=== PATIENT | female | born 1960 | race Caucasian/White ===

== ENCOUNTER → 2018-02-04 | Outpatient (CLI) | payer BC ==
--- NOTE | 2018-02-08 14:34 | MM ---
Reason for exam: screening (asymptomatic). Last mammogram was performed 2 years and 6 months ago. History: Patient is postmenopausal and had first child at age 34. Took hormonal contraceptives for 5 years beginning at age 19. Physical Findings: A clinical breast exam by your physician is recommended on an annual basis and results should be correlated with mammographic findings. MG 3D Screening Mammo W/Cad Bilateral CC and MLO view(s) were taken. Prior study comparison: August 20, 2015, bilateral MG 3d screening mammo w/cad. August 22, 2010, right breast mammogram dig work up. The breast tissue is extremely dense which could obscure a lesion on mammography. There are typically benign round dystrophic calcifications in both breasts. There is no discrete abnormality. ASSESSMENT: Benign, BI-RAD 2 RECOMMENDATION: Routine screening mammogram of both breasts in 1 year.
== END | disposition home or self-care (01) ==
LOC: RADMAMWWP 10:05
PROVIDERS: ATTEND Family Medicine
DX: Z12.31 Encounter for screening mammogram for malignant neoplasm of breast (principal)
CPT/HCPCS: 77063; 77067

== ENCOUNTER → 2018-12-02 | Outpatient (CLI) | payer BC ==
[2018-12-02 14:29] LABS: HCT 45.3 % (34.0-46.0); HGB 14.4 gm/dL (11.4-16.0); MCH 28.6 pg (25.0-35.0); MCHC 31.9 g/dL (31.0-37.0); MCV 89.6 fL (80.0-100.0); Mean Platelet Volume 7.1; Platelet Count 244 k/uL (150-450); RBC 5.06 m/uL (3.80-5.40); RDW 13.2 % (11.5-15.5)
[2018-12-02 19:43] LABS: Albumin 4.7 g/dL (3.80-4.90); Albumin/Globulin Ratio 2.76 (1.60-3.17); Anion Gap 6.5 mmol/L (4.00-12.00); Calcium 9.3 mg/dL (8.7-10.3); Carbon Dioxide 25.5 mmol/L (21.6-31.8); Globulin 1.7 g/dL (1.6-3.3); Potassium 4.2 mmol/L (3.5-5.5); Total Bilirubin 0.5 mg/dL (0.3-1.2); Total Protein 6.4 g/dL (6.2-8.2)
== END | disposition home or self-care (01) ==
LOC: LABWHC1 12:41
PROVIDERS: ATTEND Thoracic Surgery (Cardiothoracic Vascular Surgery)
DX: E63.8 Other specified nutritional deficiencies (principal)
CPT/HCPCS: 36415; 80053; 84134; 85027

== ENCOUNTER → 2019-02-13 | Outpatient (CLI) | payer BC ==
--- NOTE | 2019-02-14 13:49 | MM ---
Reason for exam: screening (asymptomatic). Last mammogram was performed 1 year ago. History: Patient is postmenopausal and had first child at age 34. Took hormonal contraceptives for 5 years beginning at age 19. Physical Findings: A clinical breast exam by your physician is recommended on an annual basis and results should be correlated with mammographic findings. MG 3D Screening Mammo W/Cad Bilateral CC and MLO view(s) were taken. Prior study comparison: February 04, 2018, bilateral MG 3d screening mammo w/cad. August 20, 2015, bilateral MG 3d screening mammo w/cad. The breast tissue is extremely dense which could obscure a lesion on mammography. Benign appearing bilateral calcifications. No suspicious abnormality. No significant changes when compared with prior studies. ASSESSMENT: Benign, BI-RAD 2 RECOMMENDATION: Routine screening mammogram of both breasts in 1 year.
== END | disposition home or self-care (01) ==
LOC: RADMAMWWP 10:09
PROVIDERS: ATTEND Family Medicine
DX: Z12.31 Encounter for screening mammogram for malignant neoplasm of breast (principal)
CPT/HCPCS: 77063; 77067

== ENCOUNTER → 2019-07-10 | Outpatient (CLI) | payer BC ==
--- NOTE | 2019-07-11 10:30 | BD ---
EXAMINATION TYPE: Axial Bone Density DATE OF EXAM: 07/10/2019 COMPARISON: NONE CLINICAL HISTORY: Z 78.0 Height: 5 FT 7 IN Weight: 174 FRAX RISK QUESTIONS: Secondary Osteoporosis: Current Tobacco Use: YES RISK FACTORS HISTORY OF: Active: YES Postmenopausal woman: AGE 54 Lost more than 2 inches in height since high school: YES MEDICATIONS: Additional Medications: JUST STARTED STEROID PACK FOR INFLAMMATION ,MULTI Additional History: EXAM MEASUREMENTS: Bone mineral densitometry was performed using the [employer] System. Bone mineral density as measured about the Lumbar spine is: ----- L1-L4(G/cm2): 1.007 T Score Values are as follows: ----- L2: -1.7 ----- L3: -1.1 ----- L4: -2.0 ----- L1-L4: -1.4 BASELINE Bone mineral density about the R hip (g/cm2): 0.723 Bone mineral density about the L hip (g/cm2): 0.768 T Score values are as follows: -----R Neck: -2.3 -----L Neck: -1.9 -----R Total: -2.1 -----L Total: -1.7 BASELINE IMPRESSION: Osteopenia (T Score between -2.5 and -1). There is slightly increased risk of fracture and the patient may be considered for treatment. Re-Screen 2-5 years. NOTE: T-SCORE=SD OF THE YOUNG ADULT MEAN.
== END | disposition home or self-care (01) ==
LOC: RADBDWWP 14:02
PROVIDERS: ATTEND Family Medicine
DX: M85.80 Other specified disorders of bone density and structure, unspecified site (principal); Z78.0 Asymptomatic menopausal state
CPT/HCPCS: 77080

== ENCOUNTER 2024-03-31 13:48 | Inpatient (IN) | payer BC, MEDICARE ==
--- NOTE | 2024-03-31 15:07 | ED ---
General Adult HPI - General Chief complaint: Abdominal Pain Stated complaint: abd pain Time Seen by Provider: 03/31/24 14:15 Source: patient, RN notes reviewed, old records reviewed Mode of arrival: ambulatory Limitations: no limitations - History of Present Illness Initial comments: This is a 64-year-old female who presents emergency Department complaining of lower abdominal pain both on the right and the left. Patient states it started yesterday and she had some vomiting yesterday and today is become diarrhea. Patient states diarrhea is profuse. Patient denies any fevers chills. Patient states she has had her gallbladder out she did have a many years ago. Patient denies any back pain. Patient denies dysuria hematuria urinary fr equency. Patient denies any chest pain or difficulty breathing. - Related Data Home Medications Medication Instructions Recorded Confirmed Acetaminophen Tab [Tylenol] 500 mg PO DAILY PRN 11/30/18 12/14/18 Multivitamin [Multivitamins Adult 1 tab PO DAILY 11/30/18 12/14/18 Gummies] Allergies Allergy/AdvReac Type Severity Reaction Status Date / Time codeine Allergy Unknown Verified 03/31/24 14:01 NSAIDS (Non-Steroidal Allergy Rash/Hives Verified 03/31/24 14:01 Anti-Inflamma Review of Systems ROS Statement: Those systems with pertinent positive or pertinent negative responses have been documented in the HPI. ROS Other: All systems not noted in ROS Statement are negative. Past Medical History Additional Past Medical History / Comment(s): varicose veins History of Any Multi-Drug Resistant Organisms: None Reported Past Surgical History: Section, Cholecystectomy, Tonsillectomy Past Psychological History: No Psychological Hx Reported Smoking Status: Current every day smoker Past Alcohol Use History: None Reported Past Drug Use History: None Reported - Past Family History Sister(s) Family Medical History: Cancer Additional Family Medical History / Comment(s): Leukemia,bone cancer General Exam - General Exam Comments Initial Comments: GENERAL: Patient is well-developed and well-nourished. Patient is nontoxic and well- hydrated and is in Mild distress. ENT: Neck is soft and supple. No significant lymphadenopathy is noted. Oropharynx is clear. Dry mucous membranes. Neck has full range of motion without eliciting any pain. There is no thyroid enlargement and no masses were felt. EYES: The sclera were anicteric and conjunctiva were pink and moist. Extraocular movements were intact and pupils were equal round and reactive to light. Eyelids were unremarkable. PULMONARY: Unlabored respirations. Good breath sounds bilaterally. No audible rales rhonchi or wheezing was noted. CARDIOVASCULAR: There is a tachycardic and rhythm without any murmurs gallops or rubs. ABDOMEN: Patient has tenderness in the lower quadrants left and right there is no rebound SKIN: Skin is clear with no lesions or rashes and otherwise unremarkable. NEUROLOGIC: Patient is alert and oriented x3. Cranial nerves II through XII are grossly intact. Motor and sensory are also intact. Normal speech, volume and content. Symmetrical smile. MUSCULOSKELETAL: Normal extremities with adequate strength and full range of motion. No lower extremity swelling or edema. No calf tenderness. LYMPHATICS: No significant lymphadenopathy is noted PSYCHIATRIC: Normal psychiatric evaluation. Limitations: no limitations Course Vital Signs 03/31/24 13:56 Temperature 98.1 F Pulse Rate 115 H Respiratory 18 Rate Blood Pressure 113/72 O2 Sat by Pulse 91 L Oximetry Medical Decision Making - Medical Decision Making EKG is interpreted by myself. EKG shows a sinus tachycardia at 122 bpm [place] interval is 170 QRS 129 QT interval 351 QTC is 424. Patient's shows a right bundle branch block. There is no ST segment elevation Was pt. sent in by a medical professional or institution ([facility], COUNTY ATTORNEY, urgent care, hospital, or fpc...) When possible be specific @ -No Did you speak to anyone other than the patient for history (EMS, parent, family, police, friend...)? What history was obtained from this source @ -[No] Did you review nursing and triage notes (agree or disagree)? Why? @ -[I reviewed and agree with nursing and triage notes] Were old charts reviewed (outside hosp., previous admission, EMS record, old EKG, old radiological studies, urgent care reports/EKG's, fpc records)? Report findings @ -[No old charts were reviewed] Differential Diagnosis? @ -Differential Abdominal Pain Women: Appendicitis, Cholecystitis, diverticulosis, ischemic bowel, pancreatitis, hepatitis, UTI, gastroenteritis, AAA, incarcerated hernia, bowel obstruction, constipation, inflammatory bowel, hepatitis, peptic ulcer disease, splenic infarction, perforated viscus, vulvitis, ovarian torsion, PID, kidney stone, placenta abruption, this is not meant to be an all-inclusive list EKG interpreted by me (3pts min.). @ -[As above] X-rays interpreted by me (1pt min.). @ -[None done] CT interpreted by me (1pt min.). @ -CT scan shows acute appendicitis with probable perforation with small amount of free air throughout the abdomen U/S interpreted by me (1pt. min.). @ -[None done] What testing was considered but not performed or refused? (CT, X-rays, U/S, labs)? Why? @ -[None] What meds were considered but not given or refused? Why? @ -[None] Did you discuss the management of the patient with other professionals (professionals i.e. , PA, COUNTY ATTORNEY, lab, RT, psych nurse, social studies department chair, principal automation engineer, teacher, founder and chief technical officer, lining caser)? Give summary @ -I spoke with Dr. Juarez he agreed to admit the patient he will be taking the patient to the OR Was smoking cessation discussed for >3mins.? @ -[No] Was critical care preformed (if so, how long)? @ -35 minutes Were there social determinants of health that impacted care today? How? (Homelessness, low income, unemployed, alcoholism, drug addiction, transportation, low edu. Level, literacy, decrease access to med. care, care home, rehab)? @ -[No] Was there de-escalation of care discussed even if they declined (Discuss DNR or withdrawal of care, Hospice)? DNR status @ -[No] What co-morbidities impacted this encounter? (DM, HTN, Smoking, COPD, CAD, Cancer, CVA, ARF, Chemo, Hep., AIDS, mental health diagnosis, sleep apnea, morbid obesity)? @ -[None] Was patient admitted / discharged? Hospital course, mention meds given and route, prescriptions, significant lab abnormalities, going to OR and other pertinent info. @ -Acute appendicitis. Patient was started on Zosyn. Dr. Lynch was contacted who be taking the patient to the OR Undiagnosed new problem with uncertain prognosis? @ -[No] Drug Therapy requiring intensive monitoring for toxicity (Heparin, Nitro, Insulin, Cardizem)? @ -[No] Were any procedures done? @ -[No] Diagnosis/symptom? @ -Acute appendicitis Acute, or Chronic, or Acute on Chronic? @ -Acute Uncomplicated (without systemic symptoms) or Complicated (systemic symptoms)? @ -Complicated Side effects of treatment? @ -[No] Exacerbation, Progression, or Severe Exacerbation? @ -[No] Poses a threat to life or bodily function? How? (Chest pain, [place], [place], pneumonia, PE, COPD, DKA, ARF, appy, cholecystitis, CVA, Diverticulitis, Homicidal, Suicidal, threat to staff... and all critical care pts) @ -Yes this could lead to sepsis and endorgan dysfunction - Lab Data Result diagrams: 03/31/24 14:50 03/31/24 14:50 Lab Results 03/31/24 03/31/24 03/31/24 Range/Units 14:50 14:50 14:50 WBC 14.3 H (3.8-10.6) k/uL RBC 5.71 H (3.80-5.40) m/uL Hgb 16.4 H (11.4-16.0) gm/dL Hct 50.1 H (34.0-46.0) % MCV 87.6 (80.0-100.0) fL MCH 28.7 (25.0-35.0) pg MCHC 32.7 (31.0-37.0) g/dL RDW 12.7 (11.5-15.5) % Plt Count 274 (150-450) k/uL MPV 7.9 Neutrophils % 88 % Lymphocytes % 6 % Monocytes % 4 % Eosinophils % 1 % Basophils % 0 % Neutrophils # 12.6 H (1.3-7.7) k/uL Lymphocytes # 0.9 L (1.0-4.8) k/uL Monocytes # 0.6 (0-1.0) k/uL Eosinophils # 0.1 (0-0.7) k/uL Basophils # 0.0 (0-0.2) k/uL Sodium 134 L (137-145) mmol/L Potassium 3.3 L (3.5-5.1) mmol/L Chloride 102 (98-107) mmol/L Carbon Dioxide 19 L (22-30) mmol/L Anion Gap 13 mmol/L BUN 22 H (7-17) mg/dL Creatinine 1.25 H (0.52-1.04) mg/dL Est GFR (CKD-EPI)AfAm 52 (>60 ml/min/1.73 sqM) Est GFR (CKD-EPI)NonAf 45 (>60 ml/min/1.73 sqM) Glucose 159 H (74-99) mg/dL Plasma Lactic Acid Alonso 2.6 H* (0.7-2.0) mmol/L Calcium 9.7 (8.4-10.2) mg/dL Total Bilirubin 2.7 H (0.2-1.3) mg/dL AST 24 (14-36) U/L ALT 16 (4-34) U/L Alkaline Phosphatase 121 (38-126) U/L Total Protein 6.9 (6.3-8.2) g/dL Albumin 4.2 (3.5-5.0) g/dL Amylase 34 (30-110) U/L Lipase 21 L (23-300) U/L C. difficile (EIA) Intrp (Negative) 03/31/24 Range/Units 15:08 WBC (3.8-10.6) k/uL RBC (3.80-5.40) m/uL Hgb (11.4-16.0) gm/dL Hct (34.0-46.0) % MCV (80.0-100.0) fL MCH (25.0-35.0) pg MCHC (31.0-37.0) g/dL RDW (11.5-15.5) % Plt Count (150-450) k/uL MPV Neutrophils % % Lymphocytes % % Monocytes % % Eosinophils % % Basophils % % Neutrophils # (1.3-7.7) k/uL Lymphocytes # (1.0-4.8) k/uL Monocytes # (0-1.0) k/uL Eosinophils # (0-0.7) k/uL Basophils # (0-0.2) k/uL Sodium (137-145) mmol/L Potassium (3.5-5.1) mmol/L Chloride (98-107) mmol/L Carbon Dioxide (22-30) mmol/L Anion Gap mmol/L BUN (7-17) mg/dL Creatinine (0.52-1.04) mg/dL Est GFR (CKD-EPI)AfAm (>60 ml/min/1.73 sqM) Est GFR (CKD-EPI)NonAf (>60 ml/min/1.73 sqM) Glucose (74-99) mg/dL Plasma Lactic Acid Alonso (0.7-2.0) mmol/L Calcium (8.4-10.2) mg/dL Total Bilirubin (0.2-1.3) mg/dL AST (14-36) U/L ALT (4-34) U/L Alkaline Phosphatase (38-126) U/L Total Protein (6.3-8.2) g/dL Albumin (3.5-5.0) g/dL Amylase (30-110) U/L Lipase (23-300) U/L C. difficile (EIA) Intrp Negative (Negative) Disposition Clinical Impression: Acute appendicitis with perforation and localized peritonitis Disposition: ADMITTED IP TO THIS HOSP Referrals: Rex Funes MD [Primary Care Provider] - 1-2 days Time of Disposition: 18:49
[2024-03-31 16:26] LABS: Basophils % (A) 0 %; Eosinophils # (A) 0.1 k/uL (0-0.7); Eosinophils % (A) 1 %; HCT 50.1 % (34.0-46.0); HGB 16.4 gm/dL (11.4-16.0); Lymphocytes # (A) 0.9 k/uL (1.0-4.8); Lymphocytes % (A) 6 %; MCH 28.7 pg (25.0-35.0); MCHC 32.7 g/dL (31.0-37.0); MCV 87.6 fL (80.0-100.0); Mean Platelet Volume 7.9; Monocytes # (A) 0.6 k/uL (0-1.0); Monocytes % (A) 4 %; Neutrophils # (A) 12.6 k/uL (1.3-7.7); Neutrophils % (A) 88 %; Platelet Count 274 k/uL (150-450); RBC 5.71 m/uL (3.80-5.40); RDW 12.7 % (11.5-15.5); WBC 14.3 k/uL (3.8-10.6)
[2024-03-31 16:41] LABS: ALT 16 U/L (4-34); AST 24 U/L (14-36); African American GFR (CKD) 52 (>60 ml/min/1.73 sqM); Albumin 4.2 g/dL (3.5-5.0); Alkaline Phosphatase 121 U/L (38-126); Amylase 34 U/L (30-110); Anion Gap 13 mmol/L; Blood Urea Nitrogen 22 mg/dL (7-17); Calcium 9.7 mg/dL (8.4-10.2); Carbon Dioxide 19 mmol/L (22-30); Chloride 102 mmol/L (98-107); Glucose 159 mg/dL (74-99); Lipase 21 U/L (23-300); Non-African American GFR(CKD) 45 (>60 ml/min/1.73 sqM); Potassium 3.3 mmol/L (3.5-5.1); Sodium 134 mmol/L (137-145); Total Bilirubin 2.7 mg/dL (0.2-1.3); Total Protein 6.9 g/dL (6.3-8.2)
[2024-03-31] MEDS: DIPHENOX-ATROP 2.5-0.025 MG 1 EACH TAB PO STA (16:50)
[2024-03-31] MEDS: SODIUM CHLORIDE 0.9% 1,000 ML IV ONE ×2 (16:51→18:59)
[2024-03-31] MEDS: ONDANSETRON 4 MG/2 ML VIAL IVP STA (16:51)
[2024-03-31] MEDS: SODIUM CHLORIDE 0.9% 500 ML 500 ML IV ONE (16:52)
--- NOTE | 2024-03-31 18:33 | CT ---
EXAMINATION TYPE: CT abdomen pelvis w con CT DLP: 855 mGycm, Automated exposure control for dose reduction was used. DATE OF EXAM: 03/31/2024 6:02 PM COMPARISON: None. CLINICAL INDICATION:Female, 64 years old with history of Lower abdominal pain; Lower abdominal pain. no history. TECHNIQUE: Axial CT abdomen pelvis w con;Sagittal and coronal reformats were created on a separate w orkstation. Contrast used:80ml mL of Isovue 300 with IV Contrast, (none if empty) Oral contrast used: without Oral Contrast (none if empty) FINDINGS: LOWER CHEST: Atelectasis changes in the lung bases right ABDOMEN LIVER: Unremarkable GALLBLADDER AND BILE DUCTS: The gallbladder is surgically absent. PANCREAS: Unremarkable. SPLEEN: Unremarkable. ADRENAL GLANDS: Unremarkable. KIDNEYS AND URETERS: No evidence of hydronephrosis or renal calculus. The ureters are unremarkable. PELVIS BLADDER: Unremarkable REPRODUCTIVE: Unremarkable. ABDOMEN & PELVIS STOMACH AND BOWEL: No evidence of bowel obstruction. Short segment of circumferential wall thickening of kristine small bowel in the right lower quadrant with wall thickening up to 7 mm at the terminal ileu m. Appendicolith in the ostium of the appendix measuring 5 mm wit dilation of the appendix and fat stran ding. The appendix measures 18 mm and diameter. Scattered free air is seen throughout the abdomen. PERITONEUM/RETROPERITONEUM: Scattered foci of pneumoperitoneum seen throughout the abdomen. Structure s no free fluid layering in the pelvis. VASCULATURE: No evidence of aortic aneurysm. MUSCULOSKELETAL: No acute osseous abnormalities LYMPH NODES: No gross evidence for lymphadenopathy. SOFT TISSUE/ABDOMINAL WALL: Unremarkable IMPRESSION: 1. Acute appendicitis with obstructing calculus at the ostium of the appendix and pneumoperitoneum s uggesting rupture. Free fluid in the pelvis without organizing fluid collection. Surgical consultatio n recommended. 2. Short segment of terminal ileum wall thickening possibly reactive to #1. Correlate for enteritis. 3. Colonic diverticulosis. Findings communicated to Dr. Francisco Gatica MD on 03/31/2024 6:[address] Musa Fraga.
[2024-03-31] MEDS: PIPERACILLIN-TAZOBACTAM 3.375 GM in SODIUM CHLORIDE 0.9% 100 ML IVPB STA (18:38)
[2024-03-31] MEDS ORDERED: NEOSTIGMINE 1 MG/ML 10 ML VIAL ONE (20:00)
[2024-03-31] MEDS ORDERED: LIDOCAINE 1% INJ 10MG/ML (20 ML MDV) ONE (20:00)
[2024-03-31] MEDS ORDERED: PROPOFOL 10 MG/ML 20 ML VIAL IV ONE (20:00)
[2024-03-31] MEDS ORDERED: fentaNYL (PF) 50 MCG/ML 2 ML AMP ONE (20:00)
[2024-03-31] MEDS ORDERED: ONDANSETRON 4 MG/2 ML VIAL ONE (20:00)
[2024-03-31] MEDS ORDERED: SUGAMMADEX SODIUM 200 MG/2 ML SDV IV ONE (20:00)
[2024-03-31] MEDS ORDERED: PHENYLEPHRINE-0.9% NACL SYG 1,000 MCG/10 ML SYRINGE ONE (20:00)
[2024-03-31] MEDS ORDERED: GLYCOPYRROLATE 0.2 MG/ML 2 ML VIAL ONE (20:00)
[2024-03-31] MEDS ORDERED: MIDAZOLAM 2 MG/2 ML VIAL ONE (20:00)
[2024-03-31] MEDS ORDERED: HEPARIN SODIUM,PORCINE 5,000 UNIT/ML 1 ML VIAL ONE (20:00)
[2024-03-31] MEDS ORDERED: ROCURONIUM 10 MG/ML (5 ML VIAL) IV ONE (20:00)
[2024-03-31] MEDS ORDERED: SUCCINYLCHOLINE CHLORIDE 200 MG/10 ML VIAL IV ONE (20:00)
[2024-03-31] MEDS: IV FLUID CONTINUATION 100 ML IV ONE (20:03)
--- NOTE | 2024-03-31 20:04 | P.GSHP ---
History of Present Illness H&P Date: 03/31/24 Chief Complaint: abdominal pain is a 64-year-old female who has a 48 hour history of severe abdominal pain. Patient was worked up and Roman. She has evidence of perforated appendicitis. Past Medical History Additional Past Medical History / Comment(s): varicose veins History of Any Multi-Drug Resistant Organisms: None Reported Past Surgical History: Section, Cholecystectomy, Tonsillectomy Past Psychological History: No Psychological Hx Reported Smoking Status: Current every day smoker Past Alcohol Use History: None Reported Past Drug Use History: None Reported - Past Family History Sister(s) Family Medical History: Cancer Additional Family Medical History / Comment(s): Leukemia,bone cancer Medications and Allergies Home Medications Medication Instructions Recorded Confirmed Type Acetaminophen Tab [Tylenol] 500 mg PO DAILY PRN 11/30/18 03/31/24 History Multivitamin [Multivitamins Adult 1 tab PO DAILY 11/30/18 03/31/24 History Gummies] Allergies Allergy/AdvReac Type Severity Reaction Status Date / Time codeine Allergy Unknown Verified 03/31/24 19:07 NSAIDS (Non-Steroidal Allergy Rash/Hives Verified 03/31/24 19:07 Anti-Inflamma Surgical - Exam Vital Signs Temp Pulse Resp BP Pulse Ox 98.1 F 115 H 18 113/72 91 L 03/31/24 13:56 03/31/24 13:56 03/31/24 13:56 03/31/24 13:56 03/31/24 13:56 - General well developed, well nourished, no distress - Eyes PERRL - ENT normal pinna - Neck no masses - Respiratory normal expansion - Cardiovascular Rhythm: regular - Abdomen patient has multiple laparotomy scars. She is tender on the right side with tenderness on palpation and rebound. Results - Labs 03/31/24 14:50 03/31/24 14:50 Abnormal Lab Results - Last 24 Hours (Table) 03/31/24 03/31/24 03/31/24 Range/Units 14:50 14:50 14:50 WBC 14.3 H (3.8-10.6) k/uL RBC 5.71 H (3.80-5.40) m/uL Hgb 16.4 H (11.4-16.0) gm/dL Hct 50.1 H (34.0-46.0) % Neutrophils # 12.6 H (1.3-7.7) k/uL Lymphocytes # 0.9 L (1.0-4.8) k/uL Sodium 134 L (137-145) mmol/L Potassium 3.3 L (3.5-5.1) mmol/L Carbon Dioxide 19 L (22-30) mmol/L BUN 22 H (7-17) mg/dL Creatinine 1.25 H (0.52-1.04) mg/dL Glucose 159 H (74-99) mg/dL Plasma Lactic Acid Alonso 2.6 H* (0.7-2.0) mmol/L Total Bilirubin 2.7 H (0.2-1.3) mg/dL Lipase 21 L (23-300) U/L 03/31/24 Range/Units 19:10 WBC (3.8-10.6) k/uL RBC (3.80-5.40) m/uL Hgb (11.4-16.0) gm/dL Hct (34.0-46.0) % Neutrophils # (1.3-7.7) k/uL Lymphocytes # (1.0-4.8) k/uL Sodium (137-145) mmol/L Potassium (3.5-5.1) mmol/L Carbon Dioxide (22-30) mmol/L BUN (7-17) mg/dL Creatinine (0.52-1.04) mg/dL Glucose (74-99) mg/dL Plasma Lactic Acid Alonso 2.9 H* (0.7-2.0) mmol/L Total Bilirubin (0.2-1.3) mg/dL Lipase (23-300) U/L Diabetes panel 03/31/24 Range/Units 14:50 Sodium 134 L (137-145) mmol/L Potassium 3.3 L (3.5-5.1) mmol/L Chloride 102 (98-107) mmol/L Carbon Dioxide 19 L (22-30) mmol/L BUN 22 H (7-17) mg/dL Creatinine 1.25 H (0.52-1.04) mg/dL Glucose 159 H (74-99) mg/dL Calcium 9.7 (8.4-10.2) mg/dL AST 24 (14-36) U/L ALT 16 (4-34) U/L Alkaline Phosphatase 121 (38-126) U/L Total Protein 6.9 (6.3-8.2) g/dL Albumin 4.2 (3.5-5.0) g/dL Calcium panel 03/31/24 Range/Units 14:50 Calcium 9.7 (8.4-10.2) mg/dL Albumin 4.2 (3.5-5.0) g/dL Pituitary panel 03/31/24 Range/Units 14:50 Sodium 134 L (137-145) mmol/L Potassium 3.3 L (3.5-5.1) mmol/L Chloride 102 (98-107) mmol/L Carbon Dioxide 19 L (22-30) mmol/L BUN 22 H (7-17) mg/dL Creatinine 1.25 H (0.52-1.04) mg/dL Glucose 159 H (74-99) mg/dL Calcium 9.7 (8.4-10.2) mg/dL Adrenal panel 03/31/24 Range/Units 14:50 Sodium 134 L (137-145) mmol/L Potassium 3.3 L (3.5-5.1) mmol/L Chloride 102 (98-107) mmol/L Carbon Dioxide 19 L (22-30) mmol/L BUN 22 H (7-17) mg/dL Creatinine 1.25 H (0.52-1.04) mg/dL Glucose 159 H (74-99) mg/dL Calcium 9.7 (8.4-10.2) mg/dL Total Bilirubin 2.7 H (0.2-1.3) mg/dL AST 24 (14-36) U/L ALT 16 (4-34) U/L Alkaline Phosphatase 121 (38-126) U/L Total Protein 6.9 (6.3-8.2) g/dL Albumin 4.2 (3.5-5.0) g/dL - Imaging CT scan - abdomen: report reviewed (18 mm dilated appendix with fat stranding with possible perforation.) Assessment and Plan Assessment: ruptured appendix. Patient was taken for laparoscopic possible open appendectomy.
[2024-03-31] MEDS: IV FLUID CONTINUATION 1,000 ML IV ONE ×3 (20:10→21:37)
[2024-03-31] MEDS: LIDOCAINE 1%-EPI 1:100,000 20 ML VIAL SQ ONE (20:21)
[2024-03-31] MEDS ORDERED: NALOXONE 0.4 MG/ML 1 ML VIAL IV PRN (20:51)
--- NOTE | 2024-03-31 20:51 | P.OP ---
Date of Procedure: 03/31/24 Preoperative Diagnosis: perforated appendicitis Postoperative Diagnosis: perforated appendicitis Procedure(s) Performed: laparoscopic appendectomy with drainage of abscess Anesthesia: ELOY Surgeon: Kyle Collins Estimated Blood Loss (ml): 5 Pathology: other (appendix) Condition: stable Disposition: PACU Description of Procedure: HarThe patient's placed on the operating table in the supine position. The patient received general anesthesia. The abdomen was prepped and draped in the usual sterile fashion. The skin was anesthetized 1% local Xylocaine at the trocar sites. Using an 11 blade the skin was incised at the umbilicus. The umbilicus was grasped with a Damon clamp and then a Veress needle was placed into the peritoneal cavity. Position of the Veress needle was confirmed with positive drop test. After adequate insufflation a 5 mm trocar was placed into the peritoneal cavity. The abdomen was further insufflated. And then the laparoscope was placed in the peritoneal cavity. Next a 5 mm trocar was placed in the midline suprapubic position. And then a 10 mm trocar was placed in the midline epigastric position. The patient was rotated with the right side up and in Trendelenburg. The appendix was visualized. The appendix appeared to be inflamed. the appendix was perforated near the base of the appendix.The appendix was grasped and then using the Harmonic scissors the mesoappendix was divided. the base of the appendix and cecum were divided using the laparoscopic DENNIS stapler. The appendix was placed into an Endo Catch and brought out through the 10 mm trocar site. The abdomen was irrigated. a SHELL drains placed in the right lower quadrant. This was brought out through the epigastric port site. The SHELL drain secured with 2-0 nylon.There is no bleeding seen. The trochars withdrawn. The skin was closed interrupted 3-0 Monocryl suture. Dermabond dressing was applied. Patient was sent to recovery room in stable condition.
[2024-03-31] MEDS: LACTATED RINGERS 1,000 ML IV SCH (21:09)
[2024-03-31] MEDS: HYDROcodone/APAP 5-325MG 1 EACH TAB PO PRN (22:09)
[2024-03-31] MEDS: KETOROLAC 15 MG/ML 1 ML VIAL IVP SCH (23:11)
[2024-04-01] MEDS: SODIUM CHLORIDE 0.9% 500 ML 500 ML IV ONE (00:32)
[2024-04-01] MEDS ORDERED: PIPERACILLIN-TAZOBACTAM 3.375 GM in SODIUM CHLORIDE 0.9% 100 ML IVPB SCH (01:00)
[2024-04-01] MEDS: SODIUM CHLORIDE 0.9% 500 ML BAG IV STA (01:28)
[2024-04-01] MEDS: PIPERACILLIN-TAZOBACTAM 3.375 GM in SODIUM CHLORIDE 0.9% 100 ML IVPB SCH (01:28)
[2024-04-01 02:36] LABS: Basophils % (A) 0 %; Eosinophils % (A) 0 %; HCT 38.9 % (34.0-46.0); Lymphocytes # (A) 1.1 k/uL (1.0-4.8); Lymphocytes % (A) 8 %; MCH 29.3 pg (25.0-35.0); MCHC 32.5 g/dL (31.0-37.0); MCV 90.1 fL (80.0-100.0); Mean Platelet Volume 8.3; Monocytes # (A) 0.7 k/uL (0-1.0); Monocytes % (A) 5 %; Neutrophils # (A) 11.7 k/uL (1.3-7.7); Neutrophils % (A) 86 %; Platelet Count 211 k/uL (150-450); RBC 4.32 m/uL (3.80-5.40); RDW 12.8 % (11.5-15.5); WBC 13.7 k/uL (3.8-10.6)
[2024-04-01] MEDS: LACTATED RINGERS 1,000 ML IV SCH (02:42)
[2024-04-01 02:45] LABS: HGB 12.7 gm/dL (11.4-16.0)
[2024-04-01 02:58] LABS: African American GFR (CKD) 80 (>60 ml/min/1.73 sqM); Anion Gap 7 mmol/L; Blood Urea Nitrogen 19 mg/dL (7-17); Calcium 7.6 mg/dL (8.4-10.2); Carbon Dioxide 18 mmol/L (22-30); Chloride 110 mmol/L (98-107); Glucose 106 mg/dL (74-99); Non-African American GFR(CKD) 70 (>60 ml/min/1.73 sqM); Potassium 3.4 mmol/L (3.5-5.1); Sodium 135 mmol/L (137-145)
[2024-04-01] MEDS: ENOXAPARIN 30 MG/0.3 ML SYRINGE SQ SCH (08:58)
[2024-04-01] MEDS: ACETAMINOPHEN TAB 325 MG TAB PO PRN (09:04)
[2024-04-01 09:49] LABS: Basophils # (A) 0.05 X 10*3/uL (0.00-0.10); Basophils % (A) 0.4 %; Eosinophils # (A) 0.16 X 10*3/uL (0.04-0.35); Eosinophils % (A) 1.2 %; HCT 38.9 % (37.2-46.3); HGB 12.8 g/dL (12.0-15.0); Lymphocytes # (A) 1.51 X 10*3/uL (0.90-5.00); Lymphocytes % (A) 10.9 %; MCH 28.2 pg (27.0-32.0); MCHC 32.9 g/dL (32.0-37.0); MCV 85.7 FL (80.0-97.0); Monocytes # (A) 1.09 X 10*3/uL (0.20-1.00); Monocytes % (A) 7.9 %; NRBC Per 100 WBC 0 X 10*3/uL (0.00-0.01); Neutrophils # (A) 11.01 X 10*3/uL (1.80-7.70); Neutrophils % (A) 79.2 %; Platelet Count 203 X 10*3/uL (140-440); RBC 4.54 X 10*6/uL (4.10-5.20); RDW 13.8 % (11.5-14.5); WBC 13.88 X 10*3/uL (4.50-10.00)
[2024-04-01 09:57] LABS: ALT 10 U/L (8-44); AST 13 U/L (13-35); Albumin 3.1 g/dL (3.8-4.9); Albumin/Globulin Ratio 1.82 Ratio (1.60-3.17); Alkaline Phosphatase 90 U/L (41-126); Calcium 7.6 mg/dL (8.7-10.3); Carbon Dioxide 19.8 mmol/L (21.6-31.8); Chloride 106 mmol/L (96-109); Globulin 1.7 g/dL (1.6-3.3); Glucose 94 mg/dL (70-110); Potassium 3.9 mmol/L (3.5-5.5); Sodium 137 mmol/L (135-145); Total Protein 4.8 g/dL (6.2-8.2)
[2024-04-01 16:33] LABS: Appearance,Urine Cloudy (Clear); Bilirubin,Urine Negative (Negative); Blood,Urine Trace (Negative); Color,Urine Yellow; Glucose,Urine (UA) Negative (Negative); Hyaline Casts,Urine 1 /lpf (0-2); Ketones,Urine Negative (Negative); Leukocyte Esterase,Urine Negative (Negative); Mucus,Urine Rare /hpf; Nitrite,Urine Negative (Negative); Protein,Urine 1+ (Negative); RBC,Urine 6 /hpf (0-5); Specific Gravity,Urine 1.036 (1.001-1.035); Squamous Epithelial Cell,Urine 1 /hpf (0-4); Urobilinogen,Urine <2.0 mg/dL (<2.0); WBC,Urine 4 /hpf (0-5)
--- NOTE | 2024-04-01 16:33 | P.PN ---
Progress Note - Text Progress Note Date: 04/01/24 CHIEF COMPLAINT: Abdominal Pain. HISTORY OF PRESENT ILLNESS: Patient states she is having a lot of fatigue and still considerable abdominal pain. She did tolerate CLD. PHYSICAL EXAM: VITAL SIGNS: Reviewed. GENERAL: no acute distress. HEENT: scleral icterus ABDOMEN: Soft. mildly distended. Incisions C/D/I skin: Jaundiced ASSESSMENT: 1. POD #1 Laparoscopic Appendectomy secondary to Perforated Appendicitis PLAN: -Advance to Low Fat Diet -Pain and Nausea Control -OOB, ambulate, IS -Likely discharge tomorrow
--- NOTE | 2024-04-02 07:14 | P.CONS ---
History of Present Illness - Reason for Consult Consult date: 04/01/24 Perforated appendicitis Requesting physician: Kyle Collins - Chief Complaint Abdominal pain x 2 days - History of Present Illness Patient is a 64-year-old female with a past medical history significant for varicose vein current everyday smoker presenting to the hospital yesterday afternoon for evaluation of abdominal pain that has been going on for about a day before presentation to the hospital patient pain has been mostly to the right lower abdominal and across the lower abdominal area patient was describing the pain to be sharp moderate to severe intensity did have associated vomiting and an episode of diarrhea patient did have some chills denies high- grade fever with the symptoms the patient was evaluated on presentation to the hospital patient was afebrile and no fever have been recorded subsequently patient was tachycardic mildly hypertensive but not requiring any pressor support not hypoxic or need for supplemental oxygen patient did have a white count of 13.7 creatinine 0.88 patient did have a abdominal pelvis CT with evidence of acute appendicitis and pneumoperitoneum suggestive of rupture free fluid in the pelvis short segment of primarily with thickening possibly reactive patient was taken to the OR and the patient is status post laparoscopic appendectomy with drainage of the abscess patient has been admitted to the hospital started on Zosyn infectious disease was consulted for further management of antibiotic therapy Review of Systems Positive point and negatives has been mentioned in the HPI, complete review of systems was performed and all other systems are negative Past Medical History Additional Past Medical History / Comment(s): varicose veins History of Any Multi-Drug Resistant Organisms: None Reported Past Surgical History: Appendectomy, Section, Cholecystectomy, Tonsillectomy Past Anesthesia/Blood Transfusion Reactions: No Reported Reaction Past Psychological History: No Psychological Hx Reported Smoking Status: Current every day smoker Past Alcohol Use History: None Reported Past Drug Use History: None Reported - Past Family History Sister(s) Family Medical History: Cancer Additional Family Medical History / Comment(s): Leukemia,bone cancer Father Family Medical History: Diabetes Mellitus Medications and Allergies Home Medications Medication Instructions Recorded Confirmed Type Acetaminophen Tab [Tylenol] 500 mg PO DAILY PRN 11/30/18 03/31/24 History Multivitamin [Multivitamins Adult 1 tab PO DAILY 11/30/18 03/31/24 History Gummies] Allergies Allergy/AdvReac Type Severity Reaction Status Date / Time codeine Allergy Unknown Verified 03/31/24 19:07 NSAIDS (Non-Steroidal Allergy Rash/Hives Verified 03/31/24 19:07 Anti-Inflamma Physical Exam Vitals: Vital Signs Temp Pulse Pulse Pulse Resp BP BP 04/01/24 08:00 97.3 F L 100 18 04/01/24 07:50 04/01/24 07:49 04/01/24 07:43 70/42 04/01/24 06:23 98.0 F 94 17 04/01/24 05:47 87/56 04/01/24 05:13 98.0 F 91 17 04/01/24 04:20 91 18 04/01/24 03:59 90 17 04/01/24 02:50 89 18 04/01/24 02:35 94 17 04/01/24 02:20 93 16 04/01/24 02:05 99 16 04/01/24 01:50 89 16 04/01/24 01:43 92 16 04/01/24 01:35 95 16 04/01/24 01:14 93 17 04/01/24 01:00 04/01/24 00:46 04/01/24 00:35 04/01/24 00:18 03/31/24 23:54 03/31/24 23:52 99 03/31/24 23:20 102 H 18 03/31/24 22:50 102 H 18 03/31/24 22:35 101 H 17 03/31/24 22:25 20 03/31/24 22:20 99 18 03/31/24 22:05 98.5 F 101 H 18 03/31/24 21:50 95 17 03/31/24 21:41 96 16 03/31/24 21:31 91 16 03/31/24 21:16 90 16 03/31/24 21:01 98.1 F 87 16 03/31/24 13:56 98.1 F 115 H 18 113/72 BP BP Pulse Ox 04/01/24 08:00 80/50 94 L 04/01/24 07:50 84/56 04/01/24 07:49 77/52 04/01/24 07:43 04/01/24 06:23 81/51 93 L 04/01/24 05:47 04/01/24 05:13 85/52 93 L 04/01/24 04:20 87/55 94 L 04/01/24 03:59 90/57 95 04/01/24 02:50 86/51 94 L 04/01/24 02:35 85/52 94 L 04/01/24 02:20 83/50 94 L 04/01/24 02:05 84/51 94 L 04/01/24 01:50 89/56 96 04/01/24 01:43 92/56 95 04/01/24 01:35 92/56 95 04/01/24 01:14 81/47 94 L 04/01/24 01:00 84/53 04/01/24 00:46 78/50 04/01/24 00:35 80/49 04/01/24 00:18 72/45 03/31/24 23:54 92/62 03/31/24 23:52 86/56 03/31/24 23:20 91/59 93 L 03/31/24 22:50 94/60 93 L 03/31/24 22:35 91/59 93 L 03/31/24 22:25 03/31/24 22:20 82/52 93 L 03/31/24 22:05 98/61 93 L 03/31/24 21:50 89/58 92 L 03/31/24 21:41 96/55 92 L 03/31/24 21:31 96/55 96 03/31/24 21:16 86/52 95 03/31/24 21:01 86/54 95 03/31/24 13:56 91 L Intake and Output 03/31/24 04/01/24 04/01/24 22:59 06:59 14:59 Intake Total 1600 2200 Output Total 50 735 Balance 1550 1465 Intake: IV 1600 Intake, IV Titration 2200 Amount Lactated Ringers 1,000 ml 500 @ 125 mls/hr IV .Q8H [facility] Rx#:[id number] Lactated Ringers 1,000 ml 600 @ 150 mls/hr IV .Q6H40M [facility] Rx#:[id number] Piperacillin-Tazobactam 3 100 .375 gm In Sodium Chloride 0.9% 100 ml @ 25 mls/hr IVPB Q8H [facility] Rx#: [id number] Sodium Chloride 0.9% 500 500 ml 500 ml @ 999 mls/hr IV .Q31M [facility] Rx#:[id number] Sodium Chloride 0.9% 500 500 ml 500 ml @ 999 mls/hr IV .Q31M [facility] Rx#:[id number] Output: Drainage 45 65 Abdomen 45 65 Urine 450 Post Void Residual 220 Estimated Blood Loss 5 Other: # Voids 1 Weight 79.379 kg GENERAL DESCRIPTION: Elderly female lying in bed, no distress. No tachypnea or accessory muscle of respiration use. HEENT: Shows Pallor , no scleral icterus. Oral mucous membrane is dry. No pharyngeal erythema or thrush NECK: Trachea central, no thyromegaly. LUNGS: Unlabored breathing. Clear to auscultation anteriorly. No wheeze or crackle. HEART: S1, S2, regular rate and rhythm. No loud murmur ABDOMEN: Soft, 9984 tenderness no guarding or rigidity EXTREMITIES: No edema of feet. SKIN: No rash, no masses palpable. NEUROLOGICAL: The patient is awake, alert, oriented x3, mood and affect normal. Results CBC & Chem 7: 04/01/24 05:54 04/01/24 05:54 Labs: Abnormal Lab Results - Last 24 Hours (Table) 03/31/24 03/31/24 03/31/24 Range/Units 14:50 14:50 14:50 WBC 14.3 H (3.8-10.6) k/uL RBC 5.71 H (3.80-5.40) m/uL Hgb 16.4 H (11.4-16.0) gm/dL Hct 50.1 H (34.0-46.0) % Immature Gran # (0.00-0.04) X 10*3/uL Neutrophils # 12.6 H (1.3-7.7) k/uL Lymphocytes # 0.9 L (1.0-4.8) k/uL Monocytes # (0.20-1.00) X 10*3/uL Sodium 134 L (137-145) mmol/L Potassium 3.3 L (3.5-5.1) mmol/L Chloride (98-107) mmol/L Carbon Dioxide 19 L (22-30) mmol/L BUN 22 H (7-17) mg/dL Creatinine 1.25 H (0.52-1.04) mg/dL Glucose 159 H (74-99) mg/dL Plasma Lactic Acid Alonso 2.6 H* (0.7-2.0) mmol/L Calcium (8.4-10.2) mg/dL Total Bilirubin 2.7 H (0.2-1.3) mg/dL Total Protein (6.2-8.2) g/dL Albumin (3.8-4.9) g/dL Lipase 21 L (23-300) U/L 03/31/24 04/01/24 04/01/24 Range/Units 19:10 01:21 01:21 WBC 13.7 H (3.8-10.6) k/uL RBC (3.80-5.40) m/uL Hgb (11.4-16.0) gm/dL Hct (34.0-46.0) % Immature Gran # (0.00-0.04) X 10*3/uL Neutrophils # 11.7 H (1.3-7.7) k/uL Lymphocytes # (1.0-4.8) k/uL Monocytes # (0.20-1.00) X 10*3/uL Sodium 135 L (137-145) mmol/L Potassium 3.4 L (3.5-5.1) mmol/L Chloride 110 H (98-107) mmol/L Carbon Dioxide 18 L (22-30) mmol/L BUN 19 H (7-17) mg/dL Creatinine (0.52-1.04) mg/dL Glucose 106 H (74-99) mg/dL Plasma Lactic Acid Alonso 2.9 H* (0.7-2.0) mmol/L Calcium 7.6 L (8.4-10.2) mg/dL Total Bilirubin (0.2-1.3) mg/dL Total Protein (6.2-8.2) g/dL Albumin (3.8-4.9) g/dL Lipase (23-300) U/L 04/01/24 04/01/24 Range/Units 05:54 05:54 WBC 13.88 H (3.8-10.6) k/uL RBC (3.80-5.40) m/uL Hgb (11.4-16.0) gm/dL Hct (34.0-46.0) % Immature Gran # 0.06 H (0.00-0.04) X 10*3/uL Neutrophils # 11.01 H (1.3-7.7) k/uL Lymphocytes # (1.0-4.8) k/uL Monocytes # 1.09 H (0.20-1.00) X 10*3/uL Sodium (137-145) mmol/L Potassium (3.5-5.1) mmol/L Chloride (98-107) mmol/L Carbon Dioxide 19.8 L (22-30) mmol/L BUN (7-17) mg/dL Creatinine (0.52-1.04) mg/dL Glucose (74-99) mg/dL Plasma Lactic Acid Alonso (0.7-2.0) mmol/L Calcium 7.6 L (8.4-10.2) mg/dL Total Bilirubin 2.0 H (0.2-1.3) mg/dL Total Protein 4.8 L (6.2-8.2) g/dL Albumin 3.1 L (3.8-4.9) g/dL Lipase (23-300) U/L Assessment and Plan (1) Acute appendicitis with perforation and localized peritonitis Current Visit: Yes Status: Acute Code(s): K35.32 - AC APPENDICITIS W PERF, LOC PERITONITIS, & GANGR, W/O ABSCS SNOMED Code(s): 927149674 (2) Leukocytosis Current Visit: Yes Status: Acute Code(s): D72.829 - ELEVATED WHITE BLOOD CELL COUNT, UNSPECIFIED SNOMED Code(s): 521517822 Plan: 1patient presented to hospital with abdominal pain nausea and vomiting and this patient has been diagnosed with a perforated appendicitis with intra-abdominal abscess status post appendectomy and drainage of the abscess will need to cover for the enteric gram-negative both aerobes and anaerobes 2-blood cultures will be obtained the patient spiked any fever as the patient has already started on antibiotics 3-plan at this time is to continue with Zosyn 3.375 g every 8 hour and monitor clinical course closely Question and concerns were answered We will follow on clinical condition and cultures to further adjust medication if needed Thank you for this consultation we will follow the patient along with you Dictation was produced using [employer] dictation software. please excuse any grammatical, word or spelling errors. Time with Patient: Greater than 30
[2024-04-02] MEDS: ONDANSETRON 4 MG/2 ML VIAL IVP PRN (08:13)
--- NOTE | 2024-04-02 10:16 | P.PN ---
Subjective Progress Note Date: 04/02/24 Patient states she feels better. On exam vital signs appear stable. Abdomen is soft. Incision sites are clean dry intact. SHELL drain has some serous fluid. Status post laparoscopic appendectomy for acute perforated appendicitis. Patient received IV antibiotics and supportive care. Objective - Vital Signs Vital signs: Vital Signs Temp 97.3 F L 04/02/24 07:18 Pulse 106 H 04/02/24 07:18 Resp 18 04/02/24 07:18 BP 109/70 04/02/24 07:18 Pulse Ox 92 L 04/02/24 07:18 FiO2 Intake & Output 04/01/24 04/02/24 04/02/24 18:59 06:59 18:59 Intake Total 1900 Output Total 60 50 Balance -60 1850 Intake: Intake, IV Titration 1900 Amount Lactated Ringers 1,000 ml 1800 @ 150 mls/hr IV .Q6H40M [facility] Rx#:[id number] Piperacillin-Tazobactam 3 100 .375 gm In Sodium Chloride 0.9% 100 ml @ 25 mls/hr IVPB Q8H [facility] Rx#: [id number] Output: Drainage 60 50 Abdomen 60 50 Other: # Voids 1 2 - Labs CBC & Chem 7: 04/01/24 05:54 04/01/24 05:54 Labs: Abnormal Lab Results - Last 24 Hours (Table) 04/01/24 Range/Units 14:50 Urine Appearance Cloudy H (Clear) Ur Specific [place] 1.036 H (1.001-1.035) Urine Protein 1+ H (Negative) Urine Blood Trace H (Negative) Urine RBC 6 H (0-5) /hpf Urine Mucus Rare H (None) /hpf
--- NOTE | 2024-04-02 20:41 | P.PN ---
Subjective Progress Note Date: 04/02/24 Principal diagnosis: Reason for follow-up is perforated appendicitis with abscess Patient is a 64-year-old female with a past medical history significant for varicose vein current everyday smoker presenting to the hospital with abdominal pain has been diagnosed with perforated appendicitis status post laparoscopic appendectomy and drainage of the abscess. On today's evaluation that is 04/02/2024,the patient did have low-grade fever 100.1 last evening however the patient denies any fever or any chills this morning, patient is breathing comfortably on 3 L current oxygen, the patient denies chest pain shortness of breath and no significant cough, patient denies did have some nausea but no vomiting some abdominal discomfort controlled with the pain medication no bowel movement. Patient did not have any lab draw today blood cultures are pending Objective - Vital Signs Vital signs: Vital Signs Temp 97.3 F L 04/02/24 07:18 Pulse 106 H 04/02/24 07:18 Resp 18 04/02/24 07:18 BP 109/70 04/02/24 07:18 Pulse Ox 92 L 04/02/24 07:18 FiO2 Intake & Output 04/01/24 04/02/24 04/02/24 18:59 06:59 18:59 Intake Total 1900 Output Total 60 50 Balance -60 1850 Intake: Intake, IV Titration 1900 Amount Lactated Ringers 1,000 ml 1800 @ 150 mls/hr IV .Q6H40M [facility] Rx#:[id number] Piperacillin-Tazobactam 3 100 .375 gm In Sodium Chloride 0.9% 100 ml @ 25 mls/hr IVPB Q8H [facility] Rx#: [id number] Output: Drainage 60 50 Abdomen 60 50 Other: # Voids 1 2 - Exam GENERAL DESCRIPTION: An elderly female lying in bed in no distress RESPIRATORY SYSTEM: Unlabored breathing , decreased breath sounds at bases HEART: S1 S2 regular rate and rhythm , ABDOMEN: Soft , mild tenderness EXTREMITIES: No edema feet - Labs CBC & Chem 7: 04/01/24 05:54 04/01/24 05:54 Labs: Abnormal Lab Results - Last 24 Hours (Table) 04/01/24 04/01/24 Range/Units 05:54 14:50 Carbon Dioxide 19.8 L (21.6-31.8) mmol/L Calcium 7.6 L (8.7-10.3) mg/dL Total Bilirubin 2.0 H (0.3-1.2) mg/dL Total Protein 4.8 L (6.2-8.2) g/dL Albumin 3.1 L (3.8-4.9) g/dL Urine Appearance Cloudy H (Clear) Ur Specific [place] 1.036 H (1.001-1.035) Urine Protein 1+ H (Negative) Urine Blood Trace H (Negative) Urine RBC 6 H (0-5) /hpf Urine Mucus Rare H (None) /hpf Assessment and Plan (1) Acute appendicitis with perforation and localized peritonitis Current Visit: Yes Status: Acute Code(s): K35.32 - AC APPENDICITIS W PERF, LOC PERITONITIS, & GANGR, W/O ABSCS SNOMED Code(s): 246773961 (2) Leukocytosis Current Visit: Yes Status: Acute Code(s): D72.829 - ELEVATED WHITE BLOOD CELL COUNT, UNSPECIFIED SNOMED Code(s): 132960167 Plan: 1patient presented to hospital with abdominal pain nausea and vomiting and this patient has been diagnosed with a perforated appendicitis with intra-abdominal abscess status post appendectomy and drainage of the abscess will need to cover for the enteric gram-negative both aerobes and anaerobes 2-blood cultures has been obtained and results will be followed 3-patient to continue with Zosyn 3.375 g every 8 hour and monitor clinical course closely Dictation was produced using [employer] dictation software. please excuse any grammatical, word or spelling errors. Time with Patient: Less than 30
--- NOTE | 2024-04-02 23:01 | PN ---
PROGRESS NOTE DATE OF SERVICE: 04/01/2024 CHIEF COMPLAINT: Status post appendectomy. HISTORY OF PRESENT ILLNESS: This lady is doing fairly well, but she has quite a bit of discomfort. She is not vomiting. Temperature is down. PHYSICAL EXAMINATION: CHEST: Clear. CARDIAC: Normal. ABDOMEN: Reveals scant heart sounds. IMPRESSION: 1. Status post appendectomy. 2. Chronic obstructive pulmonary disease. PLAN: Continue to follow postoperatively. She is doing well. MMODL / IJN: [id number] /
--- NOTE | 2024-04-02 23:16 | PN ---
PROGRESS NOTE DATE OF SERVICE: 04/02/2024 CHIEF COMPLAINT: Status post appendectomy. HISTORY OF PRESENT ILLNESS: This lady passed a little bit of stool. She is still quite uncomfortable. Temperature has been down. PHYSICAL EXAMINATION: CHEST: Clear. CARDIAC: Normal. IMPRESSION: 1. Status post appendectomy. 2. Chronic obstructive pulmonary disease. PLAN: Slowly advance activity and diet. MMODL / IJN: [id number] /
--- NOTE | 2024-04-03 01:01 | HP ---
HISTORY AND PHYSICAL CHIEF COMPLAINT: Abdominal pain and vomiting. HISTORY OF PRESENT ILLNESS: This is first known admission for this 64-year-old otherwise healthy female. She states that the day before coming to the hospital, she started to have lower abdominal pain. Later in the day, she started to vomit and came into the hospital where she was found to have an acute appendicitis. REVIEW OF SYSTEMS: Otherwise unremarkable. Past medical history, family history, and personal and social histories are unremarkable and noncontributory. PHYSICAL EXAMINATION: VITAL SIGNS: Normal. HEAD, EARS, EYES, NOSE, MOUTH AND THROAT: Normal. NECK: Neck veins are not distended. CHEST: Clear. CARDIAC: Normal. ABDOMEN: Flat and bowel sounds are absent. EXTREMITIES: Normal. NEUROLOGICAL: She is intact. IMPRESSION: She is admitted to the hospital with diagnoses of, 1. Acute appendicitis. 2. Nicotine abuse. RECOMMENDATION: None. Thank you respectfully, ARMANI / ORTIZ: [id number] /
[2024-04-03 08:26] LABS: Basophils % (A) 0 %; Eosinophils # (A) 0.1 k/uL (0-0.7); Eosinophils % (A) 1 %; HCT 36.9 % (34.0-46.0); HGB 12.2 gm/dL (11.4-16.0); Lymphocytes % (A) 6 %; MCH 29.2 pg (25.0-35.0); MCV 88.3 fL (80.0-100.0); Mean Platelet Volume 7.8; Monocytes # (A) 0.7 k/uL (0-1.0); Monocytes % (A) 4 %; Neutrophils # (A) 14.6 k/uL (1.3-7.7); Neutrophils % (A) 87 %; Platelet Count 252 k/uL (150-450); RBC 4.18 m/uL (3.80-5.40); WBC 16.7 k/uL (3.8-10.6)
--- NOTE | 2024-04-03 12:29 | XR ---
EXAMINATION TYPE: XR abdomen 2V DATE OF EXAM: 04/03/2024 COMPARISON: NONE HISTORY: Pain TECHNIQUE: Single supine KUB image of the abdomen is obtained FINDINGS: Scattered air-fluid level seen which may reflect ileus. Basilar atelectasis and small effusions suspe cted. No convincing evidence for pneumoperitoneum. No unusual calcifications. The lung bases are clear. The osseous structures are intact. IMPRESSION: 1. Overall nonobstructive bowel gas pattern. Relate for ileus. Progress studies are advised.
[2024-04-03] MEDS: FAMOTIDINE 20 MG/2 ML VIAL IV SCH (14:03)
--- NOTE | 2024-04-03 14:23 | P.PN ---
Subjective Progress Note Date: 04/03/24 CHIEF COMPLAINT: Appendicitis HISTORY OF PRESENT ILLNESS: Patient is postop day #3 status post laparoscopic appendectomy with drainage of abscess. Patient had increased abdominal pain last night. She was reporting pain 7 out of 10. Pain currently a 2 out of 10. She denies any nausea or vomiting. She did have a loose bowel movement and flatus. She is currently NPO. She is mildly tachycardic. WBC is up from 13.8- 16.7 PHYSICAL EXAM: VITAL SIGNS: Reviewed. GENERAL: Well-developed in no acute distress. ABDOMEN: Soft. Mildly distended. Mild tenderness at incision sites. NEUROLOGIC: Alert and oriented. Cranial nerves II through XII grossly intact. ASSESSMENT: 1. Acute perforated appendicitis PLAN: -Abdominal x-ray ordered. Results reported ileus. -Advance diet to clears -Continue to monitor -Continue antibiotics -Encourage patient to ambulate -Encourage patient use incentive spirometer -DVT prophylaxis Lovenox and GI prophylaxis Pepcid Physician Computer Hardware Engineer note has been reviewed by physician. Signing provider agrees with the documented findings, assessment, and plan of care. Objective - Vital Signs Vital signs: Vital Signs Temp 97.9 F 04/03/24 07:31 Pulse 104 H 04/03/24 09:16 Resp 17 04/03/24 09:16 BP 105/65 04/03/24 07:31 Pulse Ox 93 L 04/03/24 07:31 FiO2 Intake & Output 04/02/24 04/03/24 04/03/24 18:59 06:59 18:59 Intake Total 1950 Balance 1950 Intake: Intake, IV Titration 1950 Amount Lactated Ringers 1,000 ml 1800 @ 150 mls/hr IV .Q6H40M [facility] Rx#:[id number] Piperacillin-Tazobactam 3 150 .375 gm In Sodium Chloride 0.9% 100 ml @ 25 mls/hr IVPB Q8H [facility] Rx#: [id number] Other: # Voids 4 3 # Bowel Movements 2 - Labs CBC & Chem 7: 04/03/24 08:15 04/01/24 05:54 Labs: Abnormal Lab Results - Last 24 Hours (Table) 04/03/24 Range/Units 08:15 WBC 16.7 H (3.8-10.6) k/uL Neutrophils # 14.6 H (1.3-7.7) k/uL Microbiology - Last 24 Hours (Table) 04/01/24 01:21 Blood Culture - Preliminary Blood
--- NOTE | 2024-04-03 21:04 | P.PN ---
Subjective Progress Note Date: 04/03/[address] Funes Consult reason: Medical management, status post appendectomy History of present illness: This is a 64-year-old female who was recently admitted under surgical services and follows with Dr. Funes in the outpatient setting reporting having increased abdominal pain in the lower region that progressively got worse and started vomiting and came to the hospital for further evaluation. Patient was noted to have an acute appendicitis and is status post acute appendectomy. Patient notes that her appendix was perforated. Patient is afebrile although white count is elevated again at 16 and maintained on antibiotics with infectious disease following. Repeat blood cultures pending and current cultures are negative. Patient also currently maintained on 4 L of oxygen via nasal cannula and noted to be a significant amount of IV fluids. Will decrease the rate and x-ray of the abdomen is ordered and recommend chest x-ray. Patient reports he does not wear any oxygen outpatient. Patient also noted to have mildly elevated heart rate and will obtain EKG. Per nursing staff patient has not been getting up and moving postoperatively. Will consult PT/OT therapy and encouraged to increase activity as tolerated. Diet per surgery services. Recommend to continue with bowel regimen due to pain management. Review of systems: Constitutional: No reports of fatigue, fever, or chills Cardiovascular: No reports of chest pain or palpitations Respiratory: No reports of shortness of breath or cough GI: reports of nausea, no reports of vomiting, no bowel movement today : No reports of dysuria or retention Neurovascular: reports of generalized weakness, continued abdominal pain All medications have been reviewed PHYSICAL EXAMINATION: GENERAL: The patient is alert and oriented x4, Well developed, elderly appearing, ill-appearing HEENT: Pupils are round and equally reacting to light. EOMI. no scleral icterus. No conjunctival pallor. Normocephalic, atraumatic. No pharyngeal erythema. No thyromegaly. CARDIOVASCULAR: S1 and S2 muffled PULMONARY: diminished breath sounds bilaterally with no wheezing or rhonchi noted. ABDOMEN: soft. tender on exam. . Mildly distended, normoactive bowel sounds. No palpable organomegaly. MUSCULOSKELETAL: No joint swelling or deformity. EXTREMITIES: No cyanosis, clubbing, or pedal edema. NEUROLOGICAL: Gross neurological examination did not reveal any focal deficits. Diffuse weakness SKIN: No rashes. Assessment: Abdominal pain secondary to acute appendicitis with perforation, status post appendectomy Leukocytosis, secondary to above Continued ongoing nicotine dependence Chronic obstructive pulmonary disease GI prophylaxis DVT prophylaxis Full code Plan: Recommend to continue with current medications and management per general surgery. Patient is status post appendectomy maintained on antibiotics with infectious disease following also patient's white count Is elevated at 16, abdominal x-ray ordered with concerns of possible ileus, will order chest x-ray and also recommend lowering the fluid rate to 75 cc/h Ordered incentive spirometer and encouraged to use at least 10 times every hour while awake PT/OT therapy to evaluate Repeat labs ordered for a.m. Replace electrolytes per protocol Encouraged to increase activity as tolerated We will continue to follow with general surgery during hospitalization. Thank you kindly for this consultation. The impression and plan of care has been dictated by Mirta Duke, nurse practitioner as directed. Dr. Benjamin MD I have performed a history and examination and MDM of this patient, discussed the same with the dictator, and agree with the dictator's assessment and plan as written ,documented as a scribe. Based on total visit time, I have performed more than 50% of the visit. Any additional findings or plans will be noted. Objective - Vital Signs Vital signs: Vital Signs Temp 97.9 F 04/03/24 07:31 Pulse 104 H 04/03/24 09:16 Resp 17 04/03/24 09:16 BP 105/65 04/03/24 07:31 Pulse Ox 93 L 04/03/24 07:31 FiO2 Intake & Output 04/02/24 04/03/24 04/03/24 18:59 06:59 18:59 Intake Total 1950 Balance 1950 Intake: Intake, IV Titration 1950 Amount Lactated Ringers 1,000 ml 1800 @ 150 mls/hr IV .Q6H40M [facility] Rx#:[id number] Piperacillin-Tazobactam 3 150 .375 gm In Sodium Chloride 0.9% 100 ml @ 25 mls/hr IVPB Q8H [facility] Rx#: [id number] Other: # Voids 4 3 # Bowel Movements 2 - Labs CBC & Chem 7: 04/03/24 08:15 04/01/24 05:54 Labs: Abnormal Lab Results - Last 24 Hours (Table) 04/03/24 Range/Units 08:15 WBC 16.7 H (3.8-10.6) k/uL Neutrophils # 14.6 H (1.3-7.7) k/uL Microbiology - Last 24 Hours (Table) 04/01/24 01:21 Blood Culture - Preliminary Blood
--- NOTE | 2024-04-03 21:30 | XR ---
EXAMINATION TYPE: XR chest 1V portable DATE OF EXAM: 04/03/2024 9:16 PM CLINICAL INDICATION:Female, 64 years old with history of shortness of breath COMPARISON: None TECHNIQUE: XR chest 1V portable Frontal view of the chest. FINDINGS: Patchy airspace opacities with interstitial prominence bilaterally. Small right and trace left pleura l effusions. The cardiac silhouette is mildly enlarged. No pneumothorax. No acute osseous abnormaliti es. IMPRESSION: 1. Mild cardiomegaly with pulmonary edema and bilateral pleural effusions as described concerning for congestive heart process. 2. Concomitant patchy airspace opacities may relate to underlying infectious/inflammatory process.
[2024-04-03] MEDS: FUROSEMIDE 10 MG/ML 2 ML VIAL IV ONE (21:57)
[2024-04-04 08:45] LABS: BUN/Creat Ratio 19.17 Ratio (12.00-20.00); Blood Urea Nitrogen 11.5 mg/dL (9.0-27.0); Calcium 8.1 mg/dL (8.7-10.3); Carbon Dioxide 25.9 mmol/L (21.6-31.8); Chloride 101 mmol/L (96-109); Glucose 106 mg/dL (70-110); Magnesium 1.5 mg/dL (1.5-2.4); Potassium 3.1 mmol/L (3.5-5.5); Sodium 137 mmol/L (135-145)
[2024-04-04 08:53] LABS: Basophils # (A) 0.09 X 10*3/uL (0.00-0.10); Basophils % (A) 0.5 %; Eosinophils # (A) 0.08 X 10*3/uL (0.04-0.35); Eosinophils % (A) 0.5 %; HCT 34.7 % (37.2-46.3); HGB 11.7 g/dL (12.0-15.0); Lymphocytes # (A) 1.49 X 10*3/uL (0.90-5.00); Lymphocytes % (A) 8.6 %; MCH 28.7 pg (27.0-32.0); MCHC 33.7 g/dL (32.0-37.0); MCV 85.3 FL (80.0-97.0); Mean Platelet Volume 10.5 FL (9.5-12.2); Monocytes # (A) 1.49 X 10*3/uL (0.20-1.00); Monocytes % (A) 8.6 %; NRBC Per 100 WBC 0 X 10*3/uL (0.00-0.01); Neutrophils # (A) 13.82 X 10*3/uL (1.80-7.70); Neutrophils % (A) 80.2 %; Platelet Count 234 X 10*3/uL (140-440); RBC 4.07 X 10*6/uL (4.10-5.20); RDW 14.1 % (11.5-14.5); WBC 17.25 X 10*3/uL (4.50-10.00)
--- NOTE | 2024-04-04 12:47 | P.PN ---
Subjective Progress Note Date: 04/04/24 CHIEF COMPLAINT: Appendicitis HISTORY OF PRESENT ILLNESS: Patient is postop day #4 status post laparoscopic appendectomy with drainage of abscess. Patient does complain of abdominal pain. But reports that it is starting to improve. Pain medication is helping. She denies any nausea or vomiting. No bowel movement or flatus. She did ambulate in the hallway yesterday. Afebrile. Mildly tachycardic. Heart rate this morning 99 WBC is up from 16.7-17.25. Potassium 3.1. Chest x-ray mild cardiomegaly with pulmonary edema bilateral pleural effusions patchy airspace opacities may relate to underlying infectious/inflammatory process. [place] service did order Lasix yesterday. Patient reports that she is having some pressure and discomfort when urinating. SHELL drain serosanguineous and slightly c loudy fluid PHYSICAL EXAM: VITAL SIGNS: Reviewed. GENERAL: Well-developed in no acute distress. ABDOMEN: Soft. Mildly distended. Mild tenderness at incision sites. NEUROLOGIC: Alert and oriented. Cranial nerves II through XII grossly intact. ASSESSMENT: 1. Acute perforated appendicitis 2. Postoperative ileus can be an expected complication after surgery PLAN: -Continue clear liquid diet -Encourage patient to ambulate -Consult physical therapy -Encourage patient to use incentive spirometer -Check postvoid residual to monitor for any urinary retention -Continue antibiotics -DVT prophylaxis Lovenox and GI prophylaxis Pepcid Physician Tax Adjuster note has been reviewed by physician. Signing provider agrees with the documented findings, assessment, and plan of care. Objective - Vital Signs Vital signs: Vital Signs Temp 97.8 F 04/04/24 07:27 Pulse 99 04/04/24 07:27 Resp 18 04/04/24 09:45 BP 97/65 04/04/24 07:27 Pulse Ox 91 L 04/04/24 07:27 FiO2 Intake & Output 04/03/24 04/04/24 04/04/24 18:59 06:59 18:59 Output Total 600 1 Balance -600 -1 Output: Urine 600 1 Other: Voiding Method Toilet Toilet # Voids 3 1 - Labs CBC & Chem 7: 04/04/24 05:28 04/04/24 05:28 Labs: Abnormal Lab Results - Last 24 Hours (Table) 04/04/24 04/04/24 Range/Units 05:28 05:28 WBC 17.25 H (4.50-10.00) X 10*3/uL RBC 4.07 L (4.10-5.20) X 10*6/uL Hgb 11.7 L (12.0-15.0) g/dL Hct 34.7 L (37.2-46.3) % Immature Gran # 0.28 H (0.00-0.04) X 10*3/uL Neutrophils # 13.82 H (1.80-7.70) X 10*3/uL Monocytes # 1.49 H (0.20-1.00) X 10*3/uL Potassium 3.1 L (3.5-5.5) mmol/L Calcium 8.1 L (8.7-10.3) mg/dL Microbiology - Last 24 Hours (Table) 04/02/24 07:48 Blood Culture - Preliminary Blood 04/01/24 01:21 Blood Culture - Preliminary Blood
[2024-04-04] MEDS: HYDROcodone/APAP 5-325MG 1 EACH TAB PO PRN (14:01)
[2024-04-04] MEDS: FUROSEMIDE 10 MG/ML 2 ML VIAL IV SCH (14:58)
[2024-04-04 16:36] LABS: Appearance,Urine Clear (Clear); Bilirubin,Urine Negative (Negative); Blood,Urine Trace (Negative); Color,Urine Yellow; Glucose,Urine (UA) Negative (Negative); Ketones,Urine Negative (Negative); Leukocyte Esterase,Urine Negative (Negative); Mucus,Urine Rare /hpf; Nitrite,Urine Negative (Negative); PH, Urine 5.5 (5.0-8.0); Protein,Urine Negative (Negative); RBC,Urine 3 /hpf (0-5); Specific Gravity,Urine 1.013 (1.001-1.035); Squamous Epithelial Cell,Urine 1 /hpf (0-4); Urobilinogen,Urine <2.0 mg/dL (<2.0); WBC,Urine <1 /hpf (0-5)
--- NOTE | 2024-04-05 05:01 | P.PN ---
Subjective Progress Note Date: 04/04/[address] Funes Consult reason: Medical management, status post appendectomy History of present illness: This is a 64-year-old female who was recently admitted under surgical services and follows with Dr. Funes in the outpatient setting reporting having increased abdominal pain in the lower region that progressively got worse and started vomiting and came to the hospital for further evaluation. Patient was noted to have an acute appendicitis and is status post acute appendectomy. Patient notes that her appendix was perforated. Patient is afebrile although white count is elevated again at 16 and maintained on antibiotics with infectious disease following. Repeat blood cultures pending and current cultures are negative. Patient also currently maintained on 4 L of oxygen via nasal cannula and noted to be a significant amount of IV fluids. Will decrease the rate and x-ray of the abdomen is ordered and recommend chest x-ray. Patient reports he does not wear any oxygen outpatient. Patient also noted to have mildly elevated heart rate and will obtain EKG. Per nursing staff patient has not been getting up and moving postoperatively. Will consult PT/OT therapy and encouraged to increase activity as tolerated. Diet per surgery services. Recommend to continue with bowel regimen due to pain management. 04/04/2024 Patient is seen and evaluated in follow-up today currently sitting up in the chair reports some continued abdominal discomfort also reports a pressure and pain sensation when voiding. Will obtain a repeat urinalysis and also chest x- ray shows some mild volume overload recommend titrating the fluids down and will give IV Lasix and follow-up on repeat labs. Potassium slightly low at 3.1 and magnesium, 1.5 and being replaced per protocol. Patient continues on clear liquid diet per general surgery as patient was noted to have concerns of a postoperative ileus. Patient is not passing gas and has not had a bowel movement. Encourage the patient to get up and walk frequently around the halls. Review of systems: Constitutional: No reports of fatigue, fever, or chills Cardiovascular: No reports of chest pain or palpitations Respiratory: No reports of shortness of breath or cough GI: reports of nausea, no reports of vomiting, no bowel movement today : reports of pain with urination Neurovascular: reports of generalized weakness, continued abdominal pain All medications have been reviewed PHYSICAL EXAMINATION: GENERAL: The patient is alert and oriented x4, Well developed, elderly appearing, ill-appearing HEENT: Pupils are round and equally reacting to light. EOMI. no scleral icterus. No conjunctival pallor. Normocephalic, atraumatic. No pharyngeal erythema. No thyromegaly. CARDIOVASCULAR: S1 and S2 muffled PULMONARY: diminished breath sounds bilaterally with no wheezing or rhonchi noted. ABDOMEN: soft. tender on exam. . Mildly distended, normoactive bowel sounds. No palpable organomegaly. MUSCULOSKELETAL: No joint swelling or deformity. EXTREMITIES: No cyanosis, clubbing, or pedal edema. NEUROLOGICAL: Gross neurological examination did not reveal any focal deficits. Diffuse weakness SKIN: No rashes. Assessment: Abdominal pain secondary to acute appendicitis with perforation, status post appendectomy Leukocytosis, secondary to above Postoperative ileus Continued ongoing nicotine dependence Chronic obstructive pulmonary disease, not in exacerbation Acute hypoxic respiratory failure, secondary to volume overload, currently maintained on 2 L and does not wear oxygen outpatient GI prophylaxis DVT prophylaxis Full code Plan: Recommend to continue with current medications and management per general surgery. Patient is status post appendectomy maintained on antibiotics with infectious disease following also patient's white count remains elevated. Abdominal x-ray was ordered with concerns of possible ileus, chest x-ray with concerns of volume overload Will give IV Lasix and follow-up on repeat labs. Magnesium and potassium mildly low and will replace per protocol Patient is reporting some burning with pain during urination and pressure. Will obtain a urinalysis. Continue to encourage incentive spirometer use at least 10 times every hour while awake, patient needs reencouragement and reinforcement frequently PT/OT therapy to evaluate as patient may need ECF on discharge for continued strength and mobility Encouraged to increase activity as tolerated with frequent walking in the halls Repeat labs ordered for a.m. Replace electrolytes per protocol We will continue to follow with general surgery during hospitalization. Thank you kindly for this consultation. The impression and plan of care has been dictated by Mirta Duke, nurse practitioner as directed. Dr. Benjamin MD I have performed a history and examination and MDM of this patient, discussed the same with the dictator, and agree with the dictator's assessment and plan as written ,documented as a scribe. Based on total visit time, I have performed more than 50% of the visit. Any additional findings or plans will be noted. Objective - Vital Signs Vital signs: Vital Signs Temp 97.9 F 04/04/24 12:14 Pulse 76 07/23/24 12:14 Resp 16 04/04/24 12:14 BP 101/66 04/04/24 12:14 Pulse Ox 94 L 04/04/24 12:14 FiO2 Intake & Output 04/03/24 04/04/24 04/04/24 18:59 06:59 18:59 Output Total 600 1 Balance -600 -1 Output: Urine 600 1 Other: Voiding Method Toilet Toilet # Voids 3 1 - Labs CBC & Chem 7: 04/04/24 05:28 04/04/24 05:28 Labs: Abnormal Lab Results - Last 24 Hours (Table) 04/04/24 04/04/24 Range/Units 05:28 05:28 WBC 17.25 H (4.50-10.00) X 10*3/uL RBC 4.07 L (4.10-5.20) X 10*6/uL Hgb 11.7 L (12.0-15.0) g/dL Hct 34.7 L (37.2-46.3) % Immature Gran # 0.28 H (0.00-0.04) X 10*3/uL Neutrophils # 13.82 H (1.80-7.70) X 10*3/uL Monocytes # 1.49 H (0.20-1.00) X 10*3/uL Potassium 3.1 L (3.5-5.5) mmol/L Calcium 8.1 L (8.7-10.3) mg/dL Microbiology - Last 24 Hours (Table) 04/02/24 07:48 Blood Culture - Preliminary Blood 04/01/24 01:21 Blood Culture - Preliminary Blood
[2024-04-05] MEDS: ENOXAPARIN 40 MG/0.4 ML SYRINGE SQ SCH (08:45)
[2024-04-05 09:03] LABS: Magnesium 1.4 mg/dL (1.5-2.4)
[2024-04-05 09:08] LABS: Basophils # (A) 0.08 X 10*3/uL (0.00-0.10); Basophils % (A) 0.5 %; Eosinophils # (A) 0.09 X 10*3/uL (0.04-0.35); Eosinophils % (A) 0.6 %; HCT 36.1 % (37.2-46.3); Lymphocytes # (A) 2.42 X 10*3/uL (0.90-5.00); Lymphocytes % (A) 15.5 %; MCHC 33.2 g/dL (32.0-37.0); MCV 84.1 FL (80.0-97.0); Mean Platelet Volume 10.8 FL (9.5-12.2); Monocytes # (A) 1.53 X 10*3/uL (0.20-1.00); Monocytes % (A) 9.8 %; NRBC Per 100 WBC 0 X 10*3/uL (0.00-0.01); Neutrophils # (A) 11.18 X 10*3/uL (1.80-7.70); Neutrophils % (A) 71.4 %; Platelet Count 272 X 10*3/uL (140-440); RBC 4.29 X 10*6/uL (4.10-5.20); RDW 14.4 % (11.5-14.5); WBC 15.65 X 10*3/uL (4.50-10.00)
[2024-04-05] MEDS ORDERED: Magnesium Replacement Protocol 1 EACH MISC MISCELLANE PRN (09:19)
[2024-04-05 09:34] LABS: ALT 17 U/L (8-44); AST 22 U/L (13-35); Albumin/Globulin Ratio 1.43 Ratio (1.60-3.17); Alkaline Phosphatase 189 U/L (41-126); Blood Urea Nitrogen 9.6 mg/dL (9.0-27.0); Calcium 8.3 mg/dL (8.7-10.3); Carbon Dioxide 28.1 mmol/L (21.6-31.8); Chloride 99 mmol/L (96-109); Globulin 2.1 g/dL (1.6-3.3); Glucose 119 mg/dL (70-110); Potassium 3.2 mmol/L (3.5-5.5); Sodium 139 mmol/L (135-145); Total Bilirubin 1.2 mg/dL (0.3-1.2); Total Protein 5.1 g/dL (6.2-8.2)
[2024-04-05] MEDS ORDERED: Potassium Replacement Protocol 1 EACH MISC MISCELLANE PRN (09:55)
[2024-04-05] MEDS: POTASSIUM CHLORIDE ER 20 MEQ TAB.ER PO SCH (10:04)
[2024-04-05] MEDS: MAGNESIUM SULFATE-D5W PMX 1 GM in DEXTROSE/WATER 1 100ML.BAG IVPB SCH (10:05)
[2024-04-05] MEDS: METOCLOPRAMIDE 5 MG/ML 2 ML VIAL IVP SCH (11:12)
[2024-04-05] MEDS: bisacodyL 10 MG SUPP RECTAL STA (13:09)
--- NOTE | 2024-04-05 13:45 | P.PN ---
Subjective Progress Note Date: 04/05/24 CHIEF COMPLAINT: Appendicitis HISTORY OF PRESENT ILLNESS: Patient is postop day #5 status post laparoscopic appendectomy with drainage of abscess. Patient continues to complain of same abdominal pain she denies any bowel activity. Denies any nausea or vomiting. Decreased appetite. SHELL drain 10 mL purulent output. Afebrile. Tachycardia resolved. WBC is down from 17-15.65 Hgb 12.0 platelets 272 potassium is 3 point magnesium 1.4. Medicine service has started patient on IV Lasix for fluid overload. Patient had no evidence of urinary retention on postvoid residual. PHYSICAL EXAM: VITAL SIGNS: Reviewed. GENERAL: Well-developed in no acute distress. ABDOMEN: Soft. Mildly distended. Mild tenderness at incision sites. NEUROLOGIC: Alert and oriented. Cranial nerves II through XII grossly intact. ASSESSMENT: 1. Acute perforated appendicitis 2. Postoperative ileus can be an expected complication after surgery 4. Hypokalemia and hypomagnesemia. Patient receiving supplement per medicine service PLAN: -Add Reglan for ileus -Add Dulcolax suppository -Add Ensure for protein supplement -Continue clear liquid diet -Encourage patient to ambulate -Consult physical therapy -Encourage patient to use incentive spirometer -Continue antibiotics -DVT prophylaxis Lovenox and GI prophylaxis Pepcid Physician Grocery Sacker note has been reviewed by physician. Signing provider agrees with the documented findings, assessment, and plan of care. Objective - Vital Signs Vital signs: Vital Signs Temp 98.0 F 04/05/24 06:56 Pulse 94 04/05/24 06:56 Resp 17 04/05/24 06:56 BP 104/69 04/05/24 06:56 Pulse Ox 94 L 04/05/24 08:04 FiO2 Intake & Output 04/04/24 04/05/24 04/05/24 18:59 06:59 18:59 Output Total 95 10 Balance -95 -10 Output: Drainage 10 Abdomen 10 Urine 1 Post Void Residual 94 Other: Voiding Method Toilet Toilet Toilet # Voids 5 2 - Labs CBC & Chem 7: 04/05/24 04:48 04/05/24 04:48 Labs: Abnormal Lab Results - Last 24 Hours (Table) 04/04/24 04/05/24 04/05/24 Range/Units 15:41 04:48 04:48 WBC 15.65 H (4.50-10.00) X 10*3/uL Hct 36.1 L (37.2-46.3) % Immature Gran # 0.35 H (0.00-0.04) X 10*3/uL Neutrophils # 11.18 H (1.80-7.70) X 10*3/uL Monocytes # 1.53 H (0.20-1.00) X 10*3/uL Potassium 3.2 L (3.5-5.5) mmol/L Glucose 119 H (70-110) mg/dL Calcium 8.3 L (8.7-10.3) mg/dL Magnesium 1.4 L (1.5-2.4) mg/dL Alkaline Phosphatase 189 H (41-126) U/L Total Protein 5.1 L (6.2-8.2) g/dL Albumin 3.0 L (3.8-4.9) g/dL Albumin/Globulin Ratio 1.43 L (1.60-3.17) Ratio Urine Blood Trace H (Negative) Urine Mucus Rare H (None) /hpf Microbiology - Last 24 Hours (Table) 04/02/24 07:48 Blood Culture - Preliminary Blood 04/01/24 01:21 Blood Culture - Preliminary Blood
--- NOTE | 2024-04-06 04:48 | P.PN ---
Subjective Progress Note Date: 04/05/[address] Funes Consult reason: Medical management, status post appendectomy History of present illness: This is a 64-year-old female who was recently admitted under surgical services and follows with Dr. Funes in the outpatient setting reporting having increased abdominal pain in the lower region that progressively got worse and started vomiting and came to the hospital for further evaluation. Patient was noted to have an acute appendicitis and is status post acute appendectomy. Patient notes that her appendix was perforated. Patient is afebrile although white count is elevated again at 16 and maintained on antibiotics with infectious disease following. Repeat blood cultures pending and current cultures are negative. Patient also currently maintained on 4 L of oxygen via nasal cannula and noted to be a significant amount of IV fluids. Will decrease the rate and x-ray of the abdomen is ordered and recommend chest x-ray. Patient reports he does not wear any oxygen outpatient. Patient also noted to have mildly elevated heart rate and will obtain EKG. Per nursing staff patient has not been getting up and moving postoperatively. Will consult PT/OT therapy and encouraged to increase activity as tolerated. Diet per surgery services. Recommend to continue with bowel regimen due to pain management. 04/04/2024 Patient is seen and evaluated in follow-up today currently sitting up in the chair reports some continued abdominal discomfort also reports a pressure and pain sensation when voiding. Will obtain a repeat urinalysis and also chest x- ray shows some mild volume overload recommend titrating the fluids down and will give IV Lasix and follow-up on repeat labs. Potassium slightly low at 3.1 and magnesium, 1.5 and being replaced per protocol. Patient continues on clear liquid diet per general surgery as patient was noted to have concerns of a postoperative ileus. Patient is not passing gas and has not had a bowel movement. Encourage the patient to get up and walk frequently around the halls. 04/05/2024 Patient seen in follow-up this morning reports to feeling somewhat improved. Patient is voiding but denies any passing of gas or bowel movement. Patient continues on clear liquids with general surgery following and has been instructed to increase activity as tolerated. Continue incentive spirometer use. Patient is currently weaning FiO2 as tolerated and is on 2 L. Patient does not wear oxygen outpatient. Patient is afebrile and white count is trending down. Infectious disease following and patient is maintained on antibiotics. Review of systems: Constitutional: No reports of fatigue, fever, or chills Cardiovascular: No reports of chest pain or palpitations Respiratory: No reports of shortness of breath or cough GI: reports of nausea, no reports of vomiting, no bowel movement today : reports of pain with urination although improved Neurovascular: reports of generalized weakness, continued abdominal pain All medications have been reviewed PHYSICAL EXAMINATION: GENERAL: The patient is alert and oriented x4, Well developed, elderly appearing, ill-appearing HEENT: Pupils are round and equally reacting to light. EOMI. no scleral icterus. No conjunctival pallor. Normocephalic, atraumatic. No pharyngeal erythema. No thyromegaly. CARDIOVASCULAR: S1 and S2 muffled PULMONARY: diminished breath sounds bilaterally with no wheezing or rhonchi noted. ABDOMEN: soft. tender on exam. . Mildly distended, hypoactive bowel sounds. No palpable organomegaly. MUSCULOSKELETAL: No joint swelling or deformity. EXTREMITIES: No cyanosis, clubbing, or pedal edema. NEUROLOGICAL: Gross neurological examination did not reveal any focal deficits. Diffuse weakness SKIN: No rashes. Assessment: Abdominal pain secondary to acute appendicitis with perforation, status post appendectomy Leukocytosis, secondary to above Postoperative ileus Continued ongoing nicotine dependence Chronic obstructive pulmonary disease, not in exacerbation Acute hypoxic respiratory failure, secondary to volume overload, currently anneliese ntained on 2 L and does not wear oxygen outpatient Hypomagnesemia Hypokalemia GI prophylaxis DVT prophylaxis Full code Plan: Recommend to continue with current medications and management per general surgery. Patient is status post appendectomy maintained on antibiotics with infectious disease following also patient's white count remains elevated. Abdominal x-ray was ordered with concerns of possible ileus Magnesium and potassium mildly low and will replace per protocol. Repeat labs ordered for a.m. Patient is reporting some burning with pain during urination and pressure. Urinalysis was negative patient reports the symptoms have resolved Continue to encourage incentive spirometer use at least 10 times every hour while awake, patient needs reencouragement and reinforcement frequently PT/OT therapy to evaluate as patient may need ECF on discharge for continued strength and mobility Encouraged to increase activity as tolerated with frequent walking in the halls Repeat labs ordered for a.m. Replace electrolytes per protocol We will continue to follow with general surgery during hospitalization. Thank you kindly for this consultation. The impression and plan of care has been dictated by Mirta Duke, nurse practitioner as directed. Dr. Benjamin MD I have performed a history and examination and MDM of this patient, discussed the same with the dictator, and agree with the dictator's assessment and plan as written ,documented as a scribe. Based on total visit time, I have performed more than 50% of the visit. Any additional findings or plans will be noted. Objective - Vital Signs Vital signs: Vital Signs Temp 98.0 F 04/05/24 06:56 Pulse 94 04/05/24 06:56 Resp 17 04/05/24 06:56 BP 104/69 04/05/24 06:56 Pulse Ox 94 L 04/05/24 08:04 FiO2 Intake & Output 04/04/24 04/05/24 04/05/24 18:59 06:59 18:59 Output Total 95 10 Balance -95 -10 Output: Drainage 10 Abdomen 10 Urine 1 Post Void Residual 94 Other: Voiding Method Toilet Toilet # Voids 5 2 - Labs CBC & Chem 7: 04/05/24 04:48 04/05/24 04:48 Labs: Abnormal Lab Results - Last 24 Hours (Table) 04/04/24 04/05/24 04/05/24 Range/Units 15:41 04:48 04:48 WBC 15.65 H (4.50-10.00) X 10*3/uL Hct 36.1 L (37.2-46.3) % Immature Gran # 0.35 H (0.00-0.04) X 10*3/uL Neutrophils # 11.18 H (1.80-7.70) X 10*3/uL Monocytes # 1.53 H (0.20-1.00) X 10*3/uL Magnesium 1.4 L (1.5-2.4) mg/dL Urine Blood Trace H (Negative) Urine Mucus Rare H (None) /hpf Microbiology - Last 24 Hours (Table) 04/02/24 07:48 Blood Culture - Preliminary Blood 04/01/24 01:21 Blood Culture - Preliminary Blood
[2024-04-06 08:38] LABS: BUN/Creat Ratio 13.83 Ratio (12.00-20.00); Blood Urea Nitrogen 8.3 mg/dL (9.0-27.0); Calcium 8.3 mg/dL (8.7-10.3); Carbon Dioxide 29.1 mmol/L (21.6-31.8); Chloride 99 mmol/L (96-109); Glucose 118 mg/dL (70-110); Magnesium 1.7 mg/dL (1.5-2.4); Potassium 3.4 mmol/L (3.5-5.5); Sodium 139 mmol/L (135-145)
[2024-04-06 08:39] LABS: HCT 33.6 % (37.2-46.3); HGB 11.4 g/dL (12.0-15.0); MCH 28.6 pg (27.0-32.0); MCHC 33.9 g/dL (32.0-37.0); MCV 84.2 FL (80.0-97.0); Mean Platelet Volume 10.1 FL (9.5-12.2); NRBC Per 100 WBC 0 X 10*3/uL (0.00-0.01); Platelet Count 312 X 10*3/uL (140-440); RBC 3.99 X 10*6/uL (4.10-5.20); RDW 14.2 % (11.5-14.5)
[2024-04-06 09:30] LABS: Basophils # (A) 0.07 X 10*3/uL (0.00-0.10); Basophils % (A) 0.6 %; Eosinophils # (A) 0.12 X 10*3/uL (0.04-0.35); Lymphocytes # (A) 1.96 X 10*3/uL (0.90-5.00); Lymphocytes % (A) 16.2 %; Monocytes # (A) 1.32 X 10*3/uL (0.20-1.00); Monocytes % (A) 10.9 %; Neutrophils # (A) 8.05 X 10*3/uL (1.80-7.70); Neutrophils % (A) 66.5 %; RBC Morphology Normal (Normal)
--- NOTE | 2024-04-06 09:48 | P.PN ---
Subjective Progress Note Date: 04/05/24 Principal diagnosis: Reason for follow-up is perforated appendicitis with abscess Patient is a 64-year-old female with a past medical history significant for varicose vein current everyday smoker presenting to the hospital with abdominal pain has been diagnosed with perforated appendicitis status post laparoscopic appendectomy and drainage of the abscess. On today's evaluation that is 04/05/2024, Patient is afebrile patient is currently on 1 L nasal cannula oxygen and denies having any shortness of breath, the patient denies any chest pain or cough, the patient did have some nausea but no vomiting still complaining of abdominal discomfort about the same and did not have any bowel movement not passing any gas. The patient white count is slightly down to 15.65 creatinine 0.6 UA has been negative Objective - Vital Signs Vital signs: Vital Signs Temp 98.0 F 04/05/24 06:56 Pulse 94 04/05/24 06:56 Resp 17 04/05/24 06:56 BP 104/69 04/05/24 06:56 Pulse Ox 94 L 04/05/24 08:04 FiO2 Intake & Output 04/04/24 04/05/24 04/05/24 18:59 06:59 18:59 Output Total 95 10 Balance -95 -10 Output: Drainage 10 Abdomen 10 Urine 1 Post Void Residual 94 Other: Voiding Method Toilet Toilet # Voids 5 2 - Exam GENERAL DESCRIPTION: An elderly female lying in bed in no distress RESPIRATORY SYSTEM: Unlabored breathing , decreased breath sounds at bases HEART: S1 S2 regular rate and rhythm , ABDOMEN: Soft , mild tenderness EXTREMITIES: No edema feet - Labs CBC & Chem 7: 04/06/24 05:58 04/06/24 05:58 Labs: Abnormal Lab Results - Last 24 Hours (Table) 04/04/24 04/05/24 04/05/24 Range/Units 15:41 04:48 04:48 WBC 15.65 H (4.50-10.00) X 10*3/uL Hct 36.1 L (37.2-46.3) % Immature Gran # 0.35 H (0.00-0.04) X 10*3/uL Neutrophils # 11.18 H (1.80-7.70) X 10*3/uL Monocytes # 1.53 H (0.20-1.00) X 10*3/uL Potassium 3.2 L (3.5-5.5) mmol/L Glucose 119 H (70-110) mg/dL Calcium 8.3 L (8.7-10.3) mg/dL Magnesium 1.4 L (1.5-2.4) mg/dL Alkaline Phosphatase 189 H (41-126) U/L Total Protein 5.1 L (6.2-8.2) g/dL Albumin 3.0 L (3.8-4.9) g/dL Albumin/Globulin Ratio 1.43 L (1.60-3.17) Ratio Urine Blood Trace H (Negative) Urine Mucus Rare H (None) /hpf Microbiology - Last 24 Hours (Table) 04/02/24 07:48 Blood Culture - Preliminary Blood 04/01/24 01:21 Blood Culture - Preliminary Blood Assessment and Plan (1) Acute appendicitis with perforation and localized peritonitis Current Visit: Yes Status: Acute Code(s): K35.32 - AC APPENDICITIS W PERF, LOC PERITONITIS, & GANGR, W/O ABSCS SNOMED Code(s): 050809828 (2) Leukocytosis Current Visit: Yes Status: Acute Code(s): D72.829 - ELEVATED WHITE BLOOD CELL COUNT, UNSPECIFIED SNOMED Code(s): 140341504 Plan: 1patient presented to hospital with abdominal pain nausea and vomiting and this patient has been diagnosed with a perforated appendicitis with intra-abdominal abscess status post appendectomy and drainage of the abscess will need to cover for the enteric gram-negative both aerobes and anaerobes 2-blood cultures has been negative so far no local cultures 3-patient white count is down to 15,000 today still did not have any bowel movement laxative has been mandated by surgery will see response and for now continue with Zosyn 3.375 g every 8 hour Dictation was produced using [employer] dictation software. please excuse any grammatical, word or spelling errors. Time with Patient: Less than 30
[2024-04-06] MEDS ORDERED: Potassium Replacement Protocol 1 EACH MISC MISCELLANE PRN (09:53)
[2024-04-06] MEDS ORDERED: Magnesium Replacement Protocol 1 EACH MISC MISCELLANE PRN (09:53)
[2024-04-06] MEDS: DOCUSATE 100 MG CAP PO SCH (10:45)
[2024-04-06] MEDS: POTASSIUM CHLORIDE ER 20 MEQ TAB.ER PO SCH (10:45)
[2024-04-06] MEDS: bisacodyL 10 MG SUPP RECTAL STA (10:45)
[2024-04-06] MEDS: MAGNESIUM SULFATE-D5W PMX 1 GM in DEXTROSE/WATER 1 100ML.BAG IVPB ONE (10:46)
--- NOTE | 2024-04-06 11:05 | P.PN ---
Subjective Progress Note Date: 04/06/24 CHIEF COMPLAINT: Appendicitis HISTORY OF PRESENT ILLNESS: Patient is postop day #6 status post laparoscopic appendectomy with drainage of abscess. Patient sitting up at bedside chair. She did have 2 small BMs after the Dulcolax suppository. Patient still reports abdominal pain and bloating. She reports that it is improving. Denies any nausea or vomiting. She has been ambulating in the hallway. Afebrile. WBC is down from 15-12 Hgb 11.4 platelets 312 potassium is 3.4 magnesium 1.7. SHELL drain 10 mL purulent drainage PHYSICAL EXAM: VITAL SIGNS: Reviewed. GENERAL: Well-developed in no acute distress. ABDOMEN: Soft. distended. Mild tenderness at incision sites. SHELL drain with purulent drainage NEUROLOGIC: Alert and oriented. Cranial nerves II through XII grossly intact. ASSESSMENT: 1. Acute perforated appendicitis 2. Postoperative ileus can be an expected complication after surgery 4. Hypokalemia and hypomagnesemia PLAN: -Give another Dulcolax suppository today add Colace. Continue Reglan for ileus -Continue Ensure for protein supplement -Continue clear liquid diet -Encourage patient to ambulate -Encourage patient to use incentive spirometer -Continue antibiotics -DVT prophylaxis Lovenox and GI prophylaxis Pepcid Physician Wire Repairer note has been reviewed by physician. Signing provider agrees with the documented findings, assessment, and plan of care. Objective - Vital Signs Vital signs: Vital Signs Temp 97.5 F L 04/06/24 07:01 Pulse 82 04/06/24 07:01 Resp 18 04/06/24 07:01 BP 106/71 04/06/24 07:01 Pulse Ox 98 04/06/24 08:10 FiO2 Intake & Output 04/05/24 04/06/24 04/06/24 18:59 06:59 18:59 Other: Voiding Method Toilet Toilet # Voids 3 2 - Labs CBC & Chem 7: 04/06/24 05:58 04/06/24 05:58 Labs: Abnormal Lab Results - Last 24 Hours (Table) 04/06/24 04/06/24 Range/Units 05:58 05:58 WBC 12.10 H (4.50-10.00) X 10*3/uL RBC 3.99 L (4.10-5.20) X 10*6/uL Hgb 11.4 L (12.0-15.0) g/dL Hct 33.6 L (37.2-46.3) % Immature Gran # 0.58 H (0.00-0.04) X 10*3/uL Neutrophils # 8.05 H (1.80-7.70) X 10*3/uL Monocytes # 1.32 H (0.20-1.00) X 10*3/uL Potassium 3.4 L (3.5-5.5) mmol/L BUN 8.3 L (9.0-27.0) mg/dL Glucose 118 H (70-110) mg/dL Calcium 8.3 L (8.7-10.3) mg/dL Microbiology - Last 24 Hours (Table) 04/04/24 15:11 Blood Culture - Preliminary Blood 04/02/24 07:48 Blood Culture - Preliminary Blood
--- NOTE | 2024-04-06 15:41 | P.PN ---
Subjective Progress Note Date: 04/06/24 Principal diagnosis: Reason for follow-up is perforated appendicitis with abscess Patient is a 64-year-old female with a past medical history significant for varicose vein current everyday smoker presenting to the hospital with abdominal pain has been diagnosed with perforated appendicitis status post laparoscopic appendectomy and drainage of the abscess. On today's evaluation that is 04/06/2024, patient has been afebrile, patient is breathing comfortably and is currently on 1 L nasal cannula oxygen patient denies having any significant cough no chest pain shortness of breath, patient did have some nausea improved with Zofran regarding some abdominal pain contr olled with the pain medication and denies any bowel movement not passing any gas. The patient white count is down to 12.10, creatinine 0.6 blood culture has been negative Objective - Vital Signs Vital signs: Vital Signs Temp 97.6 F 04/06/24 13:53 Pulse 100 04/06/24 13:53 Resp 18 04/06/24 13:53 BP 101/65 04/06/24 13:53 Pulse Ox 94 L 04/06/24 13:53 FiO2 Intake & Output 04/05/24 04/06/24 04/06/24 18:59 06:59 18:59 Other: Voiding Method Toilet Toilet # Voids 3 2 - Exam GENERAL DESCRIPTION: An elderly female lying in bed in no distress RESPIRATORY SYSTEM: Unlabored breathing , decreased breath sounds at bases HEART: S1 S2 regular rate and rhythm , ABDOMEN: Soft , mild tenderness EXTREMITIES: No edema feet - Labs CBC & Chem 7: 04/06/24 05:58 04/06/24 05:58 Labs: Abnormal Lab Results - Last 24 Hours (Table) 04/06/24 04/06/24 Range/Units 05:58 05:58 WBC 12.10 H (4.50-10.00) X 10*3/uL RBC 3.99 L (4.10-5.20) X 10*6/uL Hgb 11.4 L (12.0-15.0) g/dL Hct 33.6 L (37.2-46.3) % Immature Gran # 0.58 H (0.00-0.04) X 10*3/uL Neutrophils # 8.05 H (1.80-7.70) X 10*3/uL Monocytes # 1.32 H (0.20-1.00) X 10*3/uL Potassium 3.4 L (3.5-5.5) mmol/L BUN 8.3 L (9.0-27.0) mg/dL Glucose 118 H (70-110) mg/dL Calcium 8.3 L (8.7-10.3) mg/dL Microbiology - Last 24 Hours (Table) 04/04/24 15:11 Blood Culture - Preliminary Blood 04/02/24 07:48 Blood Culture - Preliminary Blood Assessment and Plan (1) Acute appendicitis with perforation and localized peritonitis Current Visit: Yes Status: Acute Code(s): K35.32 - AC APPENDICITIS W PERF, LOC PERITONITIS, & GANGR, W/O ABSCS SNOMED Code(s): 920890385 (2) Leukocytosis Current Visit: Yes Status: Acute Code(s): D72.829 - ELEVATED WHITE BLOOD CELL COUNT, UNSPECIFIED SNOMED Code(s): 985678036 Plan: 1patient presented to hospital with abdominal pain nausea and vomiting and this patient has been diagnosed with a perforated appendicitis with intra-abdominal abscess status post appendectomy and drainage of the abscess will need to cover for the enteric gram-negative both aerobes and anaerobes 2-blood cultures has been negative so far no local cultures 3-patient white count is down to 12,000 today seems to be dealing with an ileu s/constipation surgery is following the patient closely will continue Zosyn while inpatient Dictation was produced using [employer] dictation software. please excuse any grammatical, word or spelling errors. Time with Patient: Less than 30
--- NOTE | 2024-04-06 16:12 | P.PN ---
Subjective Progress Note Date: 04/06/[address] Funes Consult reason: Medical management, status post appendectomy History of present illness: This is a 64-year-old female who was recently admitted under surgical services and follows with Dr. Funes in the outpatient setting reporting having increased abdominal pain in the lower region that progressively got worse and started vomiting and came to the hospital for further evaluation. Patient was noted to have an acute appendicitis and is status post acute appendectomy. Patient notes that her appendix was perforated. Patient is afebrile although white count is elevated again at 16 and maintained on antibiotics with infectious disease following. Repeat blood cultures pending and current cultures are negative. Patient also currently maintained on 4 L of oxygen via nasal cannula and noted to be a significant amount of IV fluids. Will decrease the rate and x-ray of the abdomen is ordered and recommend chest x-ray. Patient reports he does not wear any oxygen outpatient. Patient also noted to have mildly elevated heart rate and will obtain EKG. Per nursing staff patient has not been getting up and moving postoperatively. Will consult PT/OT therapy and encouraged to increase activity as tolerated. Diet per surgery services. Recommend to continue with bowel regimen due to pain management. 04/04/2024 Patient is seen and evaluated in follow-up today currently sitting up in the chair reports some continued abdominal discomfort also reports a pressure and pain sensation when voiding. Will obtain a repeat urinalysis and also chest x- ray shows some mild volume overload recommend titrating the fluids down and will give IV Lasix and follow-up on repeat labs. Potassium slightly low at 3.1 and magnesium, 1.5 and being replaced per protocol. Patient continues on clear liquid diet per general surgery as patient was noted to have concerns of a postoperative ileus. Patient is not passing gas and has not had a bowel movement. Encourage the patient to get up and walk frequently around the halls. 04/05/2024 Patient seen in follow-up this morning reports to feeling somewhat improved. Patient is voiding but denies any passing of gas or bowel movement. Patient continues on clear liquids with general surgery following and has been instructed to increase activity as tolerated. Continue incentive spirometer use. Patient is currently weaning FiO2 as tolerated and is on 2 L. Patient does not wear oxygen outpatient. Patient is afebrile and white count is trending down. Infectious disease following and patient is maintained on antibiotics. 04/06/2024 Patient is seen in follow-up today feeling slightly improved and is currently sitting up in the chair on room air tolerating thus far. Encouraged incentive spirometer use at least 10 times every hour while awake and getting up and frequent walking. Patient reports passing some gas and was able to have a very scant amount of bowel movement yesterday and continued on bowel regimen along with clear liquids per surgery. White count is trending down and patient is continued on antibiotics with infectious disease following. Review of systems: Constitutional: No reports of fatigue, fever, or chills Cardiovascular: No reports of chest pain or palpitations Respiratory: No reports of shortness of breath or cough GI: reports of intermittent nausea although improved, no reports of vomiting, patient had a bowel movement yesterday and reports is passing gas : reports of pain with urination although improved Neurovascular: reports of generalized weakness, continued abdominal pain All medications have been reviewed PHYSICAL EXAMINATION: GENERAL: The patient is alert and oriented x4, Well developed, elderly appearing, ill-appearing HEENT: Pupils are round and equally reacting to light. EOMI. no scleral icterus. No conjunctival pallor. Normocephalic, atraumatic. No pharyngeal erythema. No thyromegaly. CARDIOVASCULAR: S1 and S2 muffled PULMONARY: diminished breath sounds bilaterally with no wheezing or rhonchi noted. ABDOMEN: soft. tender on exam. . Mildly distended, hypoactive bowel sounds. No palpable organomegaly. MUSCULOSKELETAL: No joint swelling or deformity. EXTREMITIES: No cyanosis, clubbing, or pedal edema. NEUROLOGICAL: Gross neurological examination did not reveal any focal deficits. Diffuse weakness SKIN: No rashes. Assessment: Abdominal pain secondary to acute appendicitis with perforation, status post appendectomy Leukocytosis, secondary to above, trending down Postoperative ileus, improving Continued ongoing nicotine dependence Chronic obstructive pulmonary disease, not in exacerbation Acute hypoxic respiratory failure, secondary to volume overload, currently maintained on 2 L and does not wear oxygen outpatient Hypomagnesemia Hypokalemia GI prophylaxis DVT prophylaxis Full code Plan: Recommend to continue with current medications and management per general surgery. Patient is status post appendectomy maintained on antibiotics with infectious disease following also patient's white count remains elevated. Abdominal x-ray was ordered with concerns of possible ileus. Patient did have a small bowel movement yesterday with some passing gas Magnesium and potassium mildly low and will replace per protocol. Repeat labs ordered for a.m. Continue to encourage incentive spirometer use at least 10 times every hour while awake, patient needs reencouragement and reinforcement frequently PT/OT therapy to evaluate as patient may need ECF on discharge for continued strength and mobility Encouraged to increase activity as tolerated with frequent walking in the halls We will continue to follow with general surgery during hospitalization. Thank you kindly for this consultation. The impression and plan of care has been dictated by Mirta Duke, nurse practitioner as directed. Dr. Blayne MD I have performed a history and examination and MDM of this patient, discussed the same with the dictator, and agree with the dictator's assessment and plan as written ,documented as a scribe. Based on total visit time, I have performed more than 50% of the visit. Any additional findings or plans will be noted. Objective - Vital Signs Vital signs: Vital Signs Temp 97.5 F L 04/06/24 07:01 Pulse 82 04/06/24 07:01 Resp 18 04/06/24 07:01 BP 106/71 04/06/24 07:01 Pulse Ox 98 04/06/24 08:10 FiO2 Intake & Output 04/05/24 04/06/24 04/06/24 18:59 06:59 18:59 Other: Voiding Method Toilet Toilet # Voids 3 2 - Labs CBC & Chem 7: 04/06/24 05:58 04/06/24 05:58 Labs: Abnormal Lab Results - Last 24 Hours (Table) 04/06/24 04/06/24 Range/Units 05:58 05:58 WBC 12.10 H (4.50-10.00) X 10*3/uL RBC 3.99 L (4.10-5.20) X 10*6/uL Hgb 11.4 L (12.0-15.0) g/dL Hct 33.6 L (37.2-46.3) % Immature Gran # 0.58 H (0.00-0.04) X 10*3/uL Neutrophils # 8.05 H (1.80-7.70) X 10*3/uL Monocytes # 1.32 H (0.20-1.00) X 10*3/uL Potassium 3.4 L (3.5-5.5) mmol/L BUN 8.3 L (9.0-27.0) mg/dL Glucose 118 H (70-110) mg/dL Calcium 8.3 L (8.7-10.3) mg/dL Microbiology - Last 24 Hours (Table) 04/04/24 15:11 Blood Culture - Preliminary Blood 04/02/24 07:48 Blood Culture - Preliminary Blood
[2024-04-07 08:03] VITALS: BMI 25.1
[2024-04-07 10:11] LABS: Basophils # (A) 0.08 X 10*3/uL (0.00-0.10); Basophils % (A) 0.6 %; Eosinophils # (A) 0.17 X 10*3/uL (0.04-0.35); Eosinophils % (A) 1.3 %; HGB 11.8 g/dL (12.0-15.0); Lymphocytes # (A) 2.66 X 10*3/uL (0.90-5.00); Lymphocytes % (A) 20.5 %; MCH 28.6 pg (27.0-32.0); MCHC 33.7 g/dL (32.0-37.0); MCV 84.7 FL (80.0-97.0); Mean Platelet Volume 10.2 FL (9.5-12.2); Monocytes # (A) 1.34 X 10*3/uL (0.20-1.00); Monocytes % (A) 10.3 %; NRBC Per 100 WBC 0 X 10*3/uL (0.00-0.01); Neutrophils # (A) 8.37 X 10*3/uL (1.80-7.70); Neutrophils % (A) 64.5 %; Platelet Count 369 X 10*3/uL (140-440); RBC 4.13 X 10*6/uL (4.10-5.20); RDW 14.2 % (11.5-14.5); WBC 12.99 X 10*3/uL (4.50-10.00)
[2024-04-07 10:28] LABS: ALT 17 U/L (8-44); AST 31 U/L (13-35); Albumin 3.1 g/dL (3.8-4.9); Albumin/Globulin Ratio 1.29 Ratio (1.60-3.17); Alkaline Phosphatase 254 U/L (41-126); BUN/Creat Ratio 12.33 Ratio (12.00-20.00); Blood Urea Nitrogen 7.4 mg/dL (9.0-27.0); Calcium 8.4 mg/dL (8.7-10.3); Carbon Dioxide 30.8 mmol/L (21.6-31.8); Chloride 99 mmol/L (96-109); Globulin 2.4 g/dL (1.6-3.3); Glucose 108 mg/dL (70-110); Magnesium 1.9 mg/dL (1.5-2.4); Potassium 3.7 mmol/L (3.5-5.5); Sodium 141 mmol/L (135-145); Total Protein 5.5 g/dL (6.2-8.2)
--- NOTE | 2024-04-07 14:27 | P.PN ---
Subjective Progress Note Date: 04/07/24 CHIEF COMPLAINT: Appendicitis HISTORY OF PRESENT ILLNESS: The patient is a 64-year-old female status post appendicitis for acute perforated appendicitis. She had a bowel movement. Her ileus is resolved. She is passing flatus. She is tolerating clear liquid diet. No reports of fevers or chills. She is sitting up in a chair. ROS: No reports of nausea and vomiting. No bowel movements. No fevers or chills. No new chest pain. No productive sputum PHYSICAL EXAM: VITAL SIGNS: Reviewed CONSTITUTIONAL: Well developed and in no acute distress. EYES: Conjuctivae without sclera icterus. Extraocular movements grossly intact. HEAD, EARS, NOSE, THROAT: Moist buccal mucosa. Head is atraumatic, normocephalic. Hears conversational speech. No nasal drainage. RESPIRATORY: Non-labored respirations and equal bilateral excursions. CARDIOVASCULAR: Palpable 2+ radial pulses. ABDOMEN: Incision intact. MUSCULOSKELETAL: No gross deformity of the lower extremities noted. No clubbing. No cyanosis. SKIN: Good skin turgor. Well perfused. NEUROLOGIC: Cranial nerves II through XII grossly intact. No focal or lateralizing signs. PSYCH: Appropriate affect. Alert and oriented to person, place and time. CLINICAL LABS: Reviewed. WBC elevated from 12.1-13. ASSESSMENT: 1. Acute appendicitis with rupture with sepsis 2. Ileus, resolved PLAN: 1. Will advance to low fiber diet. 2. Antibiotic management per infectious disease. 3. Repeat CBC. 4. If continued upward trend of leukocytosis, may benefit from repeat CT of the abdomen pelvis Objective - Vital Signs Vital signs: Vital Signs Temp 97.6 F 04/07/24 07:05 Pulse 83 04/07/24 07:45 Resp 19 04/07/24 07:45 BP 105/70 04/07/24 07:05 Pulse Ox 90 L 04/07/24 07:51 FiO2 Intake & Output 04/06/24 04/07/24 04/07/24 18:59 06:59 18:59 Weight 79.379 kg Other: Voiding Method Toilet # Voids 3 2 - Labs CBC & Chem 7: 04/07/24 06:39 04/07/24 06:39 Labs: Abnormal Lab Results - Last 24 Hours (Table) 04/07/24 04/07/24 Range/Units 06:39 06:39 WBC 12.99 H (4.50-10.00) X 10*3/uL Hgb 11.8 L (12.0-15.0) g/dL Hct 35.0 L (37.2-46.3) % Immature Gran # 0.37 H (0.00-0.04) X 10*3/uL Neutrophils # 8.37 H (1.80-7.70) X 10*3/uL Monocytes # 1.34 H (0.20-1.00) X 10*3/uL BUN 7.4 L (9.0-27.0) mg/dL Calcium 8.4 L (8.7-10.3) mg/dL Alkaline Phosphatase 254 H (41-126) U/L Total Protein 5.5 L (6.2-8.2) g/dL Albumin 3.1 L (3.8-4.9) g/dL Albumin/Globulin Ratio 1.29 L (1.60-3.17) Ratio Microbiology - Last 24 Hours (Table) 04/04/24 15:11 Blood Culture - Preliminary Blood 04/01/24 01:21 Blood Culture - Final Blood
--- NOTE | 2024-04-07 15:33 | P.PN ---
Subjective Progress Note Date: 04/07/24 Principal diagnosis: Reason for follow-up is perforated appendicitis with abscess Patient is a 64-year-old female with a past medical history significant for varicose vein current everyday smoker presenting to the hospital with abdominal pain has been diagnosed with perforated appendicitis status post laparoscopic appendectomy and drainage of the abscess. On today's evaluation that is 04/07/2024, Patient is afebrile this morning patient denies having any chest pain shortness of breath or cough, the patient is breathing comfortably and currently on room air, patient abdominal pain is currently controlled with the pain medication some nausea but no vomiting menti on did have small bowel movement this morning. Patient white count is 12.99 creatinine 0.6 blood culture has been negative Objective - Vital Signs Vital signs: Vital Signs Temp 97.6 F 04/07/24 07:05 Pulse 83 04/07/24 07:45 Resp 19 04/07/24 07:45 BP 105/70 04/07/24 07:05 Pulse Ox 90 L 04/07/24 07:51 FiO2 Intake & Output 04/06/24 04/07/24 04/07/24 18:59 06:59 18:59 Weight 79.379 kg Other: Voiding Method Toilet # Voids 3 2 - Exam GENERAL DESCRIPTION: An elderly female lying in bed in no distress RESPIRATORY SYSTEM: Unlabored breathing , decreased breath sounds at bases HEART: S1 S2 regular rate and rhythm , ABDOMEN: Soft , mild tenderness EXTREMITIES: No edema feet - Labs CBC & Chem 7: 04/07/24 06:39 04/07/24 06:39 Labs: Abnormal Lab Results - Last 24 Hours (Table) 04/07/24 04/07/24 Range/Units 06:39 06:39 WBC 12.99 H (4.50-10.00) X 10*3/uL Hgb 11.8 L (12.0-15.0) g/dL Hct 35.0 L (37.2-46.3) % Immature Gran # 0.37 H (0.00-0.04) X 10*3/uL Neutrophils # 8.37 H (1.80-7.70) X 10*3/uL Monocytes # 1.34 H (0.20-1.00) X 10*3/uL BUN 7.4 L (9.0-27.0) mg/dL Calcium 8.4 L (8.7-10.3) mg/dL Alkaline Phosphatase 254 H (41-126) U/L Total Protein 5.5 L (6.2-8.2) g/dL Albumin 3.1 L (3.8-4.9) g/dL Albumin/Globulin Ratio 1.29 L (1.60-3.17) Ratio Microbiology - Last 24 Hours (Table) 04/04/24 15:11 Blood Culture - Preliminary Blood 04/01/24 01:21 Blood Culture - Final Blood Assessment and Plan (1) Acute appendicitis with perforation and localized peritonitis Current Visit: Yes Status: Acute Code(s): K35.32 - AC APPENDICITIS W PERF, L OC PERITONITIS, & GANGR, W/O ABSCS SNOMED Code(s): 795192553 (2) Leukocytosis Current Visit: Yes Status: Acute Code(s): D72.829 - ELEVATED WHITE BLOOD CELL COUNT, UNSPECIFIED SNOMED Code(s): 049790155 Plan: 1patient presented to hospital with abdominal pain nausea and vomiting and this patient has been diagnosed with a perforated appendicitis with intra-abdominal abscess status post appendectomy and drainage of the abscess will need to cover for the enteric gram-negative both aerobes and anaerobes 2-blood cultures has been negative 3-patient remains to be afebrile white count mildly elevated still dealing with anemia still have small bowel movement continue with the Zosyn while inpatient Dictation was produced using [employer] dictation software. please excuse any grammatical, word or spelling errors. Time with Patient: Less than 30
[2024-04-07] MEDS: PANTOPRAZOLE 40 MG TABLET PO SCH (17:24)
--- NOTE | 2024-04-08 06:52 | P.PN ---
Subjective Progress Note Date: 04/07/[address] Funes Consult reason: Medical management, status post appendectomy History of present illness: This is a 64-year-old female who was recently admitted under surgical services and follows with Dr. Funes in the outpatient setting reporting having increased abdominal pain in the lower region that progressively got worse and started vomiting and came to the hospital for further evaluation. Patient was noted to have an acute appendicitis and is status post acute appendectomy. Patient notes that her appendix was perforated. Patient is afebrile although white count is elevated again at 16 and maintained on antibiotics with infectious disease following. Repeat blood cultures pending and current cultures are negative. Patient also currently maintained on 4 L of oxygen via nasal cannula and noted to be a significant amount of IV fluids. Will decrease the rate and x-ray of the abdomen is ordered and recommend chest x-ray. Patient reports he does not wear any oxygen outpatient. Patient also noted to have mildly elevated heart rate and will obtain EKG. Per nursing staff patient has not been getting up and moving postoperatively. Will consult PT/OT therapy and encouraged to increase activity as tolerated. Diet per surgery services. Recommend to continue with bowel regimen due to pain management. 04/04/2024 Patient is seen and evaluated in follow-up today currently sitting up in the chair reports some continued abdominal discomfort also reports a pressure and pain sensation when voiding. Will obtain a repeat urinalysis and also chest x- ray shows some mild volume overload recommend titrating the fluids down and will give IV Lasix and follow-up on repeat labs. Potassium slightly low at 3.1 and magnesium, 1.5 and being replaced per protocol. Patient continues on clear liquid diet per general surgery as patient was noted to have concerns of a postoperative ileus. Patient is not passing gas and has not had a bowel movement. Encourage the patient to get up and walk frequently around the halls. 04/05/2024 Patient seen in follow-up this morning reports to feeling somewhat improved. Patient is voiding but denies any passing of gas or bowel movement. Patient continues on clear liquids with general surgery following and has been instructed to increase activity as tolerated. Continue incentive spirometer use. Patient is currently weaning FiO2 as tolerated and is on 2 L. Patient does not wear oxygen outpatient. Patient is afebrile and white count is trending down. Infectious disease following and patient is maintained on antibiotics. 04/06/2024 Patient is seen in follow-up today feeling slightly improved and is currently sitting up in the chair on room air tolerating thus far. Encouraged incentive spirometer use at least 10 times every hour while awake and getting up and frequent walking. Patient reports passing some gas and was able to have a very scant amount of bowel movement yesterday and continued on bowel regimen along with clear liquids per surgery. White count is trending down and patient is continued on antibiotics with infectious disease following. 04/07/2024 Patient is seen in follow-up today currently up and walking the halls. Patient reports is having bowel movements and urinating with no difficulties. Patient has been weaned off maintaining 90% above on room air. Patient has been instructed to continue using incentive spirometer at least 10 times every hour while awake. Patient continues on clear liquid diet per general surgery and to be advanced for them. Patient is reporting she is feeling more hungry and tired of eating clear liquids. Patient is afebrile although white count is mildly elayne vated at 12 and is maintained on antibiotics with infectious disease following. Repeat labs ordered for a.m. Review of systems: Constitutional: No reports of fatigue, fever, or chills Cardiovascular: No reports of chest pain or palpitations Respiratory: No reports of shortness of breath or cough GI: reports of intermittent nausea although improved, no reports of vomiting, patient had a bowel movement and reports is passing gas : reports of pain with urination although improved Neurovascular: reports of generalized weakness, continued abdominal pain All medications have been reviewed PHYSICAL EXAMINATION: GENERAL: The patient is alert and oriented x4, Well developed, elderly wallace earing, ill-appearing HEENT: Pupils are round and equally reacting to light. EOMI. no scleral icterus. No conjunctival pallor. Normocephalic, atraumatic. No pharyngeal erythema. No thyromegaly. CARDIOVASCULAR: S1 and S2 muffled PULMONARY: diminished breath sounds bilaterally with no wheezing or rhonchi noted. ABDOMEN: soft. tender on exam. . Mildly distended, hypoactive bowel sounds. No palpable organomegaly. MUSCULOSKELETAL: No joint swelling or deformity. EXTREMITIES: No cyanosis, clubbing, or pedal edema. NEUROLOGICAL: Gross neurological examination did not reveal any focal deficits. Diffuse weakness SKIN: No rashes. Assessment: Abdominal pain secondary to acute appendicitis with perforation, status post appendectomy Leukocytosis, secondary to above, trending down Postoperative ileus, improving Continued ongoing nicotine dependence Chronic obstructive pulmonary disease, not in exacerbation Acute hypoxic respiratory failure, secondary to volume overload, currently maint ained on 2 L and does not wear oxygen outpatient Hypomagnesemia Hypokalemia GI prophylaxis DVT prophylaxis Full code Plan: Recommend to continue with current medications and management per general s urgery. Patient is status post appendectomy maintained on antibiotics with infectious disease following also patient's white count remains elevated. Abdominal x-ray was ordered with concerns of possible ileus. Patient did have a small bowel movement today with some passing gas Magnesium and potassium mildly low and will replace per protocol. Repeat labs ordered for a.m. Continue to encourage incentive spirometer use at least 10 times every hour while awake, patient needs reencouragement and reinforcement frequently PT/OT therapy to evaluate as patient may need ECF on discharge for continued strength and mobility Encouraged to increase activity as tolerated with frequent walking in the halls We will continue to follow with general surgery during hospitalization. Thank you kindly for this consultation. The impression and plan of care has been dictated by Mirta Duke, nurse practitioner as directed. Dr. Blayne MD I have performed a history and examination and MDM of this patient, discussed the same with the dictator, and agree with the dictator's assessment and plan as written ,documented as a scribe. Based on total visit time, I have performed more than 50% of the visit. Any additional findings or plans will be noted. Objective - Vital Signs Vital signs: Vital Signs Temp 97.6 F 04/07/24 07:05 Pulse 83 04/07/24 07:45 Resp 19 04/07/24 07:45 BP 105/70 04/07/24 07:05 Pulse Ox 90 L 04/07/24 07:51 FiO2 Intake & Output 04/06/24 04/07/24 04/07/24 18:59 06:59 18:59 Weight 79.379 kg Other: Voiding Method Toilet # Voids 3 2 - Labs CBC & Chem 7: 04/07/24 06:39 04/07/24 06:39 Labs: Abnormal Lab Results - Last 24 Hours (Table) 04/07/24 04/07/24 Range/Units 06:39 06:39 WBC 12.99 H (4.50-10.00) X 10*3/uL Hgb 11.8 L (12.0-15.0) g/dL Hct 35.0 L (37.2-46.3) % Immature Gran # 0.37 H (0.00-0.04) X 10*3/uL Neutrophils # 8.37 H (1.80-7.70) X 10*3/uL Monocytes # 1.34 H (0.20-1.00) X 10*3/uL BUN 7.4 L (9.0-27.0) mg/dL Calcium 8.4 L (8.7-10.3) mg/dL Alkaline Phosphatase 254 H (41-126) U/L Total Protein 5.5 L (6.2-8.2) g/dL Albumin 3.1 L (3.8-4.9) g/dL Albumin/Globulin Ratio 1.29 L (1.60-3.17) Ratio Microbiology - Last 24 Hours (Table) 04/04/24 15:11 Blood Culture - Preliminary Blood 04/01/24 01:21 Blood Culture - Final Blood
[2024-04-08 07:36] LABS: Basophils % (A) 0 %; Eosinophils # (A) 0.2 k/uL (0-0.7); Eosinophils % (A) 1 %; HCT 34.1 % (34.0-46.0); HGB 11.1 gm/dL (11.4-16.0); Lymphocytes # (A) 1.5 k/uL (1.0-4.8); Lymphocytes % (A) 14 %; MCH 28.9 pg (25.0-35.0); MCHC 32.6 g/dL (31.0-37.0); MCV 88.4 fL (80.0-100.0); Mean Platelet Volume 7.5; Monocytes # (A) 0.7 k/uL (0-1.0); Monocytes % (A) 6 %; Neutrophils # (A) 8.4 k/uL (1.3-7.7); Neutrophils % (A) 76 %; Platelet Count 378 k/uL (150-450); RBC 3.86 m/uL (3.80-5.40); RDW 13.3 % (11.5-15.5)
[2024-04-08 08:03] LABS: ALT 19 U/L (4-34); AST 30 U/L (14-36); African American GFR (CKD) >90 (>60 ml/min/1.73 sqM); Albumin 2.8 g/dL (3.5-5.0); Albumin/Globulin Ratio 1.1; Alkaline Phosphatase 202 U/L (38-126); Anion Gap 1 mmol/L; Blood Urea Nitrogen 8 mg/dL (7-17); Calcium 8.3 mg/dL (8.4-10.2); Carbon Dioxide 33 mmol/L (22-30); Chloride 103 mmol/L (98-107); Globulin 2.5 g/dL; Glucose 100 mg/dL (74-99); Non-African American GFR(CKD) >90 (>60 ml/min/1.73 sqM); Potassium 3.3 mmol/L (3.5-5.1); Sodium 137 mmol/L (137-145); Total Bilirubin 1.3 mg/dL (0.2-1.3); Total Protein 5.3 g/dL (6.3-8.2)
--- NOTE | 2024-04-08 14:59 | P.PN ---
Subjective Progress Note Date: 04/08/24 Principal diagnosis: Reason for follow-up is perforated appendicitis with abscess Patient is a 64-year-old female with a past medical history significant for varicose vein current everyday smoker presenting to the hospital with abdominal pain has been diagnosed with perforated appendicitis status post laparoscopic appendectomy and drainage of the abscess. On today's evaluation that is 04/08/2024,the patient denies any fever or any chills, patient is breathing comfortably on room air, the patient denies chest pain shortness of breath and no significant cough, patient still complaining of some abdominal discomfort controlled with the pain medication no nausea vomiting did have a small bowel movement. Patient white count is down to 11,000, creatinine 0.53 Objective - Vital Signs Vital signs: Vital Signs Temp 97.6 F 04/08/24 12:44 Pulse 101 H 04/08/24 12:44 Resp 18 04/08/24 12:44 BP 116/75 04/08/24 12:44 Pulse Ox 91 L 04/08/24 12:44 FiO2 Intake & Output 04/07/24 04/08/24 04/08/24 18:59 06:59 18:59 Output Total 3 0 Balance -3 0 Weight 79.379 kg Output: Drainage 3 0 Abdomen 3 0 Other: Voiding Method Toilet Toilet # Voids 3 1 # Bowel Movements 1 - Exam GENERAL DESCRIPTION: An elderly female lying in bed in no distress RESPIRATORY SYSTEM: Unlabored breathing , decreased breath sounds at bases HEART: S1 S2 regular rate and rhythm , ABDOMEN: Soft , mild tenderness EXTREMITIES: No edema feet - Labs CBC & Chem 7: 04/08/24 06:49 04/08/24 06:49 Labs: Abnormal Lab Results - Last 24 Hours (Table) 04/08/24 04/08/24 Range/Units 06:49 06:49 WBC 11.0 H (3.8-10.6) k/uL Hgb 11.1 L (11.4-16.0) gm/dL Neutrophils # 8.4 H (1.3-7.7) k/uL Potassium 3.3 L (3.5-5.1) mmol/L Carbon Dioxide 33 H (22-30) mmol/L Glucose 100 H (74-99) mg/dL Calcium 8.3 L (8.4-10.2) mg/dL Alkaline Phosphatase 202 H (38-126) U/L Total Protein 5.3 L (6.3-8.2) g/dL Albumin 2.8 L (3.5-5.0) g/dL Microbiology - Last 24 Hours (Table) 04/04/24 15:11 Blood Culture - Preliminary Blood 04/02/24 07:48 Blood Culture - Final Blood Assessment and Plan (1) Acute appendicitis with perforation and localized peritonitis Current Visit: Yes Status: Acute Code(s): K35.32 - AC APPENDICITIS W PERF, LOC PERITONITIS, & GANGR, W/O ABSCS SNOMED Code(s): 771621779 (2) Leukocytosis Current Visit: Yes Status: Acute Code(s): D72.829 - ELEVATED WHITE BLOOD CELL COUNT, UNSPECIFIED SNOMED Code(s): 419024635 Plan: 1patient presented to hospital with abdominal pain nausea and vomiting and this patient has been diagnosed with a perforated appendicitis with intra-abdominal abscess status post appendectomy and drainage of the abscess will need to cover for the enteric gram-negative both aerobes and anaerobes 2-blood cultures has been negative 3-patient remains to be afebrile and the white count has almost normalized we will keep the patient on Zosyn transition to oral antibiotics on discharge Dictation was produced using [employer] dictation software. please excuse any grammatical, word or spelling errors. Time with Patient: Less than 30
--- NOTE | 2024-04-09 00:33 | P.PN ---
Subjective Patient seen and evaluated at bedside. Dong well, tolerating diet, denies nausea, vomiting, fevers, chills, shortness of breath or chest pain. Objective - Vital Signs Vital signs: Vital Signs Temp 98.0 F 04/08/24 19:30 Pulse 86 04/08/24 19:30 Resp 18 04/08/24 19:30 BP 112/71 04/08/24 19:30 Pulse Ox 93 L 04/08/24 19:30 FiO2 Intake & Output 04/08/24 04/08/24 04/09/24 06:59 18:59 06:59 Output Total 0 Balance 0 Output: Drainage 0 Abdomen 0 Other: Voiding Method Toilet # Voids 1 4 # Bowel Movements 2 - Exam gen: nad cv: rrr pu: non labored breathing abd: soft, minimally tender to palpation, surgical incision c/d/i, britton drain min amount of purulent output - Labs CBC & Chem 7: 04/08/24 06:49 04/08/24 06:49 Labs: Abnormal Lab Results - Last 24 Hours (Table) 04/08/24 04/08/24 Range/Units 06:49 06:49 WBC 11.0 H (3.8-10.6) k/uL Hgb 11.1 L (11.4-16.0) gm/dL Neutrophils # 8.4 H (1.3-7.7) k/uL Potassium 3.3 L (3.5-5.1) mmol/L Carbon Dioxide 33 H (22-30) mmol/L Glucose 100 H (74-99) mg/dL Calcium 8.3 L (8.4-10.2) mg/dL Alkaline Phosphatase 202 H (38-126) U/L Total Protein 5.3 L (6.3-8.2) g/dL Albumin 2.8 L (3.5-5.0) g/dL Microbiology - Last 24 Hours (Table) 04/04/24 15:11 Blood Culture - Preliminary Blood Assessment and Plan Assessment: 64 yo female s/p lap appy for perforated appendicitis w/ britton drain -continue diet -continue abx -britton purulent output as expected Time with Patient: Less than 30
--- NOTE | 2024-04-09 03:42 | PN ---
PROGRESS NOTE DATE OF SERVICE: 04/08/2024 SUBJECTIVE: This is 64-year-old woman who was admitted after perforated appendix and surgery, is improving significantly. No chest pain. No palpitations. No fever. PHYSICAL EXAMINATION: VITAL SIGNS: Pulse is 101, blood pressure n, respirations 18. CHEST: Clear to auscultation. CARDIOVASCULAR: S1, S2 normal. ABDOMEN: Soft. Mild distention. Nontender. LABORATORY DATA: Labs are reviewed. ASSESSMENT: 1. Acute appendicitis, perforation, status post appendectomy. 2. Leukocytosis. 3. Postoperative ileus. 4. Multiple medical issues. RECOMMENDATIONS: Recommended to continue current management, continue symptomatic treatment. Monitor lytes closely. I would recommend potassium supplementation. We will closely monitor with surgery. Further recommendations to follow. MMEZEQUIELL / KENYONN: [id number] / MTDD
[2024-04-09 10:07] LABS: Basophils # (A) 0.05 X 10*3/uL (0.00-0.10); Basophils % (A) 0.4 %; Eosinophils # (A) 0.13 X 10*3/uL (0.04-0.35); HCT 32.9 % (37.2-46.3); HGB 10.9 g/dL (12.0-15.0); Lymphocytes # (A) 2.06 X 10*3/uL (0.90-5.00); Lymphocytes % (A) 16.6 %; MCH 28.5 pg (27.0-32.0); MCHC 33.1 g/dL (32.0-37.0); MCV 85.9 FL (80.0-97.0); Mean Platelet Volume 9.9 FL (9.5-12.2); Monocytes # (A) 1.11 X 10*3/uL (0.20-1.00); Monocytes % (A) 8.9 %; NRBC Per 100 WBC 0 X 10*3/uL (0.00-0.01); Neutrophils # (A) 8.77 X 10*3/uL (1.80-7.70); Neutrophils % (A) 70.7 %; Platelet Count 388 X 10*3/uL (140-440); RBC 3.83 X 10*6/uL (4.10-5.20); RDW 14.4 % (11.5-14.5); WBC 12.42 X 10*3/uL (4.50-10.00)
[2024-04-09 10:24] LABS: BUN/Creat Ratio 15.17 Ratio (12.00-20.00); Blood Urea Nitrogen 9.1 mg/dL (9.0-27.0); Calcium 8.2 mg/dL (8.7-10.3); Carbon Dioxide 27.6 mmol/L (21.6-31.8); Chloride 102 mmol/L (96-109); Glucose 104 mg/dL (70-110); Potassium 3.6 mmol/L (3.5-5.5); Sodium 141 mmol/L (135-145)
--- NOTE | 2024-04-09 12:21 | P.PN ---
Subjective Progress Note Date: 04/09/24 CHIEF COMPLAINT: Appendicitis HISTORY OF PRESENT ILLNESS: The patient is a 64-year-old female status post appendicitis for acute perforated appendicitis. Sitting up at bedside. For lunch she is having manage potatoes and meat loaf. She reports lower abdominal discomfort. Family is at bedside eating along lunch with her. ROS: Having bowel movements. No fevers or chills. No new chest pain. No productive sputum PHYSICAL EXAM: VITAL SIGNS: Reviewed CONSTITUTIONAL: Well developed and in no acute distress. EYES: Conjuctivae without sclera icterus. Extraocular movements grossly intact. HEAD, EARS, NOSE, THROAT: Moist buccal mucosa. Head is atraumatic, normocephalic. Hears conversational speech. No nasal drainage. RESPIRATORY: Non-labored respirations and equal bilateral excursions. CARDIOVASCULAR: Palpable 2+ radial pulses. ABDOMEN: Incision intact. SHELL fecal purulence. Output less than 10 cc daily. MUSCULOSKELETAL: No gross deformity of the lower extremities noted. No club siobhan. No cyanosis. SKIN: Good skin turgor. Well perfused. NEUROLOGIC: Cranial nerves II through XII grossly intact. No focal or lateralizing signs. PSYCH: Appropriate affect. Alert and oriented to person, place and time. CLINICAL LABS: Reviewed. WBC persistent elevation, over 12,000 ASSESSMENT: 1. Acute appendicitis with rupture with sepsis 2. Ileus, resolved PLAN: 1. As her WBC continues to elevate, recommend CT of the abdomen pelvis for intra-abdominal abscess. 2. Continue low fiber diet. Objective - Vital Signs Vital signs: Vital Signs Temp 97.5 F L 04/09/24 06:59 Pulse 81 04/09/24 07:26 Resp 18 04/09/24 07:26 BP 122/79 04/09/24 06:59 Pulse Ox 91 L 04/09/24 06:59 FiO2 Intake & Output 04/08/24 04/09/24 04/09/24 18:59 06:59 18:59 Output Total 0 0 5 Balance 0 0 -5 Output: Drainage 0 0 5 Abdomen 0 0 5 Other: Voiding Method Toilet Toilet Toilet # Voids 4 2 # Bowel Movements 2 - Labs CBC & Chem 7: 04/09/24 04:34 04/09/24 04:34 Labs: Abnormal Lab Results - Last 24 Hours (Table) 04/09/24 04/09/24 Range/Units 04:34 04:34 WBC 12.42 H (4.50-10.00) X 10*3/uL RBC 3.83 L (4.10-5.20) X 10*6/uL Hgb 10.9 L (12.0-15.0) g/dL Hct 32.9 L (37.2-46.3) % Immature Gran # 0.30 H (0.00-0.04) X 10*3/uL Neutrophils # 8.77 H (1.80-7.70) X 10*3/uL Monocytes # 1.11 H (0.20-1.00) X 10*3/uL Calcium 8.2 L (8.7-10.3) mg/dL
--- NOTE | 2024-04-09 14:21 | XR ---
EXAMINATION TYPE: XR chest 1V portable DATE OF EXAM: 04/09/2024 2:07 PM CLINICAL INDICATION:Female, 64 years old with history of pneumonia?; [facility] COMPARISON: Chest radiographs 04/03/2024 from TECHNIQUE: XR chest 1V portable Frontal view of the chest. FINDINGS: Lungs/Pleura: Low lung volumes are present. There is no evidence of pleural effusion, focal consolida tion, or pneumothorax. Pulmonary vascularity: Unremarkable. Heart/mediastinum: Cardiomediastinal silhouette is unremarkable. Musculoskeletal: No acute osseous pathology. IMPRESSION: No significant change. No focal airspace opacities visualized. Low lung volumes.
--- NOTE | 2024-04-09 17:13 | P.PN ---
Subjective Progress Note Date: 04/09/24 Principal diagnosis: Reason for follow-up is perforated appendicitis with abscess Patient is a 64-year-old female with a past medical history significant for varicose vein current everyday smoker presenting to the hospital with abdominal pain has been diagnosed with perforated appendicitis status post laparoscopic appendectomy and drainage of the abscess. On today's evaluation that is 04/09/2024,the patient remains to be afebrile, patient is on room air not requiring supplemental oxygen and denies any shortness of breath no chest pain or cough.Patient denies having any nausea or vomiting, abdominal pain slightly decreased intensity mention to have small bowel movement. Patient white count is slightly up to 12.42 today, creatinine is 0.6 chest x-ray no focal airspace disease Objective - Vital Signs Vital signs: Vital Signs Temp 97.3 F L 04/09/24 13:40 Pulse 78 04/09/24 13:40 Resp 18 04/09/24 13:40 BP 114/71 04/09/24 13:40 Pulse Ox 93 L 04/09/24 13:40 FiO2 Intake & Output 04/08/24 04/09/24 04/09/24 18:59 06:59 18:59 Output Total 0 0 5 Balance 0 0 -5 Output: Drainage 0 0 5 Abdomen 0 0 5 Other: Voiding Method Toilet Toilet Toilet # Voids 4 2 # Bowel Movements 2 - Exam GENERAL DESCRIPTION: An elderly female lying in bed in no distress RESPIRATORY SYSTEM: Unlabored breathing , decreased breath sounds at bases HEART: S1 S2 regular rate and rhythm , ABDOMEN: Soft , mild tenderness EXTREMITIES: No edema feet - Labs CBC & Chem 7: 04/09/24 04:34 04/09/24 04:34 Labs: Abnormal Lab Results - Last 24 Hours (Table) 04/09/24 04/09/24 Range/Units 04:34 04:34 WBC 12.42 H (4.50-10.00) X 10*3/uL RBC 3.83 L (4.10-5.20) X 10*6/uL Hgb 10.9 L (12.0-15.0) g/dL Hct 32.9 L (37.2-46.3) % Immature Gran # 0.30 H (0.00-0.04) X 10*3/uL Neutrophils # 8.77 H (1.80-7.70) X 10*3/uL Monocytes # 1.11 H (0.20-1.00) X 10*3/uL Calcium 8.2 L (8.7-10.3) mg/dL Assessment and Plan (1) Acute appendicitis with perforation and localized peritonitis Current Visit: Yes Status: Acute Code(s): K35.32 - AC APPENDICITIS W PERF, LOC PERITONITIS, & GANGR, W/O ABSCS SNOMED Code(s): 505465679 (2) Leukocytosis Current Visit: Yes Status: Acute Code(s): D72.829 - ELEVATED WHITE BLOOD CELL COUNT, UNSPECIFIED SNOMED Code(s): 906078190 Plan: 1patient presented to hospital with abdominal pain nausea and vomiting and this patient has been diagnosed with a perforated appendicitis with intra-abdominal abscess status post appendectomy and drainage of the abscess will need to cover for the enteric gram-negative both aerobes and anaerobes 2-blood cultures has been negative 3-patient remains to be afebrile and the white count slightly up today with persistent symptoms of ileus and elevated white count may benefit from CT abdominal pelvis for now continue with the [employer] Dictation was produced using [employer] dictation software. please excuse any grammatical, word or spelling errors. Time with Patient: Less than 30
--- NOTE | 2024-04-10 04:45 | PN ---
PROGRESS NOTE DATE OF SERVICE: 04/09/2024 SUBJECTIVE: This is a 64-year-old woman who was admitted with acute appendicitis and some minimal abdominal distention. No chest pain. No palpitation. PHYSICAL EXAMINATION: VITAL SIGNS: Pulse is 74, blood pressure n, respirations 17. CHEST: Clear to auscultation. CARDIOVASCULAR: S1, S2. ABDOMEN: Soft. LABORATORY DATA: WBC 12.242. ASSESSMENT: 1. Acute appendicitis, perforation, status post appendectomy. 2. Elevated WBC. 3. Postoperative ileus. 4. Multiple medical issues. RECOMMENDATIONS: I recommended to continue current management and continue symptomatic treatment. Otherwise, at this time, I would recommend repeat labs tomorrow. The most recent chest x-ray which was reviewed showed some basal atelectasis. I recommended a chest x-ray and continue to monitor. Further recommendations to follow. ARMANI / KENYONN: [id number] / MTDD
[2024-04-10] MEDS: IOPAMIDOL CONTRAST (ORAL USE) VIAL PO PRN (07:27)
[2024-04-10 08:44] LABS: Basophils # (A) 0.04 X 10*3/uL (0.00-0.10); Basophils % (A) 0.3 %; Eosinophils # (A) 0.22 X 10*3/uL (0.04-0.35); Eosinophils % (A) 1.6 %; HCT 34.4 % (37.2-46.3); HGB 11.2 g/dL (12.0-15.0); Lymphocytes # (A) 2.13 X 10*3/uL (0.90-5.00); Lymphocytes % (A) 15.9 %; MCH 28.1 pg (27.0-32.0); MCHC 32.6 g/dL (32.0-37.0); MCV 86.4 FL (80.0-97.0); Mean Platelet Volume 9.6 FL (9.5-12.2); Monocytes # (A) 1.15 X 10*3/uL (0.20-1.00); Monocytes % (A) 8.6 %; NRBC Per 100 WBC 0 X 10*3/uL (0.00-0.01); Platelet Count 422 X 10*3/uL (140-440); RBC 3.98 X 10*6/uL (4.10-5.20); RDW 14.4 % (11.5-14.5); WBC 13.36 X 10*3/uL (4.50-10.00)
[2024-04-10 08:52] LABS: BUN/Creat Ratio 13.83 Ratio (12.00-20.00); Blood Urea Nitrogen 8.3 mg/dL (9.0-27.0); Calcium 8.5 mg/dL (8.7-10.3); Carbon Dioxide 26.7 mmol/L (21.6-31.8); Chloride 105 mmol/L (96-109); Glucose 109 mg/dL (70-110); Sodium 142 mmol/L (135-145)
--- NOTE | 2024-04-10 13:58 | CT ---
EXAMINATION TYPE: CT abdomen pelvis w con DATE OF EXAM: 04/10/2024 COMPARISON: 03/31/2024 HISTORY: History of ruptured appendicitis CONTRAST: CT scan of the abdomen and pelvis is performed with Oral Contrast and with IV Contrast, patient injec kobe with 100 mL of Isovue 300. FINDINGS: LUNG BASES-: Basilar atelectasis with small effusions right greater than left. LIVER/GB: The gallbladder is surgically absent. No space occupying hepatic lesion. Biliary tree is of normal caliber. PANCREAS: No inflammation. No distinct mass. SPLEEN: No splenic enlargement. No lesion seen. ADRENALS: No nodule. No thickening. KIDNEYS/BLADDER: No hydronephrosis. No nephrolithiasis. No distinct renal mass. Urinary bladder g rossly unremarkable. BOWEL: There is a right lower quadrant drainage catheter noted to be in place. Postoperative changes of appendectomy. 2 cm fluid collection noted image 71 of 104 right lower quadrant. Additional right l ower quadrant fluid measuring 2.0 x 1.1 cm. Pelvic fluid noted measuring 2.3 x 5.4 cm. The findings c ould be related postoperative seroma however developing abscesses are difficult to exclude. Correlate clinically. There is a small amount of fluid adjacent to the surgical bed as well image 70 01/12/2004 measuring 2.1 cm. Mild persistent reactive ileus. GENITAL ORGANS: No gross abnormality. LYMPH NODES: No greater than 1cm abdominal or pelvic lymph nodes are appreciated. AORTA: No significant abnormality. OSSEOUS STRUCTURES: No significant abnormality is seen. OTHER: No significant additional abnormality is seen. IMPRESSION: 1. Several fluid collections noted right lower quadrant and pelvis which could be related to postoper ative seroma however infected collections are not excluded. 2. Status post appendectomy with drainage catheter noted to be in place.
--- NOTE | 2024-04-10 15:07 | P.PN ---
Subjective Progress Note Date: 04/10/24 CHIEF COMPLAINT: Appendicitis HISTORY OF PRESENT ILLNESS: Patient is postop day #9 status post laparoscopic appendectomy with drainage of abscess. Patient's last bowel movement was 2 days ago. She does report that her abdomen is still distended. She denies any nausea or vomiting. She still reports pain. She had a CT scan abdomen completed due to elevated white count. The results reported several fluid collections noted right lower quadrant and pelvis which could be related to postoperative seroma however infected collections are not excluded. Status post appendectomy with drainage catheter noted to be in place. Afebrile. WBC is up at 13.36 Hgb 11.2 PHYSICAL EXAM: VITAL SIGNS: Reviewed. GENERAL: Well-developed in no acute distress. ABDOMEN: Soft. distended. Tenderness right lower quadrant SHELL drain with purulent drainage NEUROLOGIC: Alert and oriented. Cranial nerves II through XII grossly intact. ASSESSMENT: 1. Acute perforated appendicitis 2. Postoperative ileus can be an expected complication after surgery 3. CT scan reporting several fluid collections right lower quadrant and pelvis with possible postoperative seroma. Infected fluid collections or not excluded PLAN: -Consult interventional radiology for possible drainage of pelvic abscess -Continue low fiber diet -Encourage patient to ambulate -Encourage patient to use incentive spirometer -Continue antibiotics -DVT prophylaxis Lovenox and GI prophylaxis Pepcid Physician Social Work Faculty Member note has been reviewed by physician. Signing provider agrees with the documented findings, assessment, and plan of care. Objective - Vital Signs Vital signs: Vital Signs Temp 97.7 F 04/10/24 07:18 Pulse 86 04/10/24 07:18 Resp 18 04/10/24 07:18 BP 121/74 04/10/24 07:18 Pulse Ox 90 L 04/10/24 07:18 FiO2 Intake & Output 04/09/24 04/10/24 04/10/24 18:59 06:59 18:59 Output Total 10 20 Balance -10 -20 Output: Drainage 10 20 Abdomen 10 20 Other: Voiding Method Toilet Toilet # Voids 3 3 - Labs CBC & Chem 7: 04/10/24 05:16 04/10/24 05:16 Labs: Abnormal Lab Results - Last 24 Hours (Table) 04/10/24 04/10/24 Range/Units 05:16 05:16 WBC 13.36 H (4.50-10.00) X 10*3/uL RBC 3.98 L (4.10-5.20) X 10*6/uL Hgb 11.2 L (12.0-15.0) g/dL Hct 34.4 L (37.2-46.3) % Immature Gran # 0.22 H (0.00-0.04) X 10*3/uL Neutrophils # 9.60 H (1.80-7.70) X 10*3/uL Monocytes # 1.15 H (0.20-1.00) X 10*3/uL BUN 8.3 L (9.0-27.0) mg/dL Calcium 8.5 L (8.7-10.3) mg/dL Microbiology - Last 24 Hours (Table) 04/04/24 15:11 Blood Culture - Final Blood
[2024-04-10 16:31] LABS: Partial Thromboplastin Time 26.5 sec (22.0-30.0)
--- NOTE | 2024-04-11 05:53 | P.PN ---
Subjective Progress Note Date: 04/10/[address] Funes Consult reason: Medical management, status post appendectomy History of present illness: This is a 64-year-old female who was recently admitted under surgical services and follows with Dr. Funes in the outpatient setting reporting having increased abdominal pain in the lower region that progressively got worse and started vomiting and came to the hospital for further evaluation. Patient was noted to have an acute appendicitis and is status post acute appendectomy. Patient notes that her appendix was perforated. Patient is afebrile although white count is elevated again at 16 and maintained on antibiotics with infectious disease following. Repeat blood cultures pending and current cultures are negative. Patient also currently maintained on 4 L of oxygen via nasal cannula and noted to be a significant amount of IV fluids. Will decrease the rate and x-ray of the abdomen is ordered and recommend chest x-ray. Patient reports he does not wear any oxygen outpatient. Patient also noted to have mildly elevated heart rate and will obtain EKG. Per nursing staff patient has not been getting up and moving postoperatively. Will consult PT/OT therapy and encouraged to increase activity as tolerated. Diet per surgery services. Recommend to continue with bowel regimen due to pain management. 04/04/2024 Patient is seen and evaluated in follow-up today currently sitting up in the chair reports some continued abdominal discomfort also reports a pressure and pain sensation when voiding. Will obtain a repeat urinalysis and also chest x- ray shows some mild volume overload recommend titrating the fluids down and will give IV Lasix and follow-up on repeat labs. Potassium slightly low at 3.1 and magnesium, 1.5 and being replaced per protocol. Patient continues on clear liquid diet per general surgery as patient was noted to have concerns of a postoperative ileus. Patient is not passing gas and has not had a bowel movement. Encourage the patient to get up and walk frequently around the halls. 04/05/2024 Patient seen in follow-up this morning reports to feeling somewhat improved. Patient is voiding but denies any passing of gas or bowel movement. Patient continues on clear liquids with general surgery following and has been instructed to increase activity as tolerated. Continue incentive spirometer use. Patient is currently weaning FiO2 as tolerated and is on 2 L. Patient does not wear oxygen outpatient. Patient is afebrile and white count is trending down. Infectious disease following and patient is maintained on antibiotics. 04/06/2024 Patient is seen in follow-up today feeling slightly improved and is currently sitting up in the chair on room air tolerating thus far. Encouraged incentive spirometer use at least 10 times every hour while awake and getting up and frequent walking. Patient reports passing some gas and was able to have a very scant amount of bowel movement yesterday and continued on bowel regimen along with clear liquids per surgery. White count is trending down and patient is continued on antibiotics with infectious disease following. 04/07/2024 Patient is seen in follow-up today currently up and walking the halls. Patient reports is having bowel movements and urinating with no difficulties. Patient has been weaned off maintaining 90% above on room air. Patient has been instructed to continue using incentive spirometer at least 10 times every hour while awake. Patient continues on clear liquid diet per general surgery and to be advanced for them. Patient is reporting she is feeling more hungry and tired of eating clear liquids. Patient is afebrile although white count is mildly elayne vated at 12 and is maintained on antibiotics with infectious disease following. Repeat labs ordered for a.m. 04/10/2024 Patient is seen in follow-up this morning followed by general surgery and infec tious disease. Patient white count is elevated and abdomen feels more distended and repeat CT abdomen is ordered and pending. Patient continues on antibiotics with infectious disease following and diet was recently advanced to low fiber diet. Patient was having bowel movements and passing gas. Patient is voiding with no difficulties. Patient has been using incentive spirometer and currently maintaining above percent on room air. Patient is afebrile with no reports of chest pain or shortness of breath. Review of systems: Constitutional: No reports of fatigue, fever, or chills Cardiovascular: No reports of chest pain or palpitations Respiratory: No reports of shortness of breath or cough GI: reports of intermittent nausea although improved, no reports of vomiting, patient had a bowel movement and reports is passing gas, reports feeling more distended and bloated : No reports of pain or burning with urination Neurovascular: reports of generalized weakness, continued abdominal pain All medications have been reviewed PHYSICAL EXAMINATION: GENERAL: The patient is alert and oriented x4, Well developed, elderly appearing, ill-appearing HEENT: Pupils are round and equally reacting to light. EOMI. no scleral icterus. No conjunctival pallor. Normocephalic, atraumatic. No pharyngeal erythema. No thyromegaly. CARDIOVASCULAR: S1 and S2 muffled PULMONARY: diminished breath sounds bilaterally with no wheezing or rhonchi noted. ABDOMEN: soft. tender on exam. . Appears more distended, hypoactive bowel sounds. No palpable organomegaly. MUSCULOSKELETAL: No joint swelling or deformity. EXTREMITIES: No cyanosis, clubbing, or pedal edema. NEUROLOGICAL: Gross neurological examination did not reveal any focal deficits. Diffuse weakness SKIN: No rashes. Assessment: Abdominal pain secondary to acute appendicitis with perforation, status post appendectomy Leukocytosis, secondary to above, trending down Postoperative ileus, improving Concerns for multiple fluid collections with concerns of abscess on CT abdomen, interventional radiology consulted for possible abscess drainage Continued ongoing nicotine dependence Chronic obstructive pulmonary disease, not in exacerbation Acute hypoxic respiratory failure, secondary to volume overload, improved, currently maintaining 90% and above on room air Hypomagnesemia Hypokalemia GI prophylaxis DVT prophylaxis Full code Plan: Recommend to continue with current medications and management per general surgery. Patient is status post appendectomy maintained on antibiotics with infectious disease following also patient's white count remains elevated. Postoperative ileus appears improved although patient is having increased distention and bloating. Repeat CT abdomen suggestive of multiple fluid collections with concerns of abscess and infectious process not excluded. Interventional radiology consulted for possible drainage. Recommend cultures during drainage Magnesium and potassium are improved and being replaced per protocol. Repeat labs ordered for a.m. monitor white count. Patient is afebrile Continue to encourage incentive spirometer use at least 10 times every hour while awake, patient needs reencouragement and reinforcement frequently PT/OT therapy to evaluate as patient may need ECF on discharge for continued strength and mobility Encouraged to increase activity as tolerated with frequent walking in the halls We will continue to follow with general surgery during hospitalization. Thank you kindly for this consultation. The impression and plan of care has been dictated by Mirta Duke, nurse practitioner as directed. Dr. Blayne MD I have performed a history and examination and MDM of this patient, discussed the same with the dictator, and agree with the dictator's assessment and plan as written ,documented as a scribe. Based on total visit time, I have performed more than 50% of the visit. Any additional findings or plans will be noted. Objective - Vital Signs Vital signs: Vital Signs Temp 97.7 F 04/10/24 14:46 Pulse 85 04/10/24 14:46 Resp 20 04/10/24 14:46 BP 119/75 04/10/24 14:46 Pulse Ox 94 L 04/10/24 14:46 FiO2 Intake & Output 04/09/24 04/10/24 04/10/24 18:59 06:59 18:59 Output Total 10 20 Balance -10 -20 Weight 79.379 kg Output: Drainage 10 20 Abdomen 10 20 Other: Voiding Method Toilet Toilet # Voids 3 3 2 # Bowel Movements 1 - Labs CBC & Chem 7: 04/10/24 05:16 04/10/24 05:16 Labs: Abnormal Lab Results - Last 24 Hours (Table) 04/10/24 04/10/24 Range/Units 05:16 05:16 WBC 13.36 H (4.50-10.00) X 10*3/uL RBC 3.98 L (4.10-5.20) X 10*6/uL Hgb 11.2 L (12.0-15.0) g/dL Hct 34.4 L (37.2-46.3) % Immature Gran # 0.22 H (0.00-0.04) X 10*3/uL Neutrophils # 9.60 H (1.80-7.70) X 10*3/uL Monocytes # 1.15 H (0.20-1.00) X 10*3/uL BUN 8.3 L (9.0-27.0) mg/dL Calcium 8.5 L (8.7-10.3) mg/dL Microbiology - Last 24 Hours (Table) 04/04/24 15:11 Blood Culture - Final Blood
[2024-04-11 08:40] LABS: Basophils # (A) 0.06 X 10*3/uL (0.00-0.10); Basophils % (A) 0.5 %; Eosinophils # (A) 0.25 X 10*3/uL (0.04-0.35); Eosinophils % (A) 2.1 %; HCT 33.9 % (37.2-46.3); HGB 11.1 g/dL (12.0-15.0); Lymphocytes # (A) 1.61 X 10*3/uL (0.90-5.00); Lymphocytes % (A) 13.2 %; MCH 28.5 pg (27.0-32.0); MCHC 32.7 g/dL (32.0-37.0); MCV 86.9 FL (80.0-97.0); Mean Platelet Volume 9.6 FL (9.5-12.2); Monocytes # (A) 1.15 X 10*3/uL (0.20-1.00); Monocytes % (A) 9.4 %; NRBC Per 100 WBC 0 X 10*3/uL (0.00-0.01); Neutrophils % (A) 73.2 %; Platelet Count 475 X 10*3/uL (140-440); RDW 14.6 % (11.5-14.5); WBC 12.17 X 10*3/uL (4.50-10.00)
[2024-04-11 09:21] LABS: BUN/Creat Ratio 16.17 Ratio (12.00-20.00); Blood Urea Nitrogen 9.7 mg/dL (9.0-27.0); Calcium 8.6 mg/dL (8.7-10.3); Carbon Dioxide 26.1 mmol/L (21.6-31.8); Chloride 104 mmol/L (96-109); Glucose 108 mg/dL (70-110); Magnesium 1.7 mg/dL (1.5-2.4); Sodium 140 mmol/L (135-145)
--- NOTE | 2024-04-11 11:55 | CT ---
EXAMINATION TYPE: CT guided abscess drainage DATE OF EXAM: 04/11/2024 11:44 AM CLINICAL INDICATION:Female, 64 years old with history of See IR consult for order details; Abscess dr madrigal. COMPARISON: 04/10/2024 TECHNIQUE: CT-guided abscess drainage with pigtail catheter placement. CT DLP: 2738 mGycm, Automated exposure control for dose reduction was used. Contrast used: mL of , none Oral contrast used: none ATTENDING: Musa Fraga D.O. PROCEDURE: DLP administered was [address] localizer images were taken which showed safest allowable access to the fluid collection. The patient was prepped, draped in the usual sterile fashion, and locally anesthetized. A 18 x 20 cm Sosa lucien blunt needle was used to access the pelvic abscess with return of purulent fluid. Ove r 0.038 Bentson guidewire exchange an 8.5 [place] pig tail catheter was placed. Approximately 12 point mL of fluid was drained and sent to the lab for analysis. A vacuum drainage b ag was then attached the catheter. There was no blood loss and post-procedure hemostasis was achieve d. The patient tolerated the procedure well without complication. Patient was transferred to the [facility] in stable condition. IMPRESSION: CT guided placement of a percutaneous pigtail drainage catheter.
--- NOTE | 2024-04-11 13:22 | P.PN ---
Subjective Progress Note Date: 04/11/24 CHIEF COMPLAINT: Appendicitis HISTORY OF PRESENT ILLNESS: Patient is postop day #10 status post laparoscopic appendectomy with drainage of abscess. Patient had fluid collection noted in the pelvis on CT scan. IR consulted today for placement of drain for fluid collection. Patient continues to complain of abdominal pain. She did have a bowel movement yesterday. She is having flatus. WBC is 13 down to 12.17 PHYSICAL EXAM: VITAL SIGNS: Reviewed. GENERAL: Well-developed in no acute distress. ABDOMEN: Soft. distended. Tenderness right lower quadrant. SHELL drain with purulent drainage NEUROLOGIC: Alert and oriented. Cranial nerves II through XII grossly intact. ASSESSMENT: 1. Acute perforated appendicitis 2. Postoperative ileus can be an expected complication after surgery 3. CT scan reporting several fluid collections right lower quadrant and pelvis with possible postoperative seroma. Infected fluid collections or not excluded PLAN: -Patient status post CT-guided drain placement by interventional radiology service for pelvic fluid collection -Repeat CBC in a.m. -Continue low fiber diet -Encourage patient to ambulate -Encourage patient to use incentive spirometer -Continue antibiotics -DVT prophylaxis Lovenox and GI prophylaxis Pepcid Physician Music Arranger note has been reviewed by physician. Signing provider agrees with the documented findings, assessment, and plan of care. Objective - Vital Signs Vital signs: Vital Signs Temp 98.1 F 04/11/24 07:25 Pulse 85 04/11/24 11:50 Resp 16 04/11/24 11:50 BP 132/83 04/11/24 11:50 Pulse Ox 91 L 04/11/24 11:50 FiO2 Intake & Output 04/10/24 04/11/24 04/11/24 18:59 06:59 18:59 Output Total 0 Balance 0 Weight 79.379 kg Output: Drainage 0 Abdomen 0 Other: Voiding Method Toilet # Voids 2 2 # Bowel Movements 1 - Labs CBC & Chem 7: 04/11/24 05:24 04/11/24 05:24 Labs: Abnormal Lab Results - Last 24 Hours (Table) 04/11/24 04/11/24 Range/Units 05:24 05:24 WBC 12.17 H (4.50-10.00) X 10*3/uL RBC 3.90 L (4.10-5.20) X 10*6/uL Hgb 11.1 L (12.0-15.0) g/dL Hct 33.9 L (37.2-46.3) % RDW 14.6 H (11.5-14.5) % Plt Count 475 H (140-440) X 10*3/uL Immature Gran # 0.20 H (0.00-0.04) X 10*3/uL Neutrophils # 8.90 H (1.80-7.70) X 10*3/uL Monocytes # 1.15 H (0.20-1.00) X 10*3/uL Calcium 8.6 L (8.7-10.3) mg/dL
--- NOTE | 2024-04-11 14:18 | P.PN ---
Subjective Progress Note Date: 04/10/24 Principal diagnosis: Reason for follow-up is perforated appendicitis with abscess Patient is a 64-year-old female with a past medical history significant for varicose vein current everyday smoker presenting to the hospital with abdominal pain has been diagnosed with perforated appendicitis status post laparoscopic appendectomy and drainage of the abscess. On today's evaluation that is 04/10/2024, the patient continues to be afebrile, the patient is on room air and breathing comfortably, the Pt denies having any chest pain or cough, the patient did have some nausea but no vomiting still complaining of abdominal pain and no significant bowel movement. Patient white count up to 13.36, creatinine 0.6, patient have a CT abdominal pelvis with several fluid collection question of seroma versus infection Objective - Vital Signs Vital signs: Vital Signs Temp 97.7 F 04/10/24 07:18 Pulse 86 04/10/24 07:18 Resp 18 04/10/24 07:18 BP 121/74 04/10/24 07:18 Pulse Ox 90 L 04/10/24 07:18 FiO2 Intake & Output 04/09/24 04/10/24 04/10/24 18:59 06:59 18:59 Output Total 10 20 Balance -10 -20 Output: Drainage 10 20 Abdomen 10 20 Other: Voiding Method Toilet Toilet # Voids 3 3 - Exam GENERAL DESCRIPTION: An elderly female lying in bed in no distress RESPIRATORY SYSTEM: Unlabored breathing , decreased breath sounds at bases HEART: S1 S2 regular rate and rhythm , ABDOMEN: Soft , mild tenderness EXTREMITIES: No edema feet - Labs CBC & Chem 7: 04/11/24 05:24 04/11/24 05:24 Labs: Abnormal Lab Results - Last 24 Hours (Table) 04/10/24 04/10/24 Range/Units 05:16 05:16 WBC 13.36 H (4.50-10.00) X 10*3/uL RBC 3.98 L (4.10-5.20) X 10*6/uL Hgb 11.2 L (12.0-15.0) g/dL Hct 34.4 L (37.2-46.3) % Immature Gran # 0.22 H (0.00-0.04) X 10*3/uL Neutrophils # 9.60 H (1.80-7.70) X 10*3/uL Monocytes # 1.15 H (0.20-1.00) X 10*3/uL BUN 8.3 L (9.0-27.0) mg/dL Calcium 8.5 L (8.7-10.3) mg/dL Microbiology - Last 24 Hours (Table) 04/04/24 15:11 Blood Culture - Final Blood Assessment and Plan (1) Acute appendicitis with perforation and localized peritonitis Current Visit: Yes Status: Acute Code(s): K35.32 - AC APPENDICITIS W PERF, LOC PERITONITIS, & GANGR, W/O ABSCS SNOMED Code(s): 147652067 (2) Leukocytosis Current Visit: Yes Status: Acute Code(s): D72.829 - ELEVATED WHITE BLOOD CELL COUNT, UNSPECIFIED SNOMED Code(s): 048612232 Plan: 1patient presented to hospital with abdominal pain nausea and vomiting and this patient has been diagnosed with a perforated appendicitis with intra-abdominal abscess status post appendectomy and drainage of the abscess will need to cover for the enteric gram-negative both aerobes and anaerobes 2-blood cultures has been negative 3-patient did have CT abdominal pelvis with evidence of multiple fluid colle ction will benefit from a CT-guided aspiration and culture and continue with the Zosyn Dictation was produced using [employer] dictation software. please excuse any grammatical, word or spelling errors. Time with Patient: Less than 30
--- NOTE | 2024-04-11 14:19 | P.PN ---
Subjective Progress Note Date: 04/11/24 Principal diagnosis: Reason for follow-up is perforated appendicitis with abscess Patient is a 64-year-old female with a past medical history significant for varicose vein current everyday smoker presenting to the hospital with abdominal pain has been diagnosed with perforated appendicitis status post laparoscopic appendectomy and drainage of the abscess. Patient is status post CT-guided drainage of the intra-abdominal fluid collection completed on 04/11/2024. On today's evaluation that is 04/11/2024, Patient is afebrile patient is currently on room air and denies having any shortness of breath, the patient denies any chest pain or cough, the patient has been complaining of some nausea and abdominal pain postprocedure mention she did have a good bowel movement yesterday. Patient white count is down to 12.17, creatinine 0.6 Objective - Vital Signs Vital signs: Vital Signs Temp 98.1 F 04/11/24 07:25 Pulse 85 04/11/24 11:50 Resp 16 04/11/24 11:50 BP 132/83 04/11/24 11:50 Pulse Ox 91 L 04/11/24 11:50 FiO2 Intake & Output 04/10/24 04/11/24 04/11/24 18:59 06:59 18:59 Output Total 0 Balance 0 Weight 79.379 kg Output: Drainage 0 Abdomen 0 Other: Voiding Method Toilet # Voids 2 2 # Bowel Movements 1 - Exam GENERAL DESCRIPTION: An elderly female lying in bed in no distress RESPIRATORY SYSTEM: Unlabored breathing , decreased breath sounds at bases HEART: S1 S2 regular rate and rhythm , ABDOMEN: Soft , mild tenderness EXTREMITIES: No edema feet - Labs CBC & Chem 7: 04/11/24 05:24 04/11/24 05:24 Labs: Abnormal Lab Results - Last 24 Hours (Table) 04/11/24 04/11/24 Range/Units 05:24 05:24 WBC 12.17 H (4.50-10.00) X 10*3/uL RBC 3.90 L (4.10-5.20) X 10*6/uL Hgb 11.1 L (12.0-15.0) g/dL Hct 33.9 L (37.2-46.3) % RDW 14.6 H (11.5-14.5) % Plt Count 475 H (140-440) X 10*3/uL Immature Gran # 0.20 H (0.00-0.04) X 10*3/uL Neutrophils # 8.90 H (1.80-7.70) X 10*3/uL Monocytes # 1.15 H (0.20-1.00) X 10*3/uL Calcium 8.6 L (8.7-10.3) mg/dL Assessment and Plan (1) Acute appendicitis with perforation and localized peritonitis Current Visit: Yes Status: Acute Code(s): K35.32 - AC APPENDICITIS W PERF, LOC PERITONITIS, & GANGR, W/O ABSCS SNOMED Code(s): 779586255 (2) Leukocytosis Current Visit: Yes Status: Acute Code(s): D72.829 - ELEVATED WHITE BLOOD CELL COUNT, UNSPECIFIED SNOMED Code(s): 113385110 Plan: 1patient presented to hospital with abdominal pain nausea and vomiting and this patient has been diagnosed with a perforated appendicitis with intra-abdominal abscess status post appendectomy and drainage of the abscess will need to cover for the enteric gram-negative both aerobes and anaerobes 2-blood cultures has been negative,Patient did have CT abdominal pelvis with evidence of multiple fluid collection status post CT-guided aspiration and culture which will be followed continue with the Zosyn adjust antibiotic further on the basis of culture report Dictation was produced using [email or web address] dictation software. please excuse any grammatical, word or spelling errors. Time with Patient: Less than 30
--- NOTE | 2024-04-12 06:01 | P.PN ---
Subjective Progress Note Date: 04/11/[address] Funes Consult reason: Medical management, status post appendectomy History of present illness: This is a 64-year-old female who was recently admitted under surgical services and follows with Dr. Funes in the outpatient setting reporting having increased abdominal pain in the lower region that progressively got worse and started vomiting and came to the hospital for further evaluation. Patient was noted to have an acute appendicitis and is status post acute appendectomy. Patient notes that her appendix was perforated. Patient is afebrile although white count is elevated again at 16 and maintained on antibiotics with infectious disease following. Repeat blood cultures pending and current cultures are negative. Patient also currently maintained on 4 L of oxygen via nasal cannula and noted to be a significant amount of IV fluids. Will decrease the rate and x-ray of the abdomen is ordered and recommend chest x-ray. Patient reports he does not wear any oxygen outpatient. Patient also noted to have mildly elevated heart rate and will obtain EKG. Per nursing staff patient has not been getting up and moving postoperatively. Will consult PT/OT therapy and encouraged to increase activity as tolerated. Diet per surgery services. Recommend to continue with bowel regimen due to pain management. 04/04/2024 Patient is seen and evaluated in follow-up today currently sitting up in the chair reports some continued abdominal discomfort also reports a pressure and pain sensation when voiding. Will obtain a repeat urinalysis and also chest x- ray shows some mild volume overload recommend titrating the fluids down and will give IV Lasix and follow-up on repeat labs. Potassium slightly low at 3.1 and magnesium, 1.5 and being replaced per protocol. Patient continues on clear liquid diet per general surgery as patient was noted to have concerns of a postoperative ileus. Patient is not passing gas and has not had a bowel movement. Encourage the patient to get up and walk frequently around the halls. 04/05/2024 Patient seen in follow-up this morning reports to feeling somewhat improved. Patient is voiding but denies any passing of gas or bowel movement. Patient continues on clear liquids with general surgery following and has been instructed to increase activity as tolerated. Continue incentive spirometer use. Patient is currently weaning FiO2 as tolerated and is on 2 L. Patient does not wear oxygen outpatient. Patient is afebrile and white count is trending down. Infectious disease following and patient is maintained on antibiotics. 04/06/2024 Patient is seen in follow-up today feeling slightly improved and is currently sitting up in the chair on room air tolerating thus far. Encouraged incentive spirometer use at least 10 times every hour while awake and getting up and frequent walking. Patient reports passing some gas and was able to have a very scant amount of bowel movement yesterday and continued on bowel regimen along with clear liquids per surgery. White count is trending down and patient is continued on antibiotics with infectious disease following. 04/07/2024 Patient is seen in follow-up today currently up and walking the halls. Patient reports is having bowel movements and urinating with no difficulties. Patient has been weaned off maintaining 90% above on room air. Patient has been instructed to continue using incentive spirometer at least 10 times every hour while awake. Patient continues on clear liquid diet per general surgery and to be advanced for them. Patient is reporting she is feeling more hungry and tired of eating clear liquids. Patient is afebrile although white count is mildly elayne vated at 12 and is maintained on antibiotics with infectious disease following. Repeat labs ordered for a.m. 04/10/2024 Patient is seen in follow-up this morning followed by general surgery and infec tious disease. Patient white count is elevated and abdomen feels more distended and repeat CT abdomen is ordered and pending. Patient continues on antibiotics with infectious disease following and diet was recently advanced to low fiber diet. Patient was having bowel movements and passing gas. Patient is voiding with no difficulties. Patient has been using incentive spirometer and currently maintaining above percent on room air. Patient is afebrile with no reports of chest pain or shortness of breath. 04/11/2024 Patient seen and evaluated today undergoing drainage tube placement for abdo jose a abscess for fluid collection. Cultures ordered and pending with infectious disease following and will await finalized cultures to determine antibiotics. Patient reporting some continued bloating and abdominal discomfort. Patient is passing gas and tolerating diet and had a large bowel movement yesterday. Patient is afebrile and white count is trending down and will continue on current antibiotic regimen while awaiting cultures. No reports of chest pain or shortness of breath. Occasional nausea, no vomiting noted. Encouraged continued walks at least 3 times per day out in the halls and continued incentive spirometer use Review of systems: Constitutional: No reports of fatigue, fever, or chills Cardiovascular: No reports of chest pain or palpitations Respiratory: No reports of shortness of breath or cough GI: reports of intermittent nausea although improved, no reports of vomiting, patient had a bowel movement and reports is passing gas, reports feeling distended and bloated with discomfort : No reports of pain or burning with urination Neurovascular: reports of generalized weakness, continued abdominal pain All medications have been reviewed PHYSICAL EXAMINATION: GENERAL: The patient is alert and oriented x4, Well developed, elderly appearing, ill-appearing HEENT: Pupils are round and equally reacting to light. EOMI. no scleral icterus. No conjunctival pallor. Normocephalic, atraumatic. No pharyngeal erythema. No thyromegaly. CARDIOVASCULAR: S1 and S2 muffled PULMONARY: diminished breath sounds bilaterally with no wheezing or rhonchi noted. ABDOMEN: soft. tender on exam. . Appears distended, normoactive bowel sounds. No palpable organomegaly. MUSCULOSKELETAL: No joint swelling or deformity. EXTREMITIES: No cyanosis, clubbing, or pedal edema. NEUROLOGICAL: Gross neurological examination did not reveal any focal deficits. Diffuse weakness SKIN: No rashes. Assessment: Abdominal pain secondary to acute appendicitis with perforation, status post appendectomy Leukocytosis, secondary to above, trending down Postoperative ileus, improving Concerns for multiple fluid collections with concerns of abscess on CT abdomen, interventional radiology evaluated and placed to drainage tube 04/11/2024 Continued ongoing nicotine dependence Chronic obstructive pulmonary disease, not in exacerbation Acute hypoxic respiratory failure, secondary to volume overload, improved, currently maintaining 90% and above on room air Hypomagnesemia Hypokalemia GI prophylaxis DVT prophylaxis Full code Plan: Recommend to continue with current medications and management per general surgery. Patient is status post appendectomy maintained on antibiotics with infectious disease following also patient's white count remains elevated. Postoperative ileus appears improved although patient is having increased distention and bloating. Repeat CT abdomen suggestive of multiple fluid collections with concerns of abscess and infectious process not excluded. Interventional radiology consulted and is status post drainage tube placement today 04/11/2024. Cultures obtained and pending with infectious disease following and awaiting finalized cultures to adjust antibiotics Magnesium and potassium are improved and being replaced per protocol. Repeat la bs ordered for a.m. monitor white count. Patient is afebrile Continue to encourage incentive spirometer use at least 10 times every hour while awake, patient needs reencouragement and reinforcement frequently PT/OT therapy to evaluate as patient may need ECF on discharge for continued strength and mobility Encouraged to increase activity as tolerated with frequent walking in the halls We will continue to follow with general surgery during hospitalization. Thank you kindly for this consultation. The impression and plan of care has been dictated by Mirta Duke, nurse practitioner as directed. Dr. Blayne MD I have performed a history and examination and MDM of this patient, discussed the same with the dictator, and agree with the dictator's assessment and plan as written ,documented as a scribe. Based on total visit time, I have performed more than 50% of the visit. Any additional findings or plans will be noted. Objective - Vital Signs Vital signs: Vital Signs Temp 98.2 F 04/11/24 02:00 Pulse 89 04/11/24 02:00 Resp 16 04/11/24 02:00 BP 116/75 04/11/24 02:00 Pulse Ox 91 L 04/11/24 02:00 FiO2 Intake & Output 04/10/24 04/10/24 04/11/24 06:59 18:59 06:59 Output Total 20 0 Balance -20 0 Weight 79.379 kg Output: Drainage 20 0 Abdomen 20 0 Other: Voiding Method Toilet # Voids 3 2 # Bowel Movements 1 - Labs CBC & Chem 7: 04/11/24 05:24 04/11/24 05:24 Labs: Abnormal Lab Results - Last 24 Hours (Table) 04/10/24 04/10/24 Range/Units 05:16 05:16 WBC 13.36 H (4.50-10.00) X 10*3/uL RBC 3.98 L (4.10-5.20) X 10*6/uL Hgb 11.2 L (12.0-15.0) g/dL Hct 34.4 L (37.2-46.3) % Immature Gran # 0.22 H (0.00-0.04) X 10*3/uL Neutrophils # 9.60 H (1.80-7.70) X 10*3/uL Monocytes # 1.15 H (0.20-1.00) X 10*3/uL BUN 8.3 L (9.0-27.0) mg/dL Calcium 8.5 L (8.7-10.3) mg/dL
[2024-04-12 10:37] LABS: Basophils # (A) 0.06 X 10*3/uL (0.00-0.10); Basophils % (A) 0.4 %; Eosinophils # (A) 0.23 X 10*3/uL (0.04-0.35); Eosinophils % (A) 1.6 %; HCT 35.8 % (37.2-46.3); HGB 11.7 g/dL (12.0-15.0); Lymphocytes # (A) 1.96 X 10*3/uL (0.90-5.00); MCH 28.1 pg (27.0-32.0); MCHC 32.7 g/dL (32.0-37.0); MCV 85.9 FL (80.0-97.0); Mean Platelet Volume 9.7 FL (9.5-12.2); Monocytes # (A) 1.38 X 10*3/uL (0.20-1.00); Monocytes % (A) 9.8 %; NRBC Per 100 WBC 0 X 10*3/uL (0.00-0.01); Neutrophils # (A) 10.24 X 10*3/uL (1.80-7.70); Neutrophils % (A) 73.1 %; Platelet Count 570 X 10*3/uL (140-440); RBC 4.17 X 10*6/uL (4.10-5.20); RDW 14.6 % (11.5-14.5); WBC 14.03 X 10*3/uL (4.50-10.00)
--- NOTE | 2024-04-12 12:36 | P.PN ---
Subjective Progress Note Date: 04/12/24 Principal diagnosis: Reason for follow-up is perforated appendicitis with abscess Patient is a 64-year-old female with a past medical history significant for varicose vein current everyday smoker presenting to the hospital with abdominal pain has been diagnosed with perforated appendicitis status post laparoscopic appendectomy and drainage of the abscess. Patient is status post CT-guided drainage of the intra-abdominal fluid collection completed on 04/11/2024. On today's evaluation that is 04/12/2024, patient has been afebrile, patient is breathing comfortably and is currently on room air, patient denies having any significant cough no chest pain shortness of breath, patient denies nausea vomiting or abdominal discomfort has decreased in intensity did have 2 small bowel movement. Patient white count is 14.03 Creatinine 0.6 blood cultures currently pending Objective - Vital Signs Vital signs: Vital Signs Temp 98.3 F 04/12/24 07:08 Pulse 86 04/12/24 07:08 Resp 17 04/12/24 07:08 BP 124/77 04/12/24 07:08 Pulse Ox 93 L 04/12/24 08:43 FiO2 Intake & Output 04/11/24 04/12/24 04/12/24 18:59 06:59 18:59 Output Total 28 Balance -28 Output: Drainage 28 Abdomen 3 Lower Sacrum 25 Other: Voiding Method Toilet Toilet # Voids 4 2 - Exam GENERAL DESCRIPTION: An elderly female lying in bed in no distress RESPIRATORY SYSTEM: Unlabored breathing , decreased breath sounds at bases HEART: S1 S2 regular rate and rhythm , ABDOMEN: Soft , mild tenderness EXTREMITIES: No edema feet - Labs CBC & Chem 7: 04/12/24 06:20 04/11/24 05:24 Labs: Abnormal Lab Results - Last 24 Hours (Table) 04/12/24 Range/Units 06:20 WBC 14.03 H (4.50-10.00) X 10*3/uL Hgb 11.7 L (12.0-15.0) g/dL Hct 35.8 L (37.2-46.3) % RDW 14.6 H (11.5-14.5) % Plt Count 570 H (140-440) X 10*3/uL Immature Gran # 0.16 H (0.00-0.04) X 10*3/uL Neutrophils # 10.24 H (1.80-7.70) X 10*3/uL Monocytes # 1.38 H (0.20-1.00) X 10*3/uL Assessment and Plan (1) Acute appendicitis with perforation and localized peritonitis Current Visit: Yes Status: Acute Code(s): K35.32 - AC APPENDICITIS W PERF, LOC PERITONITIS, & GANGR, W/O ABSCS SNOMED Code(s): 278920661 (2) Leukocytosis Current Visit: Yes Status: Acute Code(s): D72.829 - ELEVATED WHITE BLOOD CELL COUNT, UNSPECIFIED SNOMED Code(s): 484215316 Plan: 1patient presented to hospital with abdominal pain nausea and vomiting and this patient has been diagnosed with a perforated appendicitis with intra-abdominal abscess status post appendectomy and drainage of the abscess will need to cover for the enteric gram-negative both aerobes and anaerobes 2-blood cultures has been negative,Patient did have CT abdominal pelvis with evidence of multiple fluid collection status post CT-guided aspiration and culture which are currently pending 3patient to continue with the Zosyn while waiting for the culture to finalize Dictation was produced using [employer] dictation software. please excuse any grammatical, word or spelling errors. Time with Patient: Less than 30
--- NOTE | 2024-04-12 12:58 | P.PN ---
Subjective Progress Note Date: 04/12/24 CHIEF COMPLAINT: Appendicitis HISTORY OF PRESENT ILLNESS: Patient is postop day #11 status post laparoscopic appendectomy with drainage of abscess. Patient status post IR drain placement. Patient reports some relief in her abdominal pain. She denies any nausea or vomiting. She is having bowel movements. Drain output 25 mL cloudy serous drainage. Afebrile. WBC is up from 12-14. SHELL drain with 3 mL purulent drainage PHYSICAL EXAM: VITAL SIGNS: Reviewed. GENERAL: Well-developed in no acute distress. ABDOMEN: Soft. distended. Decreased tenderness right lower quadrant. SHELL drain with purulent drainage NEUROLOGIC: Alert and oriented. Cranial nerves II through XII grossly intact. ASSESSMENT: 1. Acute perforated appendicitis 2. Postoperative ileus can be an expected complication after surgery 3. Fluid collection in the pelvis status post drain placement PLAN: -Continue antibiotics -Continue to monitor CBC -Continue low fiber diet -Encourage patient to ambulate -Encourage patient to use incentive spirometer -DVT prophylaxis Lovenox and GI prophylaxis Pepcid Physician Night Clerk Auditor note has been reviewed by physician. Signing provider agrees with the documented findings, assessment, and plan of care. Objective - Vital Signs Vital signs: Vital Signs Temp 98.3 F 04/12/24 07:08 Pulse 86 04/12/24 07:08 Resp 17 04/12/24 07:08 BP 124/77 04/12/24 07:08 Pulse Ox 93 L 04/12/24 08:43 FiO2 Intake & Output 04/11/24 04/12/24 04/12/24 18:59 06:59 18:59 Output Total 28 Balance -28 Output: Drainage 28 Abdomen 3 Lower Sacrum 25 Other: Voiding Method Toilet Toilet # Voids 4 2 - Labs CBC & Chem 7: 04/12/24 06:20 04/11/24 05:24 Labs: Abnormal Lab Results - Last 24 Hours (Table) 04/12/24 Range/Units 06:20 WBC 14.03 H (4.50-10.00) X 10*3/uL Hgb 11.7 L (12.0-15.0) g/dL Hct 35.8 L (37.2-46.3) % RDW 14.6 H (11.5-14.5) % Plt Count 570 H (140-440) X 10*3/uL Immature Gran # 0.16 H (0.00-0.04) X 10*3/uL Neutrophils # 10.24 H (1.80-7.70) X 10*3/uL Monocytes # 1.38 H (0.20-1.00) X 10*3/uL
[2024-04-12] MEDS: FUROSEMIDE 10 MG/ML 4 ML VIAL IV STA (13:44)
--- NOTE | 2024-04-13 05:49 | P.PN ---
Subjective Progress Note Date: 04/12/[address] Funes Consult reason: Medical management, status post appendectomy History of present illness: This is a 64-year-old female who was recently admitted under surgical services and follows with Dr. Funes in the outpatient setting reporting having increased abdominal pain in the lower region that progressively got worse and started vomiting and came to the hospital for further evaluation. Patient was noted to have an acute appendicitis and is status post acute appendectomy. Patient notes that her appendix was perforated. Patient is afebrile although white count is elevated again at 16 and maintained on antibiotics with infectious disease following. Repeat blood cultures pending and current cultures are negative. Patient also currently maintained on 4 L of oxygen via nasal cannula and noted to be a significant amount of IV fluids. Will decrease the rate and x-ray of the abdomen is ordered and recommend chest x-ray. Patient reports he does not wear any oxygen outpatient. Patient also noted to have mildly elevated heart rate and will obtain EKG. Per nursing staff patient has not been getting up and moving postoperatively. Will consult PT/OT therapy and encouraged to increase activity as tolerated. Diet per surgery services. Recommend to continue with bowel regimen due to pain management. 04/04/2024 Patient is seen and evaluated in follow-up today currently sitting up in the chair reports some continued abdominal discomfort also reports a pressure and pain sensation when voiding. Will obtain a repeat urinalysis and also chest x- ray shows some mild volume overload recommend titrating the fluids down and will give IV Lasix and follow-up on repeat labs. Potassium slightly low at 3.1 and magnesium, 1.5 and being replaced per protocol. Patient continues on clear liquid diet per general surgery as patient was noted to have concerns of a postoperative ileus. Patient is not passing gas and has not had a bowel movement. Encourage the patient to get up and walk frequently around the halls. 04/05/2024 Patient seen in follow-up this morning reports to feeling somewhat improved. Patient is voiding but denies any passing of gas or bowel movement. Patient continues on clear liquids with general surgery following and has been instructed to increase activity as tolerated. Continue incentive spirometer use. Patient is currently weaning FiO2 as tolerated and is on 2 L. Patient does not wear oxygen outpatient. Patient is afebrile and white count is trending down. Infectious disease following and patient is maintained on antibiotics. 04/06/2024 Patient is seen in follow-up today feeling slightly improved and is currently sitting up in the chair on room air tolerating thus far. Encouraged incentive spirometer use at least 10 times every hour while awake and getting up and frequent walking. Patient reports passing some gas and was able to have a very scant amount of bowel movement yesterday and continued on bowel regimen along with clear liquids per surgery. White count is trending down and patient is continued on antibiotics with infectious disease following. 04/07/2024 Patient is seen in follow-up today currently up and walking the halls. Patient reports is having bowel movements and urinating with no difficulties. Patient has been weaned off maintaining 90% above on room air. Patient has been instructed to continue using incentive spirometer at least 10 times every hour while awake. Patient continues on clear liquid diet per general surgery and to be advanced for them. Patient is reporting she is feeling more hungry and tired of eating clear liquids. Patient is afebrile although white count is mildly elayne vated at 12 and is maintained on antibiotics with infectious disease following. Repeat labs ordered for a.m. 04/10/2024 Patient is seen in follow-up this morning followed by general surgery and infec tious disease. Patient white count is elevated and abdomen feels more distended and repeat CT abdomen is ordered and pending. Patient continues on antibiotics with infectious disease following and diet was recently advanced to low fiber diet. Patient was having bowel movements and passing gas. Patient is voiding with no difficulties. Patient has been using incentive spirometer and currently maintaining above percent on room air. Patient is afebrile with no reports of chest pain or shortness of breath. 04/11/2024 Patient seen and evaluated today undergoing drainage tube placement for abdo jose a abscess for fluid collection. Cultures ordered and pending with infectious disease following and will await finalized cultures to determine antibiotics. Patient reporting some continued bloating and abdominal discomfort. Patient is passing gas and tolerating diet and had a large bowel movement yesterday. Patient is afebrile and white count is trending down and will continue on current antibiotic regimen while awaiting cultures. No reports of chest pain or shortness of breath. Occasional nausea, no vomiting noted. Encouraged continued walks at least 3 times per day out in the halls and continued incentive spirometer use 04/12/2024 Patient is seen in follow-up today reports to feeling bloated with abdominal distention. Patient reports she is having bowel movements and passing gas. Patient did have a drainage tube placed by interventional radiology for to abdominal abscess cultures thus far negative. Infectious disease following and patient is maintained on IV antibiotics. Patient is afebrile and white count is trending down, recommend follow-up labs in the a.m. Encouraged incentive spirometer use and continued frequent walking Review of systems: Constitutional: No reports of fatigue, fever, or chills Cardiovascular: No reports of chest pain or palpitations Respiratory: No reports of shortness of breath or cough GI: reports of intermittent nausea although improved, no reports of vomiting, patient had a bowel movement and reports is passing gas, reports feeling distended and bloated with discomfort : No reports of pain or burning with urination Neurovascular: reports of generalized weakness, continued abdominal pain All medications have been reviewed PHYSICAL EXAMINATION: GENERAL: The patient is alert and oriented x4, Well developed, elderly a ppearing, ill-appearing HEENT: Pupils are round and equally reacting to light. EOMI. no scleral icterus. No conjunctival pallor. Normocephalic, atraumatic. No pharyngeal erythema. No thyromegaly. CARDIOVASCULAR: S1 and S2 muffled PULMONARY: diminished breath sounds bilaterally with no wheezing or rhonchi noted. ABDOMEN: soft. tender on exam. . Appears distended, normoactive bowel sounds. No palpable organomegaly. MUSCULOSKELETAL: No joint swelling or deformity. EXTREMITIES: No cyanosis, clubbing, or pedal edema. NEUROLOGICAL: Gross neurological examination did not reveal any focal deficits. Diffuse weakness SKIN: No rashes. Assessment: Abdominal pain secondary to acute appendicitis with perforation, status post appendectomy Leukocytosis, secondary to above, trending down Postoperative ileus, improved Concerns for multiple fluid collections with concerns of abscess on CT abdomen, interventional radiology evaluated and placed to drainage tube 04/11/2024 Continued ongoing nicotine dependence Chronic obstructive pulmonary disease, not in exacerbation Acute hypoxic respiratory failure, secondary to volume overload, improved, currently maintaining 90% and above on room air Hypomagnesemia Hypokalemia GI prophylaxis DVT prophylaxis Full code Plan: Recommend to continue with current medications and management per general surgery. Patient is status post appendectomy maintained on antibiotics with infectious disease following also patient's white count remains elevated. Postoperative ileus appears improved although patient is having increased distention and bloating. Repeat CT abdomen suggestive of multiple fluid collections with concerns of abscess and infectious process not excluded. Interventional radiology consulted and is status post drainage tube placement 04/11/2024. Cultures obtained and negative thus far, finalized is pending with infectious disease following. Awaiting finalized cultures to adjust antibiotics Magnesium and potassium are improved and being replaced per protocol. Repeat labs ordered for a.m. monitor white count. Patient is afebrile Continue to encourage incentive spirometer use at least 10 times every hour while awake, patient needs reencouragement and reinforcement frequently Encouraged to increase activity as tolerated with frequent walking in the halls We will continue to follow with general surgery during hospitalization. Thank you kindly for this consultation. The impression and plan of care has been dictated by Mirta Duke, nurse practitioner as directed. Dr. Blayne MD I have performed a history and examination and MDM of this patient, discussed the same with the dictator, and agree with the dictator's assessment and plan as written ,documented as a scribe. Based on total visit time, I have performed more than 50% of the visit. Any additional findings or plans will be noted. Objective - Vital Signs Vital signs: Vital Signs Temp 97.9 F 04/13/24 01:34 Pulse 85 04/13/24 01:34 Resp 17 04/13/24 01:34 BP 113/70 04/13/24 01:34 Pulse Ox 95 04/13/24 01:34 FiO2 Intake & Output 04/12/24 04/12/24 04/13/24 06:59 18:59 06:59 Output Total 28 Balance -28 Output: Drainage 28 Abdomen 3 Lower Sacrum 25 Other: Voiding Method Toilet # Voids 2 5 1 # Bowel Movements 5 - Labs CBC & Chem 7: 04/12/24 06:20 04/11/24 05:24 Labs: Abnormal Lab Results - Last 24 Hours (Table) 04/12/24 Range/Units 06:20 WBC 14.03 H (4.50-10.00) X 10*3/uL Hgb 11.7 L (12.0-15.0) g/dL Hct 35.8 L (37.2-46.3) % RDW 14.6 H (11.5-14.5) % Plt Count 570 H (140-440) X 10*3/uL Immature Gran # 0.16 H (0.00-0.04) X 10*3/uL Neutrophils # 10.24 H (1.80-7.70) X 10*3/uL Monocytes # 1.38 H (0.20-1.00) X 10*3/uL Microbiology - Last 24 Hours (Table) 04/11/24 11:25 Gram Stain - Preliminary Aspirate Body Fluid Culture - Preliminary
--- NOTE | 2024-04-13 15:43 | P.PN ---
Subjective Progress Note Date: 04/13/24 CHIEF COMPLAINT: Appendicitis HISTORY OF PRESENT ILLNESS: Patient is postop day #12 status post laparoscopic appendectomy with drainage of abscess. Patient status post IR drain placement. Patient continues to feel better. Patient reports she is having multiple bowel movements that are loose. She has refused the Colace. WBC 14 PHYSICAL EXAM: VITAL SIGNS: Reviewed. GENERAL: Well-developed in no acute distress. ABDOMEN: Soft. Less distended. SHELL drain with very minimal purulent output. IR drain with 5 mL purulent output NEUROLOGIC: Alert and oriented. Cranial nerves II through XII grossly intact. ASSESSMENT: 1. Acute perforated appendicitis 2. Postoperative ileus can be an expected complication after surgery improved 3. Fluid collection in the pelvis status post drain placement PLAN: -Continue antibiotics -Continue to monitor CBC -Awaiting culture results -Discontinue Reglan and Colace due to loose stools -Continue low fiber diet -Encourage patient to ambulate -Encourage patient to use incentive spirometer -DVT prophylaxis Lovenox and GI prophylaxis Pepcid Physician Crew Leader Gluing note has been reviewed by physician. Signing provider agrees with the documented findings, assessment, and plan of care. Objective - Vital Signs Vital signs: Vital Signs Temp 98.5 F 04/13/24 13:14 Pulse 80 04/13/24 13:14 Resp 15 04/13/24 13:14 BP 119/81 04/13/24 13:14 Pulse Ox 93 L 04/13/24 13:14 FiO2 Intake & Output 04/12/24 04/13/24 04/13/24 18:59 06:59 18:59 Output Total 5 Balance -5 Output: Drainage 5 Lower Sacrum 5 Other: Voiding Method Toilet # Voids 5 1 # Bowel Movements 5 - Labs CBC & Chem 7: 04/12/24 06:20 04/11/24 05:24 Labs: Microbiology - Last 24 Hours (Table) 04/11/24 11:25 Gram Stain - Preliminary Aspirate Body Fluid Culture - Preliminary
--- NOTE | 2024-04-13 21:08 | P.PN ---
Subjective Progress Note Date: 04/13/24 Principal diagnosis: Reason for follow-up is perforated appendicitis with abscess Patient is a 64-year-old female with a past medical history significant for varicose vein current everyday smoker presenting to the hospital with abdominal pain has been diagnosed with perforated appendicitis status post laparoscopic appendectomy and drainage of the abscess. Patient is status post CT-guided drainage of the intra-abdominal fluid collection completed on 04/11/2024. On today's evaluation that is 04/13/2024, Patient is afebrile this morning patient denies having any chest pain shortness of breath or cough, the patient is breathing comfortably and currently on room air, patient abdominal pain has decreased intensity denies any nausea vomiting and did have a bowel movement. The patient white count is 14.03 creatinine 0.6 cultures are currently pending Objective - Vital Signs Vital signs: Vital Signs Temp 98.5 F 04/13/24 13:14 Pulse 80 04/13/24 13:14 Resp 15 04/13/24 13:14 BP 119/81 04/13/24 13:14 Pulse Ox 93 L 04/13/24 13:14 FiO2 Intake & Output 04/12/24 04/13/24 04/13/24 18:59 06:59 18:59 Output Total 5 Balance -5 Output: Drainage 5 Lower Sacrum 5 Other: Voiding Method Toilet # Voids 5 1 # Bowel Movements 5 - Exam GENERAL DESCRIPTION: An elderly female lying in bed in no distress RESPIRATORY SYSTEM: Unlabored breathing , decreased breath sounds at bases HEART: S1 S2 regular rate and rhythm , ABDOMEN: Soft , mild tenderness EXTREMITIES: No edema feet - Labs CBC & Chem 7: 04/12/24 06:20 04/11/24 05:24 Labs: Microbiology - Last 24 Hours (Table) 04/11/24 11:25 Gram Stain - Preliminary Aspirate Body Fluid Culture - Preliminary Assessment and Plan (1) Acute appendicitis with perforation and localized peritonitis Current Visit: Yes Status: Acute Code(s): K35.32 - AC APPENDICITIS W PERF, LOC PERITONITIS, & GANGR, W/O ABSCS SNOMED Code(s): 237241978 (2) Leukocytosis Current Visit: Yes Status: Acute Code(s): D72.829 - ELEVATED WHITE BLOOD CELL COUNT, UNSPECIFIED SNOMED Code(s): 861291631 Plan: 1patient presented to hospital with abdominal pain nausea and vomiting and this patient has been diagnosed with a perforated appendicitis with intra-abdominal abscess status post appendectomy and drainage of the abscess will need to cover for the enteric gram-negative both aerobes and anaerobes 2-blood cultures has been negative,Patient did have CT abdominal pelvis with evidence of multiple fluid collection status post CT-guided aspiration and culture which are currently pending 3patient did have shown some clinical improvement however the white count slightly up need to monitor closely repeat CBC in a.m. will continue with the [employer] Dictation was produced using [employer] dictation software. please excuse any grammatical, word or spelling errors. Time with Patient: Less than 30
--- NOTE | 2024-04-14 05:38 | P.PN ---
Subjective Progress Note Date: 04/13/[address] Funes Consult reason: Medical management, status post appendectomy History of present illness: This is a 64-year-old female who was recently admitted under surgical services and follows with Dr. Funes in the outpatient setting reporting having increased abdominal pain in the lower region that progressively got worse and started vomiting and came to the hospital for further evaluation. Patient was noted to have an acute appendicitis and is status post acute appendectomy. Patient notes that her appendix was perforated. Patient is afebrile although white count is elevated again at 16 and maintained on antibiotics with infectious disease following. Repeat blood cultures pending and current cultures are negative. Patient also currently maintained on 4 L of oxygen via nasal cannula and noted to be a significant amount of IV fluids. Will decrease the rate and x-ray of the abdomen is ordered and recommend chest x-ray. Patient reports he does not wear any oxygen outpatient. Patient also noted to have mildly elevated heart rate and will obtain EKG. Per nursing staff patient has not been getting up and moving postoperatively. Will consult PT/OT therapy and encouraged to increase activity as tolerated. Diet per surgery services. Recommend to continue with bowel regimen due to pain management. 04/04/2024 Patient is seen and evaluated in follow-up today currently sitting up in the chair reports some continued abdominal discomfort also reports a pressure and pain sensation when voiding. Will obtain a repeat urinalysis and also chest x- ray shows some mild volume overload recommend titrating the fluids down and will give IV Lasix and follow-up on repeat labs. Potassium slightly low at 3.1 and magnesium, 1.5 and being replaced per protocol. Patient continues on clear liquid diet per general surgery as patient was noted to have concerns of a postoperative ileus. Patient is not passing gas and has not had a bowel movement. Encourage the patient to get up and walk frequently around the halls. 04/05/2024 Patient seen in follow-up this morning reports to feeling somewhat improved. Patient is voiding but denies any passing of gas or bowel movement. Patient continues on clear liquids with general surgery following and has been instructed to increase activity as tolerated. Continue incentive spirometer use. Patient is currently weaning FiO2 as tolerated and is on 2 L. Patient does not wear oxygen outpatient. Patient is afebrile and white count is trending down. Infectious disease following and patient is maintained on antibiotics. 04/06/2024 Patient is seen in follow-up today feeling slightly improved and is currently sitting up in the chair on room air tolerating thus far. Encouraged incentive spirometer use at least 10 times every hour while awake and getting up and frequent walking. Patient reports passing some gas and was able to have a very scant amount of bowel movement yesterday and continued on bowel regimen along with clear liquids per surgery. White count is trending down and patient is continued on antibiotics with infectious disease following. 04/07/2024 Patient is seen in follow-up today currently up and walking the halls. Patient reports is having bowel movements and urinating with no difficulties. Patient has been weaned off maintaining 90% above on room air. Patient has been instructed to continue using incentive spirometer at least 10 times every hour while awake. Patient continues on clear liquid diet per general surgery and to be advanced for them. Patient is reporting she is feeling more hungry and tired of eating clear liquids. Patient is afebrile although white count is mildly elayne vated at 12 and is maintained on antibiotics with infectious disease following. Repeat labs ordered for a.m. 04/10/2024 Patient is seen in follow-up this morning followed by general surgery and infec tious disease. Patient white count is elevated and abdomen feels more distended and repeat CT abdomen is ordered and pending. Patient continues on antibiotics with infectious disease following and diet was recently advanced to low fiber diet. Patient was having bowel movements and passing gas. Patient is voiding with no difficulties. Patient has been using incentive spirometer and currently maintaining above percent on room air. Patient is afebrile with no reports of chest pain or shortness of breath. 04/11/2024 Patient seen and evaluated today undergoing drainage tube placement for abdo jose a abscess for fluid collection. Cultures ordered and pending with infectious disease following and will await finalized cultures to determine antibiotics. Patient reporting some continued bloating and abdominal discomfort. Patient is passing gas and tolerating diet and had a large bowel movement yesterday. Patient is afebrile and white count is trending down and will continue on current antibiotic regimen while awaiting cultures. No reports of chest pain or shortness of breath. Occasional nausea, no vomiting noted. Encouraged continued walks at least 3 times per day out in the halls and continued incentive spirometer use 04/12/2024 Patient is seen in follow-up today reports to feeling bloated with abdominal distention. Patient reports she is having bowel movements and passing gas. Patient did have a drainage tube placed by interventional radiology for to abdominal abscess cultures thus far negative. Infectious disease following and patient is maintained on IV antibiotics. Patient is afebrile and white count is trending down, recommend follow-up labs in the a.m. Encouraged incentive spirometer use and continued frequent walking 04/13/2024 Patient is seen in follow-up today reports to having multiple bowel movements that are loose and occasionally a little more formed. Stool softener discontinued and patient is maintained on low fiber diet. Patient continues to have bloating distention although reports feels slightly improved. Patient continues on antibiotics with infectious disease following white count is elevated recommend follow-up CBC in the a.m. as it went up to 14 today. Patient is afebrile. Patient is using incentive spirometer and has been up and walking frequently. Review of systems: Constitutional: No reports of fatigue, fever, or chills Cardiovascular: No reports of chest pain or palpitations Respiratory: No reports of shortness of breath or cough GI: reports of intermittent nausea although improved, no reports of vomiting, patient had multiple loose bowel movements and reports is passing gas, reports feeling distended and bloated with discomfort : No reports of pain or burning with urination Neurovascular: reports of generalized weakness, continued abdominal pain All medications have been reviewed PHYSICAL EXAMINATION: GENERAL: The patient is alert and oriented x4, Well developed, elderly appearing, ill-appearing HEENT: Pupils are round and equally reacting to light. EOMI. no scleral icterus. No conjunctival pallor. Normocephalic, atraumatic. No pharyngeal erythema. No thyromegaly. CARDIOVASCULAR: S1 and S2 muffled PULMONARY: diminished breath sounds bilaterally with no wheezing or rhonchi noted. ABDOMEN: soft. tender on exam. . Appears distended, normoactive bowel sounds. No palpable organomegaly. MUSCULOSKELETAL: No joint swelling or deformity. EXTREMITIES: No cyanosis, clubbing, or pedal edema. NEUROLOGICAL: Gross neurological examination did not reveal any focal deficits. Diffuse weakness SKIN: No rashes. Assessment: Abdominal pain secondary to acute appendicitis with perforation, status post appendectomy Leukocytosis, secondary to above, trending down Postoperative ileus, improved Concerns for multiple fluid collections with concerns of abscess on CT abdomen, interventional radiology evaluated and placed to drainage tube 04/11/2024 Continued ongoing nicotine dependence Chronic obstructive pulmonary disease, not in exacerbation Acute hypoxic respiratory failure, secondary to volume overload, improved, currently maintaining 90% and above on room air Hypomagnesemia, improved after replacement Hypokalemia, improved after replacement GI prophylaxis DVT prophylaxis Full code Plan: Recommend to continue with current medications and management per general surgery. Patient is status post appendectomy maintained on antibiotics with infectious disease following also patient's white count remains elevated. WBC 14 today maintained on antibiotics recommending follow-up CBC. Patient remains afebrile Postoperative ileus appears improved although patient is having increased distention and bloating. Repeat CT abdomen suggestive of multiple fluid collections with concerns of abscess and infectious process not excluded. Interventional radiology consulted and is status post drainage tube placement 04/11/2024. Cultures obtained and negative thus far, finalized is pending with infectious disease following. Awaiting finalized cultures to adjust antibiotics Patient is now having multiple bowel movements and Reglan and Colace discontinued Continue to encourage incentive spirometer use at least 10 times every hour while awake, patient needs reencouragement and reinforcement frequently Encouraged to increase activity as tolerated with frequent walking in the halls We will continue to follow with general surgery during hospitalization. Thank you kindly for this consultation. The impression and plan of care has been dictated by Mirta Duke, nurse practitioner as directed. Dr. Jeanette MD I have performed a history and examination and MDM of this patient, discussed the same with the dictator, and agree with the dictator's assessment and plan a s written ,documented as a scribe. Based on total visit time, I have performed more than 50% of the visit. Any additional findings or plans will be noted. Objective - Vital Signs Vital signs: Vital Signs Temp 97.3 F L 04/14/24 01:35 Pulse 87 04/14/24 01:35 Resp 17 04/14/24 01:35 BP 112/69 04/14/24 01:35 Pulse Ox 95 04/14/24 01:35 FiO2 Intake & Output 04/13/24 04/13/24 04/14/24 06:59 18:59 06:59 Output Total 5 Balance -5 Output: Drainage 5 Lower Sacrum 5 Other: Voiding Method Toilet # Voids 1 3 1 - Labs CBC & Chem 7: 04/12/24 06:20 04/11/24 05:24 Labs: Microbiology - Last 24 Hours (Table) 04/11/24 11:25 Anaerobic Culture - Preliminary Aspirate 04/11/24 11:25 Gram Stain - Preliminary Aspirate Body Fluid Culture - Preliminary
[2024-04-14 06:13] LABS: Basophils % (A) 0 %; Eosinophils # (A) 0.3 k/uL (0-0.7); Eosinophils % (A) 4 %; HCT 38.6 % (34.0-46.0); HGB 12.5 gm/dL (11.4-16.0); Hypochromasia Slight; Lymphocytes # (A) 1.7 k/uL (1.0-4.8); Lymphocytes % (A) 20 %; MCH 28.5 pg (25.0-35.0); MCHC 32.3 g/dL (31.0-37.0); MCV 88.3 fL (80.0-100.0); Mean Platelet Volume 7.4; Monocytes % (A) 12 %; Neutrophils # (A) 5.4 k/uL (1.3-7.7); Neutrophils % (A) 63 %; Platelet Count 734 k/uL (150-450); RBC 4.37 m/uL (3.80-5.40); RDW 13.5 % (11.5-15.5); WBC 8.5 k/uL (3.8-10.6)
--- NOTE | 2024-04-14 17:00 | P.PN ---
Subjective Progress Note Date: 04/14/24 Principal diagnosis: Appendicitis Patient sitting up in the chair. Tolerating diet. Appetite diminished. No vomiting. Some nausea earlier today. She has had 2 bowel movements today. White blood cell count yesterday normal. She is afebrile. SHELL drain serous, CAT scan guided drain purulent, cultures remain negative from CAT scan drain. Objective - Vital Signs Vital signs: Vital Signs Temp 97.5 F L 04/14/24 12:54 Pulse 92 04/14/24 12:54 Resp 17 04/14/24 12:54 BP 105/69 04/14/24 12:54 Pulse Ox 91 L 04/14/24 12:54 FiO2 Intake & Output 04/13/24 04/14/24 04/14/24 18:59 06:59 18:59 Other: Voiding Method Toilet # Voids 3 1 2 # Bowel Movements 1 - Exam Abdomen: Soft, distended, mild tenderness, incisions clean and dry - Labs CBC & Chem 7: 04/14/24 05:08 04/11/24 05:24 Labs: Abnormal Lab Results - Last 24 Hours (Table) 04/14/24 Range/Units 05:08 Plt Count 734 H (150-450) k/uL Microbiology - Last 24 Hours (Table) 04/11/24 11:25 Anaerobic Culture - Preliminary Aspirate 04/11/24 11:25 Gram Stain - Preliminary Aspirate Body Fluid Culture - Preliminary Assessment and Plan (1) Acute appendicitis with perforation and localized peritonitis Narrative/Plan: 64-year-old female with perforated appendicitis. Continue antibiotics. Follow cultures from recent CT-guided drain. Continue diet. Ambulate. Current Visit: Yes Status: Acute Code(s): K35.32 - AC APPENDICITIS W PERF, LOC PERITONITIS, & GANGR, W/O ABSCS SNOMED Code(s): 214750949
--- NOTE | 2024-04-15 07:28 | P.PN ---
Subjective Progress Note Date: 04/14/[address] Funes Consult reason: Medical management, status post appendectomy History of present illness: This is a 64-year-old female who was recently admitted under surgical services and follows with Dr. Funes in the outpatient setting reporting having increased abdominal pain in the lower region that progressively got worse and started vomiting and came to the hospital for further evaluation. Patient was noted to have an acute appendicitis and is status post acute appendectomy. Patient notes that her appendix was perforated. Patient is afebrile although white count is elevated again at 16 and maintained on antibiotics with infectious disease following. Repeat blood cultures pending and current cultures are negative. Patient also currently maintained on 4 L of oxygen via nasal cannula and noted to be a significant amount of IV fluids. Will decrease the rate and x-ray of the abdomen is ordered and recommend chest x-ray. Patient reports he does not wear any oxygen outpatient. Patient also noted to have mildly elevated heart rate and will obtain EKG. Per nursing staff patient has not been getting up and moving postoperatively. Will consult PT/OT therapy and encouraged to increase activity as tolerated. Diet per surgery services. Recommend to continue with bowel regimen due to pain management. 04/04/2024 Patient is seen and evaluated in follow-up today currently sitting up in the chair reports some continued abdominal discomfort also reports a pressure and pain sensation when voiding. Will obtain a repeat urinalysis and also chest x- ray shows some mild volume overload recommend titrating the fluids down and will give IV Lasix and follow-up on repeat labs. Potassium slightly low at 3.1 and magnesium, 1.5 and being replaced per protocol. Patient continues on clear liquid diet per general surgery as patient was noted to have concerns of a postoperative ileus. Patient is not passing gas and has not had a bowel movement. Encourage the patient to get up and walk frequently around the halls. 04/05/2024 Patient seen in follow-up this morning reports to feeling somewhat improved. Patient is voiding but denies any passing of gas or bowel movement. Patient continues on clear liquids with general surgery following and has been instructed to increase activity as tolerated. Continue incentive spirometer use. Patient is currently weaning FiO2 as tolerated and is on 2 L. Patient does not wear oxygen outpatient. Patient is afebrile and white count is trending down. Infectious disease following and patient is maintained on antibiotics. 04/06/2024 Patient is seen in follow-up today feeling slightly improved and is currently sitting up in the chair on room air tolerating thus far. Encouraged incentive spirometer use at least 10 times every hour while awake and getting up and frequent walking. Patient reports passing some gas and was able to have a very scant amount of bowel movement yesterday and continued on bowel regimen along with clear liquids per surgery. White count is trending down and patient is continued on antibiotics with infectious disease following. 04/07/2024 Patient is seen in follow-up today currently up and walking the halls. Patient reports is having bowel movements and urinating with no difficulties. Patient has been weaned off maintaining 90% above on room air. Patient has been instructed to continue using incentive spirometer at least 10 times every hour while awake. Patient continues on clear liquid diet per general surgery and to be advanced for them. Patient is reporting she is feeling more hungry and tired of eating clear liquids. Patient is afebrile although white count is mildly elayne vated at 12 and is maintained on antibiotics with infectious disease following. Repeat labs ordered for a.m. 04/10/2024 Patient is seen in follow-up this morning followed by general surgery and infec tious disease. Patient white count is elevated and abdomen feels more distended and repeat CT abdomen is ordered and pending. Patient continues on antibiotics with infectious disease following and diet was recently advanced to low fiber diet. Patient was having bowel movements and passing gas. Patient is voiding with no difficulties. Patient has been using incentive spirometer and currently maintaining above percent on room air. Patient is afebrile with no reports of chest pain or shortness of breath. 04/11/2024 Patient seen and evaluated today undergoing drainage tube placement for abdo jose a abscess for fluid collection. Cultures ordered and pending with infectious disease following and will await finalized cultures to determine antibiotics. Patient reporting some continued bloating and abdominal discomfort. Patient is passing gas and tolerating diet and had a large bowel movement yesterday. Patient is afebrile and white count is trending down and will continue on current antibiotic regimen while awaiting cultures. No reports of chest pain or shortness of breath. Occasional nausea, no vomiting noted. Encouraged continued walks at least 3 times per day out in the halls and continued incentive spirometer use 04/12/2024 Patient is seen in follow-up today reports to feeling bloated with abdominal distention. Patient reports she is having bowel movements and passing gas. Patient did have a drainage tube placed by interventional radiology for to abdominal abscess cultures thus far negative. Infectious disease following and patient is maintained on IV antibiotics. Patient is afebrile and white count is trending down, recommend follow-up labs in the a.m. Encouraged incentive spirometer use and continued frequent walking 04/13/2024 Patient is seen in follow-up today reports to having multiple bowel movements that are loose and occasionally a little more formed. Stool softener discontinued and patient is maintained on low fiber diet. Patient continues to have bloating distention although reports feels slightly improved. Patient continues on antibiotics with infectious disease following white count is elevated recommend follow-up CBC in the a.m. as it went up to 14 today. Patient is afebrile. Patient is using incentive spirometer and has been up and walking frequently. 04/14/2024 Patient seen in follow-up this morning continues to feel bloated with abdominal distention although is passing gas and having multiple bowel movements. Patient continues to have loose stools and will obtain a C. difficile to rule out, although suspicion is low. White count has normalized and patient remains afebrile continues on room air. Currently awaiting finalized cultures from abscess drainage with interventional radiology. Patient is admitted to surgical services with infectious disease following. Review of systems: Constitutional: No reports of fatigue, fever, or chills Cardiovascular: No reports of chest pain or palpitations Respiratory: No reports of shortness of breath or cough GI: reports of intermittent nausea although improved, no reports of vomiting, patient had multiple loose bowel movements and reports is passing gas, reports feeling distended and bloated with slight discomfort : No reports of pain or burning with urination Neurovascular: reports of generalized weakness, continued abdominal pain All medications have been reviewed PHYSICAL EXAMINATION: GENERAL: The patient is alert and oriented x4, Well developed, elderly appearing HEENT: Pupils are round and equally reacting to light. EOMI. no scleral icterus. No conjunctival pallor. Normocephalic, atraumatic. No pharyngeal erythema. No thyromegaly. CARDIOVASCULAR: S1 and S2 muffled PULMONARY: diminished breath sounds bilaterally with no wheezing or rhonchi n oted. ABDOMEN: soft. Less tender on exam. . Appears less distended, normoactive bowel sounds. No palpable organomegaly. MUSCULOSKELETAL: No joint swelling or deformity. EXTREMITIES: No cyanosis, clubbing, or pedal edema. NEUROLOGICAL: Gross neurological examination did not reveal any focal deficits. Diffuse weakness SKIN: No rashes. Assessment: Abdominal pain secondary to acute appendicitis with perforation, status post appendectomy Leukocytosis, secondary to above, improved Postoperative ileus, improved Concerns for multiple fluid collections with concerns of abscess on CT abdomen, interventional radiology evaluated and placed to drainage tube 04/11/2024, cultures are pending Continued ongoing nicotine dependence Chronic obstructive pulmonary disease, not in exacerbation Acute hypoxic respiratory failure, secondary to volume overload, improved, currently maintaining 90% and above on room air Hypomagnesemia, improved after replacement Hypokalemia, improved after replacement GI prophylaxis DVT prophylaxis Full code Plan: Recommend to continue with current medications and management per general surgery. Patient is status post appendectomy maintained on antibiotics with i nfectious disease following also patient's white count remains elevated. WBC has normalized today maintained on antibiotics recommending follow-up CBC. Patient remains afebrile Postoperative ileus appears improved although patient is having increased distention and bloating. Repeat CT abdomen suggestive of multiple fluid collections with concerns of abscess and infectious process not excluded. Interventional radiology consulted and is status post drainage tube placement 04/11/2024. Cultures obtained and negative thus far, finalized is pending with infectious disease following. Awaiting finalized cultures to adjust antibiotics Patient is now having multiple bowel movements and Reglan and Colace discontinued. C. difficile specimen was obtained and negative Continue to encourage incentive spirometer use at least 10 times every hour while awake, patient needs reencouragement and reinforcement frequently Encouraged to increase activity as tolerated with frequent walking in the halls We will continue to follow with general surgery during hospitalization. Thank you kindly for this consultation. The impression and plan of care has been dictated by Mirta Duke, nurse practitioner as directed. Dr. Jeanette MD I have performed a history and examination and MDM of this patient, discussed the same with the dictator, and agree with the dictator's assessment and plan as written ,documented as a scribe. Based on total visit time, I have performed more than 50% of the visit. Any additional findings or plans will be noted. Objective - Vital Signs Vital signs: Vital Signs Temp 98.3 F 04/14/24 07:36 Pulse 91 04/14/24 07:36 Resp 13 04/14/24 07:36 BP 106/67 04/14/24 07:36 Pulse Ox 92 L 04/14/24 07:36 FiO2 Intake & Output 04/13/24 04/14/24 04/14/24 18:59 06:59 18:59 Other: Voiding Method Toilet # Voids 3 1 - Labs CBC & Chem 7: 04/14/24 05:08 04/11/24 05:24 Labs: Abnormal Lab Results - Last 24 Hours (Table) 04/14/24 Range/Units 05:08 Plt Count 734 H (150-450) k/uL Microbiology - Last 24 Hours (Table) 04/11/24 11:25 Anaerobic Culture - Preliminary Aspirate 04/11/24 11:25 Gram Stain - Preliminary Aspirate Body Fluid Culture - Preliminary
[2024-04-15 08:00] LABS: Basophils % (A) 0 %; Eosinophils # (A) 0.2 k/uL (0-0.7); Eosinophils % (A) 2 %; HCT 37.6 % (34.0-46.0); Hypochromasia Slight; Lymphocytes # (A) 1.9 k/uL (1.0-4.8); Lymphocytes % (A) 19 %; MCH 28.4 pg (25.0-35.0); MCV 88.9 fL (80.0-100.0); Mean Platelet Volume 7.2; Monocytes # (A) 0.9 k/uL (0-1.0); Monocytes % (A) 10 %; Neutrophils # (A) 6.4 k/uL (1.3-7.7); Neutrophils % (A) 67 %; Platelet Count 715 k/uL (150-450); RBC 4.23 m/uL (3.80-5.40); RDW 13.6 % (11.5-15.5); WBC 9.6 k/uL (3.8-10.6)
[2024-04-15 08:06] LABS: African American GFR (CKD) >90 (>60 ml/min/1.73 sqM); Anion Gap 6 mmol/L; Blood Urea Nitrogen 11 mg/dL (7-17); Calcium 9.1 mg/dL (8.4-10.2); Carbon Dioxide 24 mmol/L (22-30); Chloride 107 mmol/L (98-107); Glucose 101 mg/dL (74-99); Magnesium 1.8 mg/dL (1.6-2.3); Non-African American GFR(CKD) >90 (>60 ml/min/1.73 sqM); Potassium 4.2 mmol/L (3.5-5.1); Sodium 137 mmol/L (137-145)
--- NOTE | 2024-04-15 15:01 | P.PN ---
Subjective Progress Note Date: 04/14/24 Principal diagnosis: Reason for follow-up is perforated appendicitis with abscess Patient is a 64-year-old female with a past medical history significant for varicose vein current everyday smoker presenting to the hospital with abdominal pain has been diagnosed with perforated appendicitis status post laparoscopic appendectomy and drainage of the abscess. Patient is status post CT-guided drainage of the intra-abdominal fluid collection completed on 04/11/2024. On today's evaluation that is 04/14/2024,the patient denies any fever or any chills, patient is breathing comfortably on room air, the patient denies chest pain shortness of breath and no significant cough, patient abdominal pain has decreased in intensity did have bowel movement no nausea no vomiting. The patient white count normalized to 8.5 abdominal cultures so far negative Objective - Vital Signs Vital signs: Vital Signs Temp 98.3 F 04/14/24 07:36 Pulse 91 04/14/24 07:36 Resp 13 04/14/24 07:36 BP 106/67 04/14/24 07:36 Pulse Ox 92 L 04/14/24 07:36 FiO2 Intake & Output 04/13/24 04/14/24 04/14/24 18:59 06:59 18:59 Other: Voiding Method Toilet # Voids 3 1 - Exam GENERAL DESCRIPTION: An elderly female lying in bed in no distress RESPIRATORY SYSTEM: Unlabored breathing , decreased breath sounds at bases HEART: S1 S2 regular rate and rhythm , ABDOMEN: Soft , mild tenderness EXTREMITIES: No edema feet - Labs CBC & Chem 7: 04/15/24 07:12 04/15/24 07:12 Labs: Abnormal Lab Results - Last 24 Hours (Table) 04/14/24 Range/Units 05:08 Plt Count 734 H (150-450) k/uL Microbiology - Last 24 Hours (Table) 04/11/24 11:25 Anaerobic Culture - Preliminary Aspirate 04/11/24 11:25 Gram Stain - Preliminary Aspirate Body Fluid Culture - Preliminary Assessment and Plan (1) Acute appendicitis with perforation and localized peritonitis Current Visit: Yes Status: Acute Code(s): K35.32 - AC APPENDICITIS W PERF, L OC PERITONITIS, & GANGR, W/O ABSCS SNOMED Code(s): 051560857 (2) Leukocytosis Current Visit: Yes Status: Acute Code(s): D72.829 - ELEVATED WHITE BLOOD CELL COUNT, UNSPECIFIED SNOMED Code(s): 410057199 Plan: 1patient presented to hospital with abdominal pain nausea and vomiting and this patient has been diagnosed with a perforated appendicitis with intra-abdominal abscess status post appendectomy and drainage of the abscess will need to cover for the enteric gram-negative both aerobes and anaerobes 2-blood cultures has been negative,Patient did have CT abdominal pelvis with evidence of multiple fluid collection status post CT-guided aspiration and culture which are currently pending 3patient did have shown some clinical improvement and the patient white count is normalized abdominal culture has been negative so far continue with the Zosyn Dictation was produced using [employer] dictation software. please excuse any grammatical, word or spelling errors. Time with Patient: Less than 30
--- NOTE | 2024-04-15 15:02 | P.PN ---
Subjective Progress Note Date: 04/15/24 Principal diagnosis: Reason for follow-up is perforated appendicitis with abscess Patient is a 64-year-old female with a past medical history significant for varicose vein current everyday smoker presenting to the hospital with abdominal pain has been diagnosed with perforated appendicitis status post laparoscopic appendectomy and drainage of the abscess. Patient is status post CT-guided drainage of the intra-abdominal fluid collection completed on 04/11/2024. On today's evaluation that is 04/15/2024,the patient remains to be afebrile, patient is on room air not requiring supplemental oxygen and denies any shortness of breath no chest pain or cough.Patient denies having any nausea or vomiting, abdominal pain has decreased intensity he did have a few bowel move ments. Patient white count is down to 9.6, creatinine 0.5, stool for C. difficile is negative abdominal cultures growing Eggerthella Lenta Objective - Vital Signs Vital signs: Vital Signs Temp 98.1 F 04/15/24 07:04 Pulse 95 04/15/24 08:00 Resp 18 04/15/24 08:00 BP 111/70 04/15/24 07:04 Pulse Ox 92 L 04/15/24 07:04 FiO2 Intake & Output 04/14/24 04/15/24 04/15/24 18:59 06:59 18:59 Other: Voiding Method Toilet Toilet # Voids 3 1 # Bowel Movements 1 1 - Exam GENERAL DESCRIPTION: An elderly female lying in bed in no distress RESPIRATORY SYSTEM: Unlabored breathing , decreased breath sounds at bases HEART: S1 S2 regular rate and rhythm , ABDOMEN: Soft , mild tenderness EXTREMITIES: No edema feet - Labs CBC & Chem 7: 04/15/24 07:12 04/15/24 07:12 Labs: Abnormal Lab Results - Last 24 Hours (Table) 04/15/24 04/15/24 Range/Units 07:12 07:12 Plt Count 715 H (150-450) k/uL Glucose 101 H (74-99) mg/dL Microbiology - Last 24 Hours (Table) 04/11/24 11:25 Anaerobic Culture - Preliminary Aspirate Eggerthella lenta 04/11/24 11:25 Gram Stain - Preliminary Aspirate Body Fluid Culture - Preliminary Assessment and Plan (1) Acute appendicitis with perforation and localized peritonitis Current Visit: Yes Status: Acute Code(s): K35.32 - AC APPENDICITIS W PERF, LOC PERITONITIS, & GANGR, W/O ABSCS SNOMED Code(s): 789679269 (2) Leukocytosis Current Visit: Yes Status: Acute Code(s): D72.829 - ELEVATED WHITE BLOOD CELL COUNT, UNSPECIFIED SNOMED Code(s): 603895563 Plan: 1patient presented to hospital with abdominal pain nausea and vomiting and this patient has been diagnosed with a perforated appendicitis with intra-abdominal abscess status post appendectomy and drainage of the abscess will need to cover for the enteric gram-negative both aerobes and anaerobes 2-blood cultures has been negative,Patient did have CT abdominal pelvis with evidence of multiple fluid collection status post CT-guided aspiration and culture which are currently pending 3patient did have shown some clinical improvement and the patient white count is normalized abdominal culture currently growing anaerobic gram-positive bacilli we will switch antibiotic therapy to Unasyn and if continue to improve finishing therapy with oral Augmentin Dictation was produced using [employer] dictation software. please excuse any grammatical, word or spelling errors. Time with Patient: Less than 30
[2024-04-15] MEDS: AMPICILLIN-SULBACTAM 3 GM in SODIUM CHLORIDE 0.9% 100 ML IVPB SCH (17:04)
--- NOTE | 2024-04-15 18:36 | P.PN ---
Subjective Progress Note Date: 04/15/[address] Funes Consult reason: Medical management, status post appendectomy History of present illness: This is a 64-year-old female who was recently admitted under surgical services and follows with Dr. Funes in the outpatient setting reporting having increased abdominal pain in the lower region that progressively got worse and started vomiting and came to the hospital for further evaluation. Patient was noted to have an acute appendicitis and is status post acute appendectomy. P nikki notes that her appendix was perforated. Patient is afebrile although white count is elevated again at 16 and maintained on antibiotics with infectious disease following. Repeat blood cultures pending and current cultures are negative. Patient also currently maintained on 4 L of oxygen via nasal cannula and noted to be a significant amount of IV fluids. Will decrease the rate and x-ray of the abdomen is ordered and recommend chest x-ray. Patient reports he does not wear any oxygen outpatient. Patient also noted to have mildly elevated heart rate and will obtain EKG. Per nursing staff patient has not been getting up and moving postoperatively. Will consult PT/OT therapy and encouraged to increase activity as tolerated. Diet per surgery services. Recommend to continue with bowel regimen due to pain management. 04/04/2024 Patient is seen and evaluated in follow-up today currently sitting up in the chair reports some continued abdominal discomfort also reports a pressure and pain sensation when voiding. Will obtain a repeat urinalysis and also chest x- ray shows some mild volume overload recommend titrating the fluids down and will give IV Lasix and follow-up on repeat labs. Potassium slightly low at 3.1 and magnesium, 1.5 and being replaced per protocol. Patient continues on clear liquid diet per general surgery as patient was noted to have concerns of a postoperative ileus. Patient is not passing gas and has not had a bowel movement. Encourage the patient to get up and walk frequently around the halls. 04/05/2024 Patient seen in follow-up this morning reports to feeling somewhat improved. Patient is voiding but denies any passing of gas or bowel movement. Patient continues on clear liquids with general surgery following and has been instructed to increase activity as tolerated. Continue incentive spirometer use. Patient is currently weaning FiO2 as tolerated and is on 2 L. Patient does not wear oxygen outpatient. Patient is afebrile and white count is trending down. Infectious disease following and patient is maintained on antibiotics. 04/06/2024 Patient is seen in follow-up today feeling slightly improved and is currently sitting up in the chair on room air tolerating thus far. Encouraged incentive spirometer use at least 10 times every hour while awake and getting up and frequent walking. Patient reports passing some gas and was able to have a very scant amount of bowel movement yesterday and continued on bowel regimen along wi th clear liquids per surgery. White count is trending down and patient is continued on antibiotics with infectious disease following. 04/07/2024 Patient is seen in follow-up today currently up and walking the halls. Patient reports is having bowel movements and urinating with no difficulties. Patient has been weaned off maintaining 90% above on room air. Patient has been instructed to continue using incentive spirometer at least 10 times every hour while awake. Patient continues on clear liquid diet per general surgery and to be advanced for them. Patient is reporting she is feeling more hungry and tired of eating clear liquids. Patient is afebrile although white count is mildly elevated at 12 and is maintained on antibiotics with infectious disease following. Repeat labs ordered for a.m. 04/10/2024 Patient is seen in follow-up this morning followed by general surgery and infectious disease. Patient white count is elevated and abdomen feels more distended and repeat CT abdomen is ordered and pending. Patient continues on antibiotics with infectious disease following and diet was recently advanced to low fiber diet. Patient was having bowel movements and passing gas. Patient is voiding with no difficulties. Patient has been using incentive spirometer and currently maintaining above percent on room air. Patient is afebrile with no reports of chest pain or shortness of breath. 04/11/2024 Patient seen and evaluated today undergoing drainage tube placement for abdomi nal abscess for fluid collection. Cultures ordered and pending with infectious disease following and will await finalized cultures to determine antibiotics. Patient reporting some continued bloating and abdominal discomfort. Patient is passing gas and tolerating diet and had a large bowel movement yesterday. Patient is afebrile and white count is trending down and will continue on current antibiotic regimen while awaiting cultures. No reports of chest pain or shortness of breath. Occasional nausea, no vomiting noted. Encouraged continued walks at least 3 times per day out in the halls and continued incentive spirometer use 04/12/2024 Patient is seen in follow-up today reports to feeling bloated with abdominal distention. Patient reports she is having bowel movements and passing gas. Patient did have a drainage tube placed by interventional radiology for to abdominal abscess cultures thus far negative. Infectious disease following and patient is maintained on IV antibiotics. Patient is afebrile and white count is trending down, recommend follow-up labs in the a.m. Encouraged incentive spirometer use and continued frequent walking 04/13/2024 Patient is seen in follow-up today reports to having multiple bowel movements that are loose and occasionally a little more formed. Stool softener discontinued and patient is maintained on low fiber diet. Patient continues to have bloating distention although reports feels slightly improved. Patient continues on antibiotics with infectious disease following white count is elevated recommend follow-up CBC in the a.m. as it went up to 14 today. Patient is afebrile. Patient is using incentive spirometer and has been up and walking frequently. 04/14/2024 Patient seen in follow-up this morning continues to feel bloated with abdominal distention although is passing gas and having multiple bowel movements. Patient continues to have loose stools and will obtain a C. difficile to rule out, although suspicion is low. White count has normalized and patient remains afebrile continues on room air. Currently awaiting finalized cultures from abscess drainage with interventional radiology. Patient is admitted to surgical services with infectious disease following. 04/15/2024 Patient is evaluated in follow up on the medical floor. Sitting up in the chair. Continues to report having abdominal distention and multiple loose bowel movement. C.Dif was negative. Culture from the abscess showing E. Coli and Eggerthella lenta. Continues on IV unasyn. 10 mL of milky brown drainage noted in the last 24 hours. Review of systems: Constitutional: No reports of fatigue, fever, or chills Cardiovascular: No reports of chest pain or palpitations Respiratory: No reports of shortness of breath or cough GI: reports of intermittent nausea although improved, no reports of vomiting, patient had multiple loose bowel movements and reports is passing gas, reports feeling distended and bloated with slight discomfort : No reports of pain or burning with urination Neurovascular: reports of generalized weakness, continued abdominal pain All medications have been reviewed PHYSICAL EXAMINATION: GENERAL: The patient is alert and oriented x4, Well developed, elderly appearing HEENT: Pupils are round and equally reacting to light. EOMI. no scleral icterus. No conjunctival pallor. Normocephalic, atraumatic. No pharyngeal erythema. No thyromegaly. CARDIOVASCULAR: S1 and S2 muffled PULMONARY: diminished breath sounds bilaterally with no wheezing or rhonchi noted. ABDOMEN: soft. Less tender on exam. . Appears less distended, normoactive bowel sounds. No palpable organomegaly. MUSCULOSKELETAL: No joint swelling or deformity. EXTREMITIES: No cyanosis, clubbing, or pedal edema. NEUROLOGICAL: Gross neurological examination did not reveal any focal deficits. Diffuse weakness SKIN: No rashes. Assessment: Abdominal pain secondary to acute appendicitis with perforation, status post appendectomy Leukocytosis, secondary to above, improved Postoperative ileus, improved Concerns for multiple fluid collections with concerns of abscess on CT abdomen, interventional radiology evaluated and placed to drainage tube 04/11/2024, cultures are pending Continued ongoing nicotine dependence Chronic obstructive pulmonary disease, not in exacerbation Acute hypoxic respiratory failure, secondary to volume overload, improved, currently maintaining 90% and above on room air Hypomagnesemia, improved after replacement Hypokalemia, improved after replacement GI prophylaxis DVT prophylaxis Full code Plan: Recommend to continue with current medications and management per general surgery. Patient is status post appendectomy maintained on antibiotics with infectious disease following also patient's white count remains elevated. WBC has normalized today maintained on antibiotics recommending follow-up CBC. Patient remains afebrile Postoperative ileus appears improved although patient is having increased disten tion and bloating. Repeat CT abdomen suggestive of multiple fluid collections with concerns of abscess and infectious process not excluded. Interventional radiology consulted and is status post drainage tube placement 04/11/2024. Cultures obtained showing E.Coli and positive anaerobes. ID following antibiotics have been changed to IV unasyn. Patient is now having multiple bowel movements and Reglan and Colace discontinued. C. difficile specimen was obtained and negative Continue to encourage incentive spirometer use at least 10 times every hour while awake, patient needs reencouragement and reinforcement frequently Encouraged to increase activity as tolerated with frequent walking in the halls We will continue to follow with general surgery during hospitalization. Thank you kindly for this consultation. The impression and plan of care has been dictated by Nurse Rebecca Dobbs as directed. Dr. Benjamin MD I have performed a history and physical examination and medical decision making of this patient, discussed the same with the dictator, and agree with the dictat ors assessment and plan as written, documented as a scribe. Based on total visit time, I have performed more than 50% of this visit. Objective - Vital Signs Vital signs: Vital Signs Temp 98.4 F 04/15/24 14:10 Pulse 93 04/15/24 14:10 Resp 18 04/15/24 14:10 BP 114/74 04/15/24 14:10 Pulse Ox 93 L 04/15/24 14:10 FiO2 Intake & Output 04/14/24 04/15/24 04/15/24 18:59 06:59 18:59 Output Total 10 Balance -10 Output: Drainage 10 Lower Sacrum 10 Other: Voiding Method Toilet Toilet # Voids 3 1 # Bowel Movements 1 1 - Labs CBC & Chem 7: 04/15/24 07:12 04/15/24 07:12 Labs: Abnormal Lab Results - Last 24 Hours (Table) 04/15/24 04/15/24 Range/Units 07:12 07:12 Plt Count 715 H (150-450) k/uL Glucose 101 H (74-99) mg/dL Microbiology - Last 24 Hours (Table) 04/11/24 11:25 Gram Stain - Preliminary Aspirate Body Fluid Culture - Preliminary Escherichia coli 04/11/24 11:25 Anaerobic Culture - Preliminary Aspirate Eggmary anne trentta Assessment and Plan Time with Patient: Less than 30
--- NOTE | 2024-04-15 19:44 | P.PN ---
Subjective Patient seen and evaluated at bedside. Patient doing well, sitting up in chair, abdominal pain improved, tolerating diet. Objective - Vital Signs Vital signs: Vital Signs Temp 98.4 F 04/15/24 14:10 Pulse 93 04/15/24 14:10 Resp 18 04/15/24 14:10 BP 114/74 04/15/24 14:10 Pulse Ox 93 L 04/15/24 14:10 FiO2 Intake & Output 04/15/24 04/15/24 04/16/24 06:59 18:59 06:59 Output Total 10 Balance -10 Output: Drainage 10 Lower Sacrum 10 Other: Voiding Method Toilet Toilet # Voids 1 # Bowel Movements 1 - Exam gen: nad cv: rrr pul: non labored breathing abd: soft, mild tenderness to palpation, original drain serosang, new IR drain purulent material as expected - Labs CBC & Chem 7: 04/15/24 07:12 04/15/24 07:12 Labs: Abnormal Lab Results - Last 24 Hours (Table) 04/15/24 04/15/24 Range/Units 07:12 07:12 Plt Count 715 H (150-450) k/uL Glucose 101 H (74-99) mg/dL Microbiology - Last 24 Hours (Table) 04/11/24 11:25 Gram Stain - Preliminary Aspirate Body Fluid Culture - Preliminary Escherichia coli 04/11/24 11:25 Anaerobic Culture - Preliminary Aspirate Dajuan guererro Assessment and Plan Plan: 64 yo female s/p lap appy 2/2 perforated appendicitis -IR drain demonstrating purulent output as expected -discussed w/ patient hospital course, states this is expected -ileus improving -continue daily care Time with Patient: Less than 30
--- NOTE | 2024-04-16 11:30 | P.PN ---
Subjective Progress Note Date: 04/16/24 Principal diagnosis: Appendicitis Patient sitting up in the chair. Doing fairly well. Not having much pain she says. Appetite diminished. No nausea or vomiting. 3 loose stools this morning. Cultures noted. She is afebrile. Objective - Vital Signs Vital signs: Vital Signs Temp 98.2 F 04/16/24 06:55 Pulse 83 04/16/24 10:20 Resp 18 04/16/24 10:20 BP 117/74 04/16/24 06:55 Pulse Ox 94 L 04/16/24 06:55 FiO2 Intake & Output 04/15/24 04/16/24 04/16/24 18:59 06:59 18:59 Output Total 10 10 Balance -10 -10 Output: Drainage 10 10 Abdomen 5 Lower Sacrum 10 5 Other: Voiding Method Toilet Toilet Toilet # Voids 2 # Bowel Movements 2 - Exam Abdomen: Soft, mild tenderness, incisions clean and dry, drains present with the CT-guided drain being purulent - Labs CBC & Chem 7: 04/15/24 07:12 04/15/24 07:12 Labs: Microbiology - Last 24 Hours (Table) 04/11/24 11:25 Anaerobic Culture - Final Aspirate Eggmary anne trentta 04/11/24 11:25 Gram Stain - Preliminary Aspirate Body Fluid Culture - Preliminary Escherichia coli Assessment and Plan (1) Acute appendicitis with perforation and localized peritonitis Narrative/Plan: Patient doing fairly well. Ileus improving. Continue antibiotics per infectious disease. Possible discharge home tomorrow if doing well on oral antibiotics. Current Visit: Yes Status: Acute Code(s): K35.32 - AC APPENDICITIS W PERF, LOC PERITONITIS, & GANGR, W/O ABSCS SNOMED Code(s): 428393402
--- NOTE | 2024-04-16 15:37 | P.PN ---
Subjective Progress Note Date: 04/16/24 Principal diagnosis: Reason for follow-up is perforated appendicitis with abscess Patient is a 64-year-old female with a past medical history significant for varicose vein current everyday smoker presenting to the hospital with abdominal pain has been diagnosed with perforated appendicitis status post laparoscopic appendectomy and drainage of the abscess. Patient is status post CT-guided drainage of the intra-abdominal fluid collection completed on 04/11/2024. On today's evaluation that is 04/16/2024, the patient continues to be afebrile, the patient is on room air and breathing comfortably, the Pt denies having any chest pain or cough, the patient denies having any abdominal pain no vomiting did have some diarrhea overall feeling better. Noted that has been repeated today abdominal cultures also growing E. coli Objective - Vital Signs Vital signs: Vital Signs Temp 98.5 F 04/16/24 14:00 Pulse 89 04/16/24 14:00 Resp 16 04/16/24 14:00 BP 111/58 04/16/24 14:00 Pulse Ox 93 L 04/16/24 14:00 FiO2 Intake & Output 04/15/24 04/16/24 04/16/24 18:59 06:59 18:59 Output Total 10 10 Balance -10 -10 Output: Drainage 10 10 Abdomen 5 Lower Sacrum 10 5 Other: Voiding Method Toilet Toilet Toilet # Voids 2 # Bowel Movements 2 - Exam GENERAL DESCRIPTION: An elderly female lying in bed in no distress RESPIRATORY SYSTEM: Unlabored breathing , decreased breath sounds at bases HEART: S1 S2 regular rate and rhythm , ABDOMEN: Soft , mild tenderness EXTREMITIES: No edema feet - Labs CBC & Chem 7: 04/15/24 07:12 04/15/24 07:12 Labs: Microbiology - Last 24 Hours (Table) 04/11/24 11:25 Anaerobic Culture - Final Aspirate Eggerthella lenta 04/11/24 11:25 Gram Stain - Preliminary Aspirate Body Fluid Culture - Preliminary Escherichia coli Assessment and Plan (1) Acute appendicitis with perforation and localized peritonitis Current Visit: Yes Status: Acute Code(s): K35.32 - AC APPENDICITIS W PERF, LOC PERITONITIS, & GANGR, W/O ABSCS SNOMED Code(s): 260763439 (2) Leukocytosis Current Visit: Yes Status: Acute Code(s): D72.829 - ELEVATED WHITE BLOOD CELL COUNT, UNSPECIFIED SNOMED Code(s): 768232719 Plan: 1patient presented to hospital with abdominal pain nausea and vomiting and this patient has been diagnosed with a perforated appendicitis with intra-abdominal abscess status post appendectomy and drainage of the abscess will need to cover for the enteric gram-negative both aerobes and anaerobes 2-blood cultures has been negative,Patient did have CT abdominal pelvis with evidence of multiple fluid collection status post CT-guided aspiration and culture which are currently growing E. coli and anaerobe 3with a high risk of E. coli resistant to Unasyn we will discontinue Unasyn and start the patient on Rocephin 2 g daily and oral Flagyl await sensitivity on the E. coli determine her discharge antibiotics Dictation was produced using [employer] dictation software. please excuse any gram matical, word or spelling errors. Time with Patient: Less than 30
--- NOTE | 2024-04-16 16:10 | P.PN ---
Subjective Progress Note Date: 04/16/[address] Funes Consult reason: Medical management, status post appendectomy History of present illness: This is a 64-year-old female who was recently admitted under surgical services and follows with Dr. Funes in the outpatient setting reporting having increased abdominal pain in the lower region that progressively got worse and started vomiting and came to the hospital for further evaluation. Patient was noted to have an acute appendicitis and is status post acute appendectomy. P nikki notes that her appendix was perforated. Patient is afebrile although white count is elevated again at 16 and maintained on antibiotics with infectious disease following. Repeat blood cultures pending and current cultures are negative. Patient also currently maintained on 4 L of oxygen via nasal cannula and noted to be a significant amount of IV fluids. Will decrease the rate and x-ray of the abdomen is ordered and recommend chest x-ray. Patient reports he does not wear any oxygen outpatient. Patient also noted to have mildly elevated heart rate and will obtain EKG. Per nursing staff patient has not been getting up and moving postoperatively. Will consult PT/OT therapy and encouraged to increase activity as tolerated. Diet per surgery services. Recommend to continue with bowel regimen due to pain management. 04/04/2024 Patient is seen and evaluated in follow-up today currently sitting up in the chair reports some continued abdominal discomfort also reports a pressure and pain sensation when voiding. Will obtain a repeat urinalysis and also chest x- ray shows some mild volume overload recommend titrating the fluids down and will give IV Lasix and follow-up on repeat labs. Potassium slightly low at 3.1 and magnesium, 1.5 and being replaced per protocol. Patient continues on clear liquid diet per general surgery as patient was noted to have concerns of a postoperative ileus. Patient is not passing gas and has not had a bowel movement. Encourage the patient to get up and walk frequently around the halls. 04/05/2024 Patient seen in follow-up this morning reports to feeling somewhat improved. Patient is voiding but denies any passing of gas or bowel movement. Patient continues on clear liquids with general surgery following and has been instructed to increase activity as tolerated. Continue incentive spirometer use. Patient is currently weaning FiO2 as tolerated and is on 2 L. Patient does not wear oxygen outpatient. Patient is afebrile and white count is trending down. Infectious disease following and patient is maintained on antibiotics. 04/06/2024 Patient is seen in follow-up today feeling slightly improved and is currently sitting up in the chair on room air tolerating thus far. Encouraged incentive spirometer use at least 10 times every hour while awake and getting up and frequent walking. Patient reports passing some gas and was able to have a very scant amount of bowel movement yesterday and continued on bowel regimen along wi th clear liquids per surgery. White count is trending down and patient is continued on antibiotics with infectious disease following. 04/07/2024 Patient is seen in follow-up today currently up and walking the halls. Patient reports is having bowel movements and urinating with no difficulties. Patient has been weaned off maintaining 90% above on room air. Patient has been instructed to continue using incentive spirometer at least 10 times every hour while awake. Patient continues on clear liquid diet per general surgery and to be advanced for them. Patient is reporting she is feeling more hungry and tired of eating clear liquids. Patient is afebrile although white count is mildly elevated at 12 and is maintained on antibiotics with infectious disease following. Repeat labs ordered for a.m. 04/10/2024 Patient is seen in follow-up this morning followed by general surgery and infectious disease. Patient white count is elevated and abdomen feels more distended and repeat CT abdomen is ordered and pending. Patient continues on antibiotics with infectious disease following and diet was recently advanced to low fiber diet. Patient was having bowel movements and passing gas. Patient is voiding with no difficulties. Patient has been using incentive spirometer and currently maintaining above percent on room air. Patient is afebrile with no reports of chest pain or shortness of breath. 04/11/2024 Patient seen and evaluated today undergoing drainage tube placement for abdomi nal abscess for fluid collection. Cultures ordered and pending with infectious disease following and will await finalized cultures to determine antibiotics. Patient reporting some continued bloating and abdominal discomfort. Patient is passing gas and tolerating diet and had a large bowel movement yesterday. Patient is afebrile and white count is trending down and will continue on current antibiotic regimen while awaiting cultures. No reports of chest pain or shortness of breath. Occasional nausea, no vomiting noted. Encouraged continued walks at least 3 times per day out in the halls and continued incentive spirometer use 04/12/2024 Patient is seen in follow-up today reports to feeling bloated with abdominal distention. Patient reports she is having bowel movements and passing gas. Patient did have a drainage tube placed by interventional radiology for to abdominal abscess cultures thus far negative. Infectious disease following and patient is maintained on IV antibiotics. Patient is afebrile and white count is trending down, recommend follow-up labs in the a.m. Encouraged incentive spirometer use and continued frequent walking 04/13/2024 Patient is seen in follow-up today reports to having multiple bowel movements that are loose and occasionally a little more formed. Stool softener discontinued and patient is maintained on low fiber diet. Patient continues to have bloating distention although reports feels slightly improved. Patient continues on antibiotics with infectious disease following white count is elevated recommend follow-up CBC in the a.m. as it went up to 14 today. Patient is afebrile. Patient is using incentive spirometer and has been up and walking frequently. 04/14/2024 Patient seen in follow-up this morning continues to feel bloated with abdominal distention although is passing gas and having multiple bowel movements. Patient continues to have loose stools and will obtain a C. difficile to rule out, although suspicion is low. White count has normalized and patient remains afebrile continues on room air. Currently awaiting finalized cultures from abscess drainage with interventional radiology. Patient is admitted to surgical services with infectious disease following. 04/15/2024 Patient is evaluated in follow up on the medical floor. Sitting up in the chair. Continues to report having abdominal distention and multiple loose bowel movement. C.Dif was negative. Culture from the abscess showing E. Coli and Eggerthella lenta. Continues on IV unasyn. 10 mL of milky brown drainage noted in the last 24 hours. 04/16/2024 Patient is evaluated seen in follow-up on the medical floor sitting up in the chair. Patient does continue to report abdominal distention and bowel movements. Patient continues on IV antibiotic with IV ceftriaxone and oral Flagyl which have been adjusted today following the cultures. Review of systems: Constitutional: No reports of fatigue, fever, or chills Cardiovascular: No reports of chest pain or palpitations Respiratory: No reports of shortness of breath or cough GI: reports of intermittent nausea although improved, no reports of vomiting, patient had multiple loose bowel movements and reports is passing gas, reports feeling distended and bloated with slight discomfort : No reports of pain or burning with urination Neurovascular: reports of generalized weakness, continued abdominal pain All medications have been reviewed PHYSICAL EXAMINATION: GENERAL: The patient is alert and oriented x4, Well developed, elderly appearing HEENT: Pupils are round and equally reacting to light. EOMI. no scleral icterus. No conjunctival pallor. Normocephalic, atraumatic. No pharyngeal erythema. No thyromegaly. CARDIOVASCULAR: S1 and S2 muffled PULMONARY: diminished breath sounds bilaterally with no wheezing or rhonchi noted. ABDOMEN: soft. Less tender on exam. . Appears less distended, normoactive bowel sounds. No palpable organomegaly. MUSCULOSKELETAL: No joint swelling or deformity. EXTREMITIES: No cyanosis, clubbing, or pedal edema. NEUROLOGICAL: Gross neurological examination did not reveal any focal deficits. Diffuse weakness SKIN: No rashes. Assessment: Abdominal pain secondary to acute appendicitis with perforation, status post appendectomy Leukocytosis, secondary to above, improved Postoperative ileus, improved Concerns for multiple fluid collections with concerns of abscess on CT abdomen, interventional radiology evaluated and placed to drainage tube 04/11/2024, cultures are pending Continued ongoing nicotine dependence Chronic obstructive pulmonary disease, not in exacerbation Acute hypoxic respiratory failure, secondary to volume overload, improved, currently maintaining 90% and above on room air Hypomagnesemia, improved after replacement Hypokalemia, improved after replacement GI prophylaxis DVT prophylaxis Full code Plan: Recommend to continue with current medications and management per general surgery. Patient is status post appendectomy maintained on antibiotics with infectious disease following also patient's white count remains elevated. WBC has normalized today maintained on antibiotics recommending follow-up CBC. Patient remains afebrile Postoperative ileus appears improved although patient is having increased distention and bloating. Repeat CT abdomen suggestive of multiple fluid collections with concerns of abscess and infectious process not excluded. Interventional radiology consulted and is status post drainage tube placement 04/11/2024. Cultures obtained showing E.Coli and positive anaerobes. ID following antibiotics have been changed to IV unasyn. Patient is now having multiple bowel movements and Reglan and Colace discontinued. C. difficile specimen was obtained and negative Continue to encourage incentive spirometer use at least 10 times every hour while awake, patient needs reencouragement and reinforcement frequently Encouraged to increase activity as tolerated with frequent walking in the halls We will continue to follow with general surgery during hospitalization. Thank you kindly for this consultation. The impression and plan of care has been dictated by Nurse Rinku Prac titioner as directed. Dr. Benjamin MD I have performed a history and physical examination and medical decision making of this patient, discussed the same with the dictator, and agree with the dictators assessment and plan as written, documented as a scribe. Based on total visit time, I have performed more than 50% of this visit. Objective - Vital Signs Vital signs: Vital Signs Temp 98.2 F 04/16/24 06:55 Pulse 83 04/16/24 06:55 Resp 18 04/16/24 06:55 BP 117/74 04/16/24 06:55 Pulse Ox 94 L 04/16/24 06:55 FiO2 Intake & Output 04/15/24 04/16/24 04/16/24 18:59 06:59 18:59 Output Total 10 10 Balance -10 -10 Output: Drainage 10 10 Abdomen 5 Lower Sacrum 10 5 Other: Voiding Method Toilet Toilet # Voids 2 # Bowel Movements 2 - Labs CBC & Chem 7: 04/15/24 07:12 04/15/24 07:12 Labs: Microbiology - Last 24 Hours (Table) 04/11/24 11:25 Anaerobic Culture - Final Aspirate Eggerthella lenta 04/11/24 11:25 Gram Stain - Preliminary Aspirate Body Fluid Culture - Preliminary Escherichia coli Assessment and Plan Time with Patient: Less than 30
[2024-04-16] MEDS: CHOLESTYRAMINE (WITH SUGAR) 4 GM PACKET PO SCH (16:57)
[2024-04-16] MEDS: metroNIDAZOLE 500 MG TAB PO SCH (16:57)
[2024-04-17 01:43] VITALS: BP 123/71; PULSE 86; RESP 18; TEMP 98.7
[2024-04-17 06:31] LABS: Basophils # (A) 0.1 k/uL (0-0.2); Basophils % (A) 1 %; Eosinophils # (A) 0.2 k/uL (0-0.7); Eosinophils % (A) 3 %; HCT 37.6 % (34.0-46.0); HGB 11.8 gm/dL (11.4-16.0); Hypochromasia Moderate; Lymphocytes # (A) 1.8 k/uL (1.0-4.8); Lymphocytes % (A) 24 %; MCH 28.4 pg (25.0-35.0); MCHC 31.5 g/dL (31.0-37.0); MCV 90.2 fL (80.0-100.0); Monocytes # (A) 0.9 k/uL (0-1.0); Monocytes % (A) 12 %; Neutrophils # (A) 4.4 k/uL (1.3-7.7); Neutrophils % (A) 59 %; Platelet Count 657 k/uL (150-450); RBC 4.17 m/uL (3.80-5.40); RDW 13.6 % (11.5-15.5); WBC 7.5 k/uL (3.8-10.6)
--- NOTE | 2024-05-09 14:29 | P.PN ---
Subjective Progress Note Date: 04/04/24 Principal diagnosis: Reason for follow-up is perforated appendicitis with abscess Patient is a 64-year-old female with a past medical history significant for varicose vein current everyday smoker presenting to the hospital with abdominal pain has been diagnosed with perforated appendicitis status post laparoscopic appendectomy and drainage of the abscess. On today's evaluation that is 04/04/2024, the patient continues to be afebrile, the patient is on 2 L current oxygen and breathing comfortably, the Pt denies having any chest pain or cough, the patient has been complaining of nausea but no vomiting still complains of abdominal distention and discomfort no sign ificant bowel movement. Patient white count is up to 17.25 creatinine 0.6 blood culture negative Objective - Vital Signs Vital signs: Vital Signs Temp 97.9 F 04/04/24 12:14 Pulse 76 04/04/24 12:14 Resp 16 04/04/24 12:14 BP 101/66 04/04/24 12:14 Pulse Ox 94 L 04/04/24 12:14 FiO2 Intake & Output 04/03/24 04/04/24 04/04/24 18:59 06:59 18:59 Output Total 600 1 Balance -600 -1 Output: Urine 600 1 Other: Voiding Method Toilet Toilet # Voids 3 1 - Exam GENERAL DESCRIPTION: An elderly female lying in bed in no distress RESPIRATORY SYSTEM: Unlabored breathing , decreased breath sounds at bases HEART: S1 S2 regular rate and rhythm , ABDOMEN: Soft , mild tenderness EXTREMITIES: No edema feet - Labs CBC & Chem 7: 04/06/24 05:58 04/06/24 05:58 Labs: Abnormal Lab Results - Last 24 Hours (Table) 04/04/24 04/04/24 Range/Units 05:28 05:28 WBC 17.25 H (4.50-10.00) X 10*3/uL RBC 4.07 L (4.10-5.20) X 10*6/uL Hgb 11.7 L (12.0-15.0) g/dL Hct 34.7 L (37.2-46.3) % Immature Gran # 0.28 H (0.00-0.04) X 10*3/uL Neutrophils # 13.82 H (1.80-7.70) X 10*3/uL Monocytes # 1.49 H (0.20-1.00) X 10*3/uL Potassium 3.1 L (3.5-5.5) mmol/L Calcium 8.1 L (8.7-10.3) mg/dL Microbiology - Last 24 Hours (Table) 04/02/24 07:48 Blood Culture - Preliminary Blood 04/01/24 01:21 Blood Culture - Preliminary Blood Assessment and Plan (1) Acute appendicitis with perforation and localized peritonitis Current Visit: Yes Status: Acute Code(s): K35.32 - AC APPENDICITIS W PERF, LOC PERITONITIS, & GANGR, W/O ABSCS SNOMED Code(s): 300259771 (2) Leukocytosis Current Visit: Yes Status: Acute Code(s): D72.829 - ELEVATED WHITE BLOOD CELL COUNT, UNSPECIFIED SNOMED Code(s): 450700633 Plan: 1patient presented to hospital with abdominal pain nausea and vomiting and this patient has been diagnosed with a perforated appendicitis with intra-abdominal abscess status post appendectomy and drainage of the abscess will need to cover for the enteric gram-negative both aerobes and anaerobes 2-blood cultures has been negative so far no local cultures 3-patient white count is up to 17,000 today if any further worsening may need CT abdominal pelvis repeat a CBC with a.m. labs and continue with Zosyn 3.375 g every 8 hour Dictation was produced using [employer] dictation software. please excuse any gr ammatical, word or spelling errors.
--- NOTE | 2024-05-09 14:29 | P.PN ---
Subjective Progress Note Date: 04/03/24 Principal diagnosis: Reason for follow-up is perforated appendicitis with abscess Patient is a 64-year-old female with a past medical history significant for varicose vein current everyday smoker presenting to the hospital with abdominal pain has been diagnosed with perforated appendicitis status post laparoscopic appendectomy and drainage of the abscess. On today's evaluation that is 04/03/2024,the patient remains to be afebrile, patient is on 2 L nasal cannula supplemental oxygen and denies any shortness of breath no chest pain or cough.Patient complaining of some nausea but no vomiting complaining of abdominal distention no bowel movement. The patient white count is up to 16.7 Objective - Vital Signs Vital signs: Vital Signs Temp 97.7 F 04/03/24 19:51 Pulse 102 H 04/03/24 19:51 Resp 18 04/03/24 19:51 BP 109/71 04/03/24 19:51 Pulse Ox 92 L 04/03/24 19:51 FiO2 Intake & Output 04/03/24 04/03/24 04/04/24 06:59 18:59 06:59 Intake Total 1950 Balance 1950 Intake: Intake, IV Titration 1950 Amount Lactated Ringers 1,000 ml 1800 @ 75 mls/hr IV .[id number] MARY Rx#:[id number] Piperacillin-Tazobactam 3 150 .375 gm In Sodium Chloride 0.9% 100 ml @ 25 mls/hr IVPB Q8H MARY Rx#: [id number] Other: # Voids 3 3 - Labs CBC & Chem 7: 04/06/24 05:58 04/06/24 05:58 Labs: Abnormal Lab Results - Last 24 Hours (Table) 04/03/24 Range/Units 08:15 WBC 16.7 H (3.8-10.6) k/uL Neutrophils # 14.6 H (1.3-7.7) k/uL Microbiology - Last 24 Hours (Table) 04/02/24 07:48 Blood Culture - Preliminary Blood 04/01/24 01:21 Blood Culture - Preliminary Blood Assessment and Plan (1) Acute appendicitis with perforation and localized peritonitis Current Visit: Yes Status: Acute Code(s): K35.32 - AC APPENDICITIS W PERF, LOC PERITONITIS, & GANGR, W/O ABSCS SNOMED Code(s): 489584953 (2) Leukocytosis Current Visit: Yes Status: Acute Code(s): D72.829 - ELEVATED WHITE BLOOD CELL COUNT, UNSPECIFIED SNOMED Code(s): 681912277 Plan: 1patient presented to hospital with abdominal pain nausea and vomiting and this patient has been diagnosed with a perforated appendicitis with intra-abdominal abscess status post appendectomy and drainage of the abscess will need to cover for the enteric gram-negative both aerobes and anaerobes 2-blood cultures has been negative so far no local cultures 3-patient white count is slightly up and the need to monitor closely for now continue with Zosyn 3.375 g every 8 hour Dictation was produced using [employer] dictation software. please excuse any grammatical, word or spelling errors. Time with Patient: Less than 30
--- NOTE | 2024-05-12 16:27 | CDI ---
There is documentation of "Acute appendicitis with rupture with sepsis" on progress notes dated 04/07 and 04/09. Additional clarification is requested. History/Risk Factors: Patient was admitted on 03/31 with evidence of perforated appendicitis. Patient was taken to the OR for laparoscopic appendectomy with drainage of the abscess. Progress note 04/10 states "Patient white count up to 13.36, creatinine 0.6, patient have a CT abdominal pelvis with several fluid collection question of seroma versus infection" Patient had postoperative ileus as well. Clinical Indicators: Vital signs in ED: T 98.1, Pulse 115, RR 18, BP 113/72, WBC 14.3 Treatment:Laparoscopic appendectomy, abscess drainage, IV antibiotics Can you please clarify the diagnosis of sepsis? [ XX] Sepsis, POA [ ] Sepsis ruled out [ ] Sepsis, not POA [ ] Other, please specify [ ] Unable to determine MTDD
== END 2024-04-18 14:15 | disposition home or self-care (01) | DRG 853 ==
LOC: EC 13:48 → 4SSUR 18:49
PROVIDERS: ADMIT Surgery; ATTEND Surgery
PROC: 0W9G40Z Drainage of Peritoneal Cavity with Drainage Device, Percutaneous Endoscopic Approach (ICD-10-PCS; 2024-03-31)
PROC: 0FT44ZZ Resection of Gallbladder, Percutaneous Endoscopic Approach (ICD-10-PCS; principal; 2024-03-31 19:30)
PROC: 0W9J3ZZ Drainage of Pelvic Cavity, Percutaneous Approach (ICD-10-PCS; 2024-04-11)
DX: A41.9 Sepsis, unspecified organism (principal); J96.01 Acute respiratory failure with hypoxia; K35.33 Acute appendicitis with perforation, localized peritonitis, and gangrene, with abscess; K56.7 Ileus, unspecified; F17.200 Nicotine dependence, unspecified, uncomplicated; J44.9 Chronic obstructive pulmonary disease, unspecified; E87.70 Fluid overload, unspecified; E83.42 Hypomagnesemia; E87.6 Hypokalemia; Z88.6 Allergy status to analgesic agent; Z88.5 Allergy status to narcotic agent
CPT/HCPCS: 36415; 71045; 74019; 74177; 75989; 80048; 80053; 81001; 82150; 83605; 83690; 83735; 83880; 85025; 85610; 85730; 87040; 87070; 87075; 87077; 87186; 87205; 87324; 88304; 93005; 94760; 96361; 96365; 96375; 99285; 99291